=== PATIENT | male | born 1980 | race Caucasian/White ===

== ENCOUNTER → 2016-11-10 | Outpatient (CLI) | payer BC ==
--- NOTE | 2016-11-10 16:14 | XR ---
Cervical spine HISTORY: Neck pain, degenerative disc disease 5 views of the cervical spine correlated to prior exam 19 April 2015. C7-T1 is not visualized. No other interval change. IMPRESSION: Exam is somewhat limited. No significant abnormality is evident. Cervical MRI may be of b enefit.
--- NOTE | 2016-11-10 16:16 | XR ---
Thoracic spine HISTORY: Degenerative disc disease 3 views of the thoracic spine correlated to cervical spine same day Thoracic vertebral bodies show preserved height, alignment, and bone mineralization. Disc spaces are maintained. Minimal spinal curvature is noted. Mild spondylosis resonant the upper thoracic spine. C7 -T1 junction is noted to be normal and alignment and not seen on prior cervical spine. IMPRESSION: Mild degenerative disc changes. Mild spinal curvature.
== END | disposition home or self-care (01) ==
LOC: RADXRMAIN 10:50
PROVIDERS: ATTEND Physical Medicine & Rehabilitation
DX: M50.30 Other cervical disc degeneration, unspecified cervical region (principal); M47.814 Spondylosis without myelopathy or radiculopathy, thoracic region; M43.9 Deforming dorsopathy, unspecified
CPT/HCPCS: 72050; 72072

== ENCOUNTER 2016-12-10 14:45 | Inpatient (IN) | payer BC ==
[2016-12-10] MEDS ORDERED: PANTOPRAZOLE 40 MG/10 ML VIAL IVP STA (15:12)
[2016-12-10] MEDS ORDERED: METOCLOPRAMIDE 5 MG/ML 2 ML VIAL IVP STA (15:12)
[2016-12-10] MEDS ORDERED: HYDROmorphone 1 MG/ML 1 ML SYRINGE IVP STA (15:12)
[2016-12-10] MEDS ORDERED: SODIUM CHLORIDE 0.9% 1,000 ML IV STA ×2 (15:12)
[2016-12-10] MEDS ORDERED: KETOROLAC 30 MG/ML 1 ML VIAL IVP STA (15:12)
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
[2016-12-10 15:24] LABS: Basophils % (A) 0 %; CHCM 34.9; Eosinophils # (A) 0.2 k/uL (0-0.7); Eosinophils % (A) 1 %; HCT 50.7 % (39.0-53.0); HDW 2.59; HGB 17.2 gm/dL (13.0-17.5); Luc # (Auto) 0.06; Luc % (Auto) 1; Lymphocytes # (A) 0.4 k/uL (1.0-4.8); Lymphocytes % (A) 3 %; MCH 30.2 pg (25.0-35.0); MCHC 33.9 g/dL (31.0-37.0); Mean Platelet Volume 7.8; Monocytes # (A) 0.3 k/uL (0-1.0); Monocytes % (A) 3 %; Neutrophils # (A) 9.2 k/uL (1.3-7.7); Neutrophils % (A) 91 %; RBC 5.69 m/uL (4.30-5.90); RDW 13.1 % (11.5-15.5); WBC 10.1 k/uL (3.8-10.6)
[2016-12-10 15:28] LABS: Appearance,Urine Clear (Clear); Bilirubin,Urine Negative (Negative); Glucose,Urine (UA) Negative (Negative); Ketones,Urine Negative (Negative); Leukocyte Esterase,Urine Negative (Negative); Mucus,Urine Many /hpf; Nitrite,Urine Negative (Negative); PH, Urine 5.5 (5.0-8.0); Particle Count 9379; Protein,Urine 1+ (Negative); RBC,Urine <1 /hpf (0-5); Specific Gravity,Urine 1.028 (1.001-1.035); UA Billing (MACRO vs. MICRO) MICRO; Urobilinogen,Urine <2.0 mg/dL (<2.0); WBC,Urine <1 /hpf (0-5)
[2016-12-10 15:33] LABS: ALT 61 U/L (21-72); AST 31 U/L (17-59); Alkaline Phosphatase 60 U/L (38-126); Amylase <30 U/L (30-110); Anion Gap 17 mmol/L; Blood Urea Nitrogen 15 mg/dL (9-20); Calcium 9.9 mg/dL (8.4-10.2); Carbon Dioxide 21 mmol/L (22-30); Chloride 104 mmol/L (98-107); Glucose 131 mg/dL (74-99); Non-African American GFR(MDRD) >60 (>60 ml/min/1.73 sqM); Sodium 142 mmol/L (137-145); Total Bilirubin 0.7 mg/dL (0.2-1.3)
--- NOTE | 2016-12-10 16:02 | XR ---
EXAMINATION TYPE: XR abdomen 2V DATE OF EXAM: 12/10/2016 3:41 PM CLINICAL DATA: 36-year-old male with abdominal pain, [facility] COMPARISON: 12/19/2015 FINDINGS: Lung bases are clear. No evidence for free intraperitoneal air. There are small air-fluid levels throughout the colon without significant stool burden. Air extends d istally to the rectum. No dilated small bowel loops or small bowel air-fluid level seen. No definite suspicious calcifications. IMPRESSION: 1. Findings suggest generalized ileus or enteritis with liquid stool. 2.No evidence of bowel obstruction or free intraperitoneal air.
--- NOTE | 2016-12-10 17:04 | CT ---
EXAMINATION TYPE: CT abdomen pelvis wo con DATE OF EXAM: 12/10/2016 4:46 PM COMPARISON: 11/21/2015 HISTORY: 36-year-old male with left flank and left lower quadrant pain. History of kidney stones. CT DLP: 651.4 mGycm. Automated exposure control for dose reduction was used. TECHNIQUE: Contiguous axial scanning of the abdomen and pelvis without IV contrast. Coronal and sagit darrick reconstructions performed. FINDINGS: Heart is normal size without pericardial effusion. Prominent streaks of atelectasis at the lung bases without pleural effusion. Liver is enlarged measuring 20 cm craniocaudal with decreased attenuation compatible with fatty infil tration. Some focal fatty sparing along the gallbladder fossa. Noncontrast appearance of the gallbladder, adrenal glands, right kidney, left kidney, and pancreas gr ossly unremarkable. Spleen measures at the upper limits of normal in size at 13.9 cm. No dilated small bowel, free fluid, or free air. Some prominent fluid filled small bowel loops are no guillermo in the mid to lower abdomen. Numerous scattered nonenlarged mesenteric lymph nodes are present. T here is liquid stool throughout the right hemicolon and transverse colon. Bladder is nondistended. Rectum appears normal. No abnormal fluid collection in the pelvis or pelvic lymphadenopathy seen. Bones: There may be mild degenerative spurring at the hips. No osseous destructive process. IMPRESSION: 1. No nephrolithiasis, ureteral calculus, or hydronephrosis. 2. Some prominent fluid-filled small bowel loops in the mid and lower abdomen with liquid stool in t he right hemicolon. Correlate for enteritis. 3. Hepatomegaly and hepatic steatosis. Correlate with LFTs, lipid profile, and patient risk factors. 4. Spleen measures at the upper limits of normal in size.
[2016-12-10] MEDS ORDERED: ACETAMINOPHEN IV (For NPO) 1,000 MG in EMPTY BAG 1 BAG IVPB STA (18:15)
[2016-12-10] MEDS ORDERED: cefTRIAXone 2,000 MG in SODIUM CHLORIDE 0.9% 100 ML IVPB STA (18:35)
[2016-12-10] MEDS ORDERED: NALOXONE 0.4 MG/ML 1 ML VIAL IV PRN (18:38)
[2016-12-10] MEDS ORDERED: ACETAMINOPHEN TAB 325 MG TAB PO PRN (18:38)
[2016-12-10] MEDS ORDERED: ONDANSETRON 4 MG/2 ML VIAL IVP PRN (18:38)
[2016-12-10] MEDS: HYDROmorphone 1 MG/ML 1 ML SYRINGE IV PRN ×2 (18:55→21:50)
[2016-12-10] MEDS: SODIUM CHLORIDE 0.9% 1,000 ML IV SCH (20:55)
[2016-12-10 21:09] VITALS: BMI 34.8
[2016-12-11] MEDS: HYDROmorphone 1 MG/ML 1 ML SYRINGE IV PRN ×6 (01:12→20:50)
[2016-12-11] MEDS: SODIUM CHLORIDE 0.9% 1,000 ML IV SCH ×3 (04:41→20:43)
[2016-12-11] MEDS: PANTOPRAZOLE 40 MG/10 ML VIAL IV SCH (08:34)
[2016-12-11] MEDS ORDERED: cefTRIAXone 2,000 MG in SODIUM CHLORIDE 0.9% 100 ML IVPB SCH (18:00)
[2016-12-11 22:24] VITALS: RESP 20
[2016-12-12] MEDS: HYDROmorphone 1 MG/ML 1 ML SYRINGE IV PRN ×4 (00:16→10:45)
[2016-12-12] MEDS: SODIUM CHLORIDE 0.9% 1,000 ML IV SCH ×2 (04:55→11:25)
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
[2016-12-12 07:37] VITALS: BP 120/65; PULSE 66; TEMP 96.2
[2016-12-12] MEDS: PANTOPRAZOLE 40 MG/10 ML VIAL IV SCH (08:10)
[2016-12-12 10:36] LABS: Basophils % (A) 0 %; CH 30.7; CHCM 34.6; Eosinophils # (A) 0.3 k/uL (0-0.7); Eosinophils % (A) 7 %; HCT 38.8 % (39.0-53.0); HDW 2.63; Luc # (Auto) 0.14; Luc % (Auto) 4; Lymphocytes # (A) 1.1 k/uL (1.0-4.8); Lymphocytes % (A) 27 %; MCH 30.5 pg (25.0-35.0); MCHC 34.2 g/dL (31.0-37.0); MCV 89.2 fL (80.0-100.0); Monocytes # (A) 0.4 k/uL (0-1.0); Monocytes % (A) 9 %; Neutrophils # (A) 2.1 k/uL (1.3-7.7); Neutrophils % (A) 53 %; RBC 4.35 m/uL (4.30-5.90); RDW 12.7 % (11.5-15.5); WBC (Perox) 4.32
[2016-12-12 10:41] LABS: HGB 13.3 gm/dL (13.0-17.5)
[2016-12-12 11:23] LABS: Anion Gap 10 mmol/L; Blood Urea Nitrogen 7 mg/dL (9-20); Calcium 8.5 mg/dL (8.4-10.2); Carbon Dioxide 23 mmol/L (22-30); Chloride 111 mmol/L (98-107); Glucose 89 mg/dL (74-99); Non-African American GFR(MDRD) >60 (>60 ml/min/1.73 sqM); Potassium 4.3 mmol/L (3.5-5.1); Sodium 144 mmol/L (137-145)
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
== END 2016-12-12 12:40 | disposition home or self-care (01) | DRG 392 ==
LOC: EC 14:45 → 4MS4W 18:38
PROVIDERS: ADMIT Internal Medicine; ATTEND Internal Medicine
DX: A08.4 Viral intestinal infection, unspecified (principal); R65.10 Systemic inflammatory response syndrome (SIRS) of non-infectious origin without acute organ dysfunction; K76.0 Fatty (change of) liver, not elsewhere classified; M54.5 Low back pain; R50.9 Fever, unspecified; R00.0 Tachycardia, unspecified; F17.200 Nicotine dependence, unspecified, uncomplicated; R30.0 Dysuria; R16.0 Hepatomegaly, not elsewhere classified; Z86.718 Personal history of other venous thrombosis and embolism; Z87.442 Personal history of urinary calculi; Z90.01 Acquired absence of eye; Z82.49 Family history of ischemic heart disease and other diseases of the circulatory system; Z79.891 Long term (current) use of opiate analgesic; Z79.899 Other long term (current) drug therapy; Z76.5 Malingerer [conscious simulation]; Z90.49 Acquired absence of other specified parts of digestive tract; Z71.6 Tobacco abuse counseling; Z80.3 Family history of malignant neoplasm of breast; Z80.51 Family history of malignant neoplasm of kidney
CPT/HCPCS: 36415; 74020; 74176; 80048; 80053; 80299; 81001; 82150; 83690; 85025; 87086; 96361; 96365; 96375; 96376; 99285

== ENCOUNTER 2018-11-17 16:41 | Emergency (ER) | payer BC ==
[2018-11-17 16:48] VITALS: TEMP 98.4
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
[2018-11-17] MEDS ORDERED: cloNIDine HCL 0.1 MG TAB PO STA (17:36)
[2018-11-17] MEDS ORDERED: INDOMETHACIN 25 MG CAP PO STA (17:54)
[2018-11-17] MEDS ORDERED: PROPRANOLOL 10 MG TAB PO STA (18:21)
[2018-11-17 18:30] VITALS: BP 146/100; PULSE 89; RESP 18
== END 2018-11-17 18:37 | disposition home or self-care (01) ==
LOC: EC 16:41
DX: G44.82 Headache associated with sexual activity (principal); J02.9 Acute pharyngitis, unspecified; F17.200 Nicotine dependence, unspecified, uncomplicated; Z86.69 Personal history of other diseases of the nervous system and sense organs; Z53.8 Procedure and treatment not carried out for other reasons
CPT/HCPCS: 70450; 87081; 87430; 99284

== ENCOUNTER 2019-08-31 11:02 | Emergency (ER) | payer SELFPAY ==
[2019-08-31 11:14] VITALS: TEMP 98.8
[2019-08-31] MEDS ORDERED: methylPREDNISolone SOD SUCCI 125 MG/2 ML VIAL IV STA (11:35)
[2019-08-31] MEDS ORDERED: FAMOTIDINE 20 MG/2 ML VIAL IV STA (11:35)
[2019-08-31] MEDS ORDERED: MORPHINE SULFATE 4 MG/ML SYRINGE IVP STA (11:35)
[2019-08-31 12:36] LABS: Basophils # (A) 0.1 k/uL (0-0.2); Basophils % (A) 1 %; Eosinophils # (A) 0.4 k/uL (0-0.7); Eosinophils % (A) 4 %; HCT 45.2 % (39.0-53.0); HGB 15.7 gm/dL (13.0-17.5); Lymphocytes # (A) 1.7 k/uL (1.0-4.8); Lymphocytes % (A) 17 %; MCH 32.2 pg (25.0-35.0); MCHC 34.7 g/dL (31.0-37.0); MCV 92.8 fL (80.0-100.0); Mean Platelet Volume 8.3; Monocytes # (A) 0.6 k/uL (0-1.0); Monocytes % (A) 6 %; Neutrophils # (A) 7.1 k/uL (1.3-7.7); Neutrophils % (A) 71 %; Platelet Count 146 k/uL (150-450); RBC 4.87 m/uL (4.30-5.90); RDW 12.7 % (11.5-15.5)
[2019-08-31 12:41] LABS: ALT 132 U/L (21-72); AST 64 U/L (17-59); African American GFR (CKD) >90 (>60 ml/min/1.73 sqM); Albumin 4.2 g/dL (3.5-5.0); Alkaline Phosphatase 83 U/L (38-126); Anion Gap 9 mmol/L; Blood Urea Nitrogen 9 mg/dL (9-20); C Reactive Protein 9.2 mg/L (<10.0); Calcium 8.9 mg/dL (8.4-10.2); Carbon Dioxide 23 mmol/L (22-30); Chloride 108 mmol/L (98-107); Glucose 108 mg/dL (74-99); Potassium 3.7 mmol/L (3.5-5.1); Sodium 140 mmol/L (137-145); Total Bilirubin 0.3 mg/dL (0.2-1.3); Total Protein 7.1 g/dL (6.3-8.2)
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
[2019-08-31 13:51] VITALS: BP 136/88; PULSE 87; RESP 16
== END 2019-08-31 13:51 | disposition home or self-care (01) ==
LOC: EC 11:02
DX: L03.211 Cellulitis of face (principal); J32.4 Chronic pansinusitis; F17.200 Nicotine dependence, unspecified, uncomplicated; Z88.1 Allergy status to other antibiotic agents; Z97.0 Presence of artificial eye; Z87.828 Personal history of other (healed) physical injury and trauma; Z98.890 Other specified postprocedural states
CPT/HCPCS: 99284; 96374; 96375 ×2; 36415; 80053; 85025; 86140; 70487; J2270; J2930; Q9967

== ENCOUNTER 2020-01-20 10:51 | Emergency (ER) | payer OTHER ==
[2020-01-20 10:55] VITALS: RESP 18; TEMP 98.2
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
--- NOTE | 2020-01-20 11:18 | XR ---
EXAMINATION TYPE: XR chest 2V DATE OF EXAM: 01/20/2020 COMPARISON: NONE HISTORY: Flulike symptoms and cough. TECHNIQUE: Frontal and lateral views of the chest are obtained. FINDINGS: Low lung volumes with bilateral perihilar peribronchial cuffing. There is no suspicious pe ripheral focal air space opacity, pleural effusion, or pneumothorax seen. The cardiac silhouette siz e is upper limits of normal. The osseous structures are intact. IMPRESSION: Central perihilar peribronchial cuffing consistent with reactive airway disease possibly from a viral bronchiolitis.
[2020-01-20 11:53] VITALS: BP 153/93; PULSE 86
== END 2020-01-20 11:45 | disposition home or self-care (01) ==
LOC: EC 10:51
DX: J20.9 Acute bronchitis, unspecified (principal); T46.1X5A Adverse effect of calcium-channel blockers, initial encounter; M79.89 Other specified soft tissue disorders; F17.200 Nicotine dependence, unspecified, uncomplicated; Z90.01 Acquired absence of eye
CPT/HCPCS: 71046; 87502; 99283

== ENCOUNTER 2020-04-05 12:32 | Inpatient (IN) | payer OTHER ==
[2020-04-05] MEDS ORDERED: MORPHINE SULFATE 4 MG/ML SYRINGE IVP STA (13:42)
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
[2020-04-05 13:59] LABS: Basophils # (A) 0.1 k/uL (0-0.2); Basophils % (A) 1 %; Eosinophils # (A) 0.2 k/uL (0-0.7); Eosinophils % (A) 3 %; HCT 43.5 % (39.0-53.0); HGB 13.8 gm/dL (13.0-17.5); Lymphocytes # (A) 1.7 k/uL (1.0-4.8); Lymphocytes % (A) 24 %; MCHC 31.7 g/dL (31.0-37.0); MCV 100.9 fL (80.0-100.0); Macrocytosis Slight; Mean Platelet Volume 10.7; Monocytes # (A) 0.5 k/uL (0-1.0); Monocytes % (A) 7 %; Neutrophils # (A) 4.4 k/uL (1.3-7.7); Neutrophils % (A) 63 %; Platelet Count 100 k/uL (150-450); RBC 4.31 m/uL (4.30-5.90); RDW 14.3 % (11.5-15.5)
[2020-04-05 14:08] LABS: INR 1.3 (<1.2); Partial Thromboplastin Time 28.2 sec (22.0-30.0); Prothrombin Time 12.6 sec (9.0-12.0)
[2020-04-05 14:11] LABS: Albumin 4.3 g/dL (3.5-5.0); Calcium 7.9 mg/dL (8.4-10.2); Potassium 2.8 mmol/L (3.5-5.1); Total Bilirubin 3.1 mg/dL (0.2-1.3); Total Protein 8.2 g/dL (6.3-8.2)
[2020-04-05 14:13] LABS: Appearance,Urine Turbid (Clear); Bilirubin,Urine 1+ (Negative); Blood,Urine Small (Negative); Color,Urine Light Brown; Glucose,Urine (UA) Negative (Negative); Ketones,Urine Negative (Negative); Leukocyte Esterase,Urine Negative (Negative); Nitrite,Urine Negative (Negative); Protein,Urine 1+ (Negative); RBC,Urine 3 /hpf (0-5); Specific Gravity,Urine 1.019 (1.001-1.035); WBC,Urine 3 /hpf (0-5)
--- NOTE | 2020-04-05 14:23 | XR ---
EXAMINATION TYPE: XR shoulder complete RT DATE OF EXAM: 04/05/2020 COMPARISON: NONE HISTORY: Pain TECHNIQUE: Three views are submitted. FINDINGS: The osseous structures are intact. There is no acute fracture or dislocation. The AC joint is maint ained. IMPRESSION: 1. No acute process. If symptoms persist consider MRI.
--- NOTE | 2020-04-05 14:24 | XR ---
EXAMINATION TYPE: XR Hip Complete RT DATE OF EXAM: 04/05/2020 COMPARISON: NONE HISTORY: Pain TECHNIQUE: 2 views submitted FINDINGS: There is no evidence of erosive change or acute fracture. Very mild hypertrophic change along the lateral margin the acetabulum which can sometimes be associat ed with femoral acetabular impingement. IMPRESSION: 1. No evidence of acute fracture or dislocation. 2. Correlate for femoral acetabular impingement.
--- NOTE | 2020-04-05 14:24 | XR ---
EXAMINATION TYPE: XR chest 2V DATE OF EXAM: 04/05/2020 COMPARISON: 01/20/2020 TECHNIQUE: PA and lateral views submitted. HISTORY: Shortness of breath FINDINGS: The lungs are clear and there is no pneumothorax, pleural effusion, or focal pneumonia. Biapical pl eural thickening. No overt failure. Subsegmental changes at the lung bases most typical of atelectasi s or scar. IMPRESSION: 1. Limited inspiration. Subsegmental changes the lung bases for which atelectasis favored over pneumo karen. Correlate clinically.
[2020-04-05] MEDS ORDERED: POTASSIUM CHLORIDE ER 20 MEQ TAB.ER PO STA (16:01)
[2020-04-05] MEDS ORDERED: KETOROLAC 30 MG/ML 1 ML VIAL IVP STA (16:17)
[2020-04-05] MEDS ORDERED: SODIUM CHLORIDE 0.9% 1,000 ML IV STA (16:17)
[2020-04-05] MEDS ORDERED: ONDANSETRON 4 MG/2 ML VIAL IVP STA (16:17)
[2020-04-05] MEDS ORDERED: METOCLOPRAMIDE 5 MG/ML 2 ML VIAL IVP STA (16:46)
[2020-04-05] MEDS ORDERED: diphenhydrAMINE 50 MG/ML 1 ML VIAL IVP STA (16:46)
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
[2020-04-05] MEDS ORDERED: NALOXONE 0.4 MG/ML 1 ML VIAL IV PRN (18:09)
[2020-04-05] MEDS ORDERED: ALPRAZolam 0.25 MG TAB PO PRN (18:09)
[2020-04-05] MEDS ORDERED: SODIUM CHLORIDE 0.9% 1,000 ML IV SCH (18:15)
[2020-04-05] MEDS ORDERED: THIAMINE 100 MG/ML 2 ML VIAL IM STA (19:22)
[2020-04-05] MEDS ORDERED: LORazepam 2 MG/ML INJ IV PRN (19:22)
[2020-04-05 19:29] LABS: Amylase 48 U/L (30-110)
[2020-04-05] MEDS: MAGNESIUM SULFATE-D5W PMX 1 GM in DEXTROSE/WATER 1 100ML.BAG IVPB SCH ×2 (19:37→21:29)
[2020-04-05] MEDS: HYDROmorphone 0.5 MG/0.5 ML SYRINGE IVP PRN (21:30)
[2020-04-05] MEDS ORDERED: IOPAMIDOL CONTRAST (ORAL USE) VIAL PO PRN (22:57)
[2020-04-05] MEDS ORDERED: Magnesium Replacement Protocol 1 EACH MISC MISCELLANE PRN (22:59)
[2020-04-05] MEDS ORDERED: Potassium Replacement Protocol 1 EACH MISC MISCELLANE PRN (22:59)
[2020-04-05] MEDS: SODIUM CHLORIDE 0.9% 1,000 ML with POTASSIUM CHLORIDE 40 MEQ IV SCH ×2 (23:56)
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
[2020-04-06] MEDS: HYDROmorphone 0.5 MG/0.5 ML SYRINGE IVP PRN (02:52)
[2020-04-06] MEDS: PANTOPRAZOLE 40 MG/10 ML VIAL IVP SCH ×2 (07:57→20:20)
[2020-04-06] MEDS: HEPARIN SODIUM,PORCINE 5,000 UNIT/ML 1 ML VIAL SQ SCH ×2 (07:57→20:20)
[2020-04-06] MEDS: SODIUM CHLORIDE 0.9% 1,000 ML with POTASSIUM CHLORIDE 40 MEQ IV SCH ×2 (07:57)
[2020-04-06 08:01] LABS: Basophils % (A) 1 %; Eosinophils # (A) 0.1 k/uL (0-0.7); Eosinophils % (A) 1 %; HCT 38.7 % (39.0-53.0); HGB 12.8 gm/dL (13.0-17.5); Lymphocytes # (A) 0.8 k/uL (1.0-4.8); Lymphocytes % (A) 13 %; MCH 33.7 pg (25.0-35.0); MCV 102.2 fL (80.0-100.0); Macrocytosis Slight; Mean Platelet Volume 10.9; Monocytes # (A) 0.4 k/uL (0-1.0); Monocytes % (A) 6 %; Neutrophils # (A) 4.7 k/uL (1.3-7.7); Neutrophils % (A) 78 %; RBC 3.79 m/uL (4.30-5.90); RDW 14.4 % (11.5-15.5)
[2020-04-06 08:03] LABS: Albumin 3.6 g/dL (3.5-5.0); Calcium 7.2 mg/dL (8.4-10.2); Magnesium 1.1 mg/dL (1.6-2.3); Total Bilirubin 4.6 mg/dL (0.2-1.3); Total Protein 7.2 g/dL (6.3-8.2)
[2020-04-06 08:07] LABS: Potassium 2.7 mmol/L (3.5-5.1)
[2020-04-06] MEDS: LORazepam 2 MG/ML INJ IV PRN ×2 (08:14→13:50)
[2020-04-06] MEDS ORDERED: Potassium Replacement Protocol 1 EACH MISC MISCELLANE PRN ×2 (08:15→11:52)
[2020-04-06] MEDS: POTASSIUM CHLORIDE ER 20 MEQ TAB.ER PO SCH ×6 (08:19→15:12)
[2020-04-06 08:49] LABS: Platelet Count 66 k/uL (150-450)
[2020-04-06] MEDS ORDERED: PANTOPRAZOLE 40 MG/10 ML VIAL IV SCH (09:00)
[2020-04-06] MEDS ORDERED: LOSARTAN 50 MG TAB PO SCH (09:00)
[2020-04-06] MEDS ORDERED: Magnesium Replacement Protocol 1 EACH MISC MISCELLANE PRN (09:00)
[2020-04-06] MEDS: MAGNESIUM SULFATE-D5W PMX 1 GM in DEXTROSE/WATER 1 100ML.BAG IVPB SCH ×3 (09:12→11:32)
--- NOTE | 2020-04-06 11:04 | CT ---
EXAMINATION TYPE: CT abdomen pelvis wo con DATE OF EXAM: 04/06/2020 COMPARISON: 12/10/2016 INDICATION: Abd pain DLP: 1363.4 mGycm, Automated exposure control for dose reduction was used. CONTRAST: 0 mL of Isovue 300. Study performed without Oral Contrast TECHNIQUE: Axial images were obtained from above the diaphragm to the pubic rami in the axial plane a t 5 mm thick sections. Reconstructed images are reviewed on the computer in the coronal plane. FINDINGS: Limited CT sections are obtained the lung bases. There is some thickening along the major fissure on the right which may be some underlying atelectasis. Minimal fluid could be considered. No pleural ef fusion is identified however. Remainder the lung bases visualized are unremarkable. CT ABDOMEN: Liver: There is moderate to severe fatty infiltration to the liver. Adjacent to the gallbladder bed f daniel is a lobular hypodense area of uncertain etiology. Underlying mass is considered. This measures 4.2 x 3.1 cm. Spleen: Enlarged. This is larger than the comparison 2016. This measures 17.5 cm AP by 16.2 cm cranio caudal dimension Pancreas: Normal Adrenal glands: The adrenal glands are normal. Gallbladder: Normal Kidneys: No masses are evident. No hydronephrosis is present. No cysts are present. No renal stone s are identified. Aorta: Vascular calcification is within the aorta. Inferior vena cava: Normal. CT PELVIS: The ascending colon has thickened wall which extends into the proximal transverse colon. Correlate fo r colitis. Milder wall thickening is within the descending colon. There is thickened wall to the sigm oid colon. Correlate for colitis. Appendix: Not identified. Patient has a history of prior appendectomy. Urinary bladder: Decompressed with limited evaluation. Genitourinary structures: Prostate is unremarkable. Osseous structures: No suspicious lytic or sclerotic lesions. IMPRESSIONS: 1. Colitis involving both ascending and descending colon as well as sigmoid colon. 2. Minimal free fluid within the pelvis. 3. Significant fatty infiltration to the enlarged liver. Hypodense lobular mass near the gallbladder bed fossa cannot be excluded. 4. Organomegaly prior exam
--- NOTE | 2020-04-06 13:18 | XR ---
EXAMINATION TYPE: XR chest 1V portable DATE OF EXAM: 04/06/2020 COMPARISON: 04/05/2020 HISTORY: Shortness of breath TECHNIQUE: Single frontal view of the chest is obtained. FINDINGS: There is no focal air space opacity, pleural effusion, or pneumothorax seen. The cardiac silhouette size is within normal limits. The osseous structures are intact. Subsegmental changes at the lung bases. IMPRESSION: Basilar atelectasis favored over pneumonia correlate clinically for confirmation.
[2020-04-06] MEDS: amLODIPine 5 MG TAB PO SCH (13:50)
[2020-04-06] MEDS: AMPICILLIN-SULBACTAM 3 GM in SODIUM CHLORIDE 0.9% 100 ML IVPB SCH ×2 (13:51→20:23)
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
[2020-04-06] MEDS: HYDROcodone/APAP 5-325MG 1 EACH TAB PO PRN (20:22)
[2020-04-07] MEDS: LORazepam 2 MG/ML INJ IV PRN ×3 (00:16→21:04)
[2020-04-07] MEDS: HYDROcodone/APAP 5-325MG 1 EACH TAB PO PRN (05:48)
[2020-04-07] MEDS: AMPICILLIN-SULBACTAM 3 GM in SODIUM CHLORIDE 0.9% 100 ML IVPB SCH ×3 (05:50→21:46)
[2020-04-07] MEDS: SODIUM CHLORIDE 0.9% 1,000 ML with POTASSIUM CHLORIDE 40 MEQ IV SCH ×2 (05:54)
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
[2020-04-07] MEDS: HEPARIN SODIUM,PORCINE 5,000 UNIT/ML 1 ML VIAL SQ SCH ×2 (07:45→21:03)
[2020-04-07] MEDS: amLODIPine 5 MG TAB PO SCH (07:45)
[2020-04-07] MEDS: PANTOPRAZOLE 40 MG/10 ML VIAL IVP SCH ×2 (07:45→21:03)
[2020-04-07 08:47] LABS: Basophils % (A) 1 %; Eosinophils # (A) 0.2 k/uL (0-0.7); Eosinophils % (A) 4 %; HCT 39.1 % (39.0-53.0); HGB 12.6 gm/dL (13.0-17.5); Lymphocytes # (A) 1.1 k/uL (1.0-4.8); Lymphocytes % (A) 19 %; MCH 33.8 pg (25.0-35.0); MCHC 32.3 g/dL (31.0-37.0); MCV 104.6 fL (80.0-100.0); Macrocytosis Moderate; Mean Platelet Volume 11.8; Monocytes # (A) 0.4 k/uL (0-1.0); Monocytes % (A) 6 %; Neutrophils # (A) 3.8 k/uL (1.3-7.7); Neutrophils % (A) 68 %; RBC 3.73 m/uL (4.30-5.90); RDW 14.4 % (11.5-15.5); WBC 5.6 k/uL (3.8-10.6)
[2020-04-07 08:49] LABS: Platelet Count 66 k/uL (150-450)
[2020-04-07 09:11] LABS: ALT 25 U/L (4-49); AST 172 U/L (17-59); African American GFR (CKD) >90 (>60 ml/min/1.73 sqM); Albumin 3.7 g/dL (3.5-5.0); Alkaline Phosphatase 206 U/L (38-126); Anion Gap 13 mmol/L; Blood Urea Nitrogen 9 mg/dL (9-20); Calcium 7.5 mg/dL (8.4-10.2); Carbon Dioxide 26 mmol/L (22-30); Chloride 103 mmol/L (98-107); Glucose 94 mg/dL (74-99); Non-African American GFR(CKD) 86 (>60 ml/min/1.73 sqM); Potassium 2.9 mmol/L (3.5-5.1); Sodium 142 mmol/L (137-145); Total Protein 7.4 g/dL (6.3-8.2)
[2020-04-07] MEDS: POTASSIUM CHLORIDE ER 20 MEQ TAB.ER PO SCH ×6 (10:04→18:07)
[2020-04-07] MEDS ORDERED: Magnesium Replacement Protocol 1 EACH MISC MISCELLANE PRN (10:31)
[2020-04-07] MEDS: MAGNESIUM SULFATE-D5W PMX 1 GM in DEXTROSE/WATER 1 100ML.BAG IVPB SCH ×4 (11:29→16:46)
[2020-04-07] MEDS ORDERED: PEG 3350-NA SULF,BICARB,CL/KCL 4,000 ML BOTTLE PO ONE (12:00)
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
[2020-04-07] MEDS ORDERED: Potassium Replacement Protocol 1 EACH MISC MISCELLANE PRN (14:31)
--- NOTE | 2020-04-07 15:03 | P.PN ---
Subjective Progress Note Date: 04/07/20 CHIEF COMPLAINT: Cholecystitis HISTORY OF PRESENT ILLNESS: Patient examined at the bedside with Dr. Quan. He denies abdominal pain. Tolerating clear liquid diet. Denies nausea or vomiting. Vital signs are stable. He is afebrile. W BC 5.6. Hemoglobin 12.6. Potassium 2.9. Bilirubin increased from 4.6-8.0. AST 172. ALT 25. PHYSICAL EXAM: VITAL SIGNS: Reviewed. GENERAL: Well-developed in no acute distress. HEENT: No sclera icterus. Extraocular movements grossly intact. Moist buccal mucosa. Head is atraumatic, normocephalic. ABDOMEN: Soft. Nondistended. Nontender. NEUROLOGIC: Alert and oriented. Cranial nerves II through XII grossly intact. ASSESSMENT: 1. Abdominal pain 2. Colitis 3. History of alcohol abuse 4. Biliary sludge 5. Hyperbilirubinemia PLAN: -Continue clear liquid diet. Nothing by mouth at midnight -Patient to complete GoLYTELY bowel prep today -Patient to undergo colonoscopy tomorrow with Dr. Quan Nurse practitioner note has been reviewed by physician. Signing provider agrees with the documented findings, assessment, and plan of care. Objective - Vital Signs Vital signs: Vital Signs Temp 98.3 F 04/07/20 07:00 Pulse 89 04/07/20 07:00 Resp 18 04/07/20 07:00 BP 142/87 04/07/20 07:00 Pulse Ox 91 L 04/07/20 07:00 Intake & Output 04/06/20 04/07/20 04/07/20 18:59 06:59 18:59 Intake Total 1100 Balance 1100 Intake: Intake, IV Titration 1000 Amount Ampicillin-Sulbactam 3 gm 100 In Sodium Chloride 0.9% 100 ml @ 200 mls/hr IVPB Q8H [facility] Rx#:[id number] Sodium Chloride 0.9% 1, 900 000 ml @ 75 mls/hr IV . [id number] [facility] with Potassium Chloride 40 meq Rx#:[id number] Oral 100 Other: Voiding Method Toilet Toilet Urinal Urinal # Voids 1 2 # Bowel Movements 2 - Labs CBC & Chem 7: 04/07/20 07:53 04/07/20 14:01 Labs: Abnormal Lab Results - Last 24 Hours (Table) 0604/07/20 04/07/20 Range/Units 16:55 07:53 07:53 RBC 3.73 L (4.30-5.90) m/uL Hgb 12.6 L (13.0-17.5) gm/dL MCV 104.6 H (80.0-100.0) fL Plt Count 66 L (150-450) k/uL Potassium 3.0 L 2.9 L (3.5-5.1) mmol/L Calcium 7.5 L (8.4-10.2) mg/dL Magnesium (1.6-2.3) mg/dL Total Bilirubin 8.0 H (0.2-1.3) mg/dL AST 172 H (17-59) U/L Alkaline Phosphatase 206 H (38-126) U/L 04/07/20 Range/Units 07:53 RBC (4.30-5.90) m/uL Hgb (13.0-17.5) gm/dL MCV (80.0-100.0) fL Plt Count (150-450) k/uL Potassium (3.5-5.1) mmol/L Calcium (8.4-10.2) mg/dL Magnesium 1.2 L (1.6-2.3) mg/dL Total Bilirubin (0.2-1.3) mg/dL AST (17-59) U/L Alkaline Phosphatase (38-126) U/L Microbiology - Last 24 Hours (Table) 04/05/20 13:58 Group A Strep Throat Culture - Final Throat
[2020-04-07 20:42] LABS: Magnesium 1.6 mg/dL (1.6-2.3)
[2020-04-07 22:13] LABS: Potassium 2.7 mmol/L (3.5-5.1)
[2020-04-08] MEDS: 0.9% NACL WITH KCL 40 MEQ/L 1,000 ML IV SCH ×2 (00:11→12:16)
[2020-04-08] MEDS: LORazepam 2 MG/ML INJ IV PRN ×7 (00:23→23:08)
[2020-04-08] MEDS: AMPICILLIN-SULBACTAM 3 GM in SODIUM CHLORIDE 0.9% 100 ML IVPB SCH ×3 (05:38→23:07)
[2020-04-08] MEDS ORDERED: LORazepam 2 MG/ML INJ IV STA (06:34)
[2020-04-08] MEDS: HEPARIN SODIUM,PORCINE 5,000 UNIT/ML 1 ML VIAL SQ SCH ×2 (08:18→23:08)
[2020-04-08] MEDS: amLODIPine 5 MG TAB PO SCH (08:23)
[2020-04-08] MEDS: PANTOPRAZOLE 40 MG/10 ML VIAL IVP SCH ×2 (08:23→23:08)
[2020-04-08 08:53] LABS: Basophils % (A) 0 %; Eosinophils # (A) 0.2 k/uL (0-0.7); Eosinophils % (A) 4 %; HCT 35.2 % (39.0-53.0); HGB 12.1 gm/dL (13.0-17.5); Lymphocytes % (A) 20 %; MCHC 34.5 g/dL (31.0-37.0); MCV 101.4 fL (80.0-100.0); Macrocytosis Slight; Mean Platelet Volume 10.7; Monocytes # (A) 0.4 k/uL (0-1.0); Monocytes % (A) 7 %; Neutrophils # (A) 3.5 k/uL (1.3-7.7); Neutrophils % (A) 67 %; RBC 3.47 m/uL (4.30-5.90); RDW 14.3 % (11.5-15.5); WBC 5.3 k/uL (3.8-10.6)
[2020-04-08 08:54] LABS: Platelet Count 64 k/uL (150-450)
[2020-04-08 09:00] LABS: ALT 26 U/L (4-49); AST 155 U/L (17-59); African American GFR (CKD) >90 (>60 ml/min/1.73 sqM); Albumin 3.4 g/dL (3.5-5.0); Alkaline Phosphatase 178 U/L (38-126); Anion Gap 9 mmol/L; Blood Urea Nitrogen 8 mg/dL (9-20); Carbon Dioxide 28 mmol/L (22-30); Chloride 104 mmol/L (98-107); Glucose 82 mg/dL (74-99); Magnesium 1.1 mg/dL (1.6-2.3); Non-African American GFR(CKD) >90 (>60 ml/min/1.73 sqM); Sodium 141 mmol/L (137-145); Total Bilirubin 8.7 mg/dL (0.2-1.3); Total Protein 6.9 g/dL (6.3-8.2)
[2020-04-08 09:20] LABS: Potassium 2.5 mmol/L (3.5-5.1)
[2020-04-08] MEDS ORDERED: POTASSIUM CHLORIDE ER 20 MEQ TAB.ER PO STA (09:57)
[2020-04-08] MEDS ORDERED: Magnesium Replacement Protocol 1 EACH MISC MISCELLANE PRN (10:10)
[2020-04-08] MEDS: MAGNESIUM SULFATE-D5W PMX 1 GM in DEXTROSE/WATER 1 100ML.BAG IVPB SCH ×3 (10:25→14:23)
--- NOTE | 2020-04-08 13:37 | P.PN ---
Subjective Progress Note Date: 04/08/20 Principal diagnosis: Is a 39-year-old male recently admitted with upper abdominal pain, vomiting, diarrhea is being closely monitored. Patient's LFTs were elevated and patient was also found to have hypomagnesemia along with hypokalemia. Patient underwent an abdominal ultrasound which showed some biliary sludge suggested of cholecystitis and being evaluated by surgery. During examination patient does admit to drinking large amounts of whiskey daily and was placed on CIWA p rotocol. Patient continues to have some shaking with intermittent nausea and diarrhea noted. Patient underwent a CT of the abdomen showing moderate to severe fatty infiltration of the liver, a lobular hypodense area of uncertain etiology with the possibility of an underlying mass measuring approximately 4.2 cm x 3.1 cm, spleen is enlarged, colitis involving both ascending and descending colon as well as sigmoid colon along with minimal free fluid within the pelvis. Patient having intermittent episodes of shortness of breath and a chest x-ray was done showing basilar atelectasis. Patient will be initiated on Unasyn. Patient is to continue with a clear liquid diet and await surgical evaluation. 04/07/2020 Patient is seen and evaluated and follow-up and is currently starting a prep for a colonoscopy in the morning with Dr. Quan. Patient is maintained on CIWA protocol and states he is feeling better than yesterday. Patient continues to have abdominal tenderness along with some nausea and diarrhea. Potassium this morning continues to be low at 2.9 and will be replaced. Magnesium is also 1.2 and being replaced. Current creatinine is 1.09 with slight improvement today. Patient denies any acute overnight issues. No reports of chest pain or palpitations. Patient denies shortness of breath. Patient is afebrile. 04/08/2020 Patient is seen and evaluated and follow-up and is having withdrawals with intermittent episodes of hallucinating requiring Ativan. Patient was scheduled to undergo colonoscopy although was canceled by anesthesia as potassium is currently 2.5 and magnesium is 1.1. Patient has completed a bowel prep and continues to have liquid stools. Patient is maintained on CIWA protocol and will continue. Spoke to the family members and they wish to proceed with the colonoscopy and his treatment plan and patient was made aware. Throughout the night, per nursing staff patient removed multiple IVs with attempts at leaving AGAINST MEDICAL ADVICE. Currently patient is resting and in no acute distress at this time. Replacing magnesium and potassium per protocol and will repeat labs with the colonoscopy being rescheduled for tomorrow morning. Surgery is following. Objective - Vital Signs Vital signs: Vital Signs Temp 98.5 F 04/08/20 00:49 Pulse 115 H 04/08/20 03:08 Resp 20 04/08/20 03:54 BP 131/82 04/08/20 00:49 Pulse Ox 95 04/08/20 00:49 Intake & Output 04/07/20 04/08/20 04/08/20 18:59 06:59 18:59 Intake Total 1140 Balance 1140 Intake: Intake, IV Titration 900 Amount 0.9% NaCl with KCl 40 Meq 900 /l 1,000 ml @ 75 mls/hr IV .[id number] ILSA Rx#: [id number] Oral 240 Other: Voiding Method Toilet Urinal # Voids 2 1 # Bowel Movements 1 1 - Exam Gen: This is a 39-year-old male sitting up in the chair asleep but arousable, a lert and oriented 1-2, well-developed, well-nourished, obese HEENT: Head is atraumatic, normocephalic. Pupils equal, round. Sclerae is anicteric. NECK: Supple. No JVD. No lymphadenopathy. No thyromegaly. LUNGS: Diminished breath sounds with no wheezing or rhonchi noted. No intercostal retractions. HEART: Regular rate and rhythm. No murmur. ABDOMEN: Soft. Obese. Bowel sounds are present. No masses. Mild tenderness of the upper right and left quadrants with palpation. Slightly improved from yesterday EXTREMITIES: No pedal edema. No calf tenderness. NEUROLOGICAL: Patient is awake, alert and oriented x1-2. Cranial nerves 2 through 12 are grossly intact. - Labs CBC & Chem 7: 04/08/20 07:55 04/08/20 07:55 Labs: Abnormal Lab Results - Last 24 Hours (Table) 04/07/20 04/07/20 04/08/20 Range/Units 14:01 20:03 07:55 RBC 3.47 L (4.30-5.90) m/uL Hgb 12.1 L (13.0-17.5) gm/dL Hct 35.2 L (39.0-53.0) % MCV 101.4 H (80.0-100.0) fL Plt Count 64 L (150-450) k/uL Potassium 2.7 L* 2.7 L* (3.5-5.1) mmol/L BUN (9-20) mg/dL Calcium (8.4-10.2) mg/dL Magnesium (1.6-2.3) mg/dL Total Bilirubin (0.2-1.3) mg/dL AST (17-59) U/L Alkaline Phosphatase (38-126) U/L Albumin (3.5-5.0) g/dL 04/08/20 Range/Units 07:55 RBC (4.30-5.90) m/uL Hgb (13.0-17.5) gm/dL Hct (39.0-53.0) % MCV (80.0-100.0) fL Plt Count (150-450) k/uL Potassium 2.5 L* (3.5-5.1) mmol/L BUN 8 L (9-20) mg/dL Calcium 7.0 L (8.4-10.2) mg/dL Magnesium 1.1 L (1.6-2.3) mg/dL Total Bilirubin 8.7 H (0.2-1.3) mg/dL AST 155 H (17-59) U/L Alkaline Phosphatase 178 H (38-126) U/L Albumin 3.4 L (3.5-5.0) g/dL Microbiology - Last 24 Hours (Table) 04/05/20 13:58 Group A Strep Throat Culture - Final Throat
[2020-04-08] MEDS: HYDROcodone/APAP 5-325MG 1 EACH TAB PO PRN (23:08)
[2020-04-08] MEDS: POTASSIUM CHLORIDE ER 20 MEQ TAB.ER PO SCH (23:40)
[2020-04-09] MEDS: POTASSIUM CHLORIDE ER 20 MEQ TAB.ER PO SCH ×8 (01:02→10:07)
[2020-04-09] MEDS: 0.9% NACL WITH KCL 40 MEQ/L 1,000 ML IV SCH ×2 (02:14→09:00)
[2020-04-09 03:41] LABS: Basophils % (A) 1 %; Eosinophils # (A) 0.2 k/uL (0-0.7); Eosinophils % (A) 4 %; HCT 36.3 % (39.0-53.0); HGB 11.8 gm/dL (13.0-17.5); Lymphocytes # (A) 1.1 k/uL (1.0-4.8); Lymphocytes % (A) 20 %; MCH 33.3 pg (25.0-35.0); MCHC 32.5 g/dL (31.0-37.0); MCV 102.5 fL (80.0-100.0); Macrocytosis Slight; Mean Platelet Volume 11.1; Monocytes # (A) 0.5 k/uL (0-1.0); Monocytes % (A) 9 %; Neutrophils # (A) 3.5 k/uL (1.3-7.7); Neutrophils % (A) 65 %; RBC 3.55 m/uL (4.30-5.90); RDW 14.3 % (11.5-15.5); WBC 5.4 k/uL (3.8-10.6)
[2020-04-09 03:52] LABS: ALT 25 U/L (4-49); AST 143 U/L (17-59); African American GFR (CKD) >90 (>60 ml/min/1.73 sqM); Albumin 3.5 g/dL (3.5-5.0); Alkaline Phosphatase 171 U/L (38-126); Anion Gap 9 mmol/L; Blood Urea Nitrogen 8 mg/dL (9-20); Calcium 6.9 mg/dL (8.4-10.2); Carbon Dioxide 26 mmol/L (22-30); Chloride 106 mmol/L (98-107); Glucose 81 mg/dL (74-99); Magnesium 1.4 mg/dL (1.6-2.3); Non-African American GFR(CKD) >90 (>60 ml/min/1.73 sqM); Potassium 2.8 mmol/L (3.5-5.1); Sodium 141 mmol/L (137-145); Total Bilirubin 9.1 mg/dL (0.2-1.3)
[2020-04-09 04:12] LABS: Platelet Count 64 k/uL (150-450)
[2020-04-09] MEDS: AMPICILLIN-SULBACTAM 3 GM in SODIUM CHLORIDE 0.9% 100 ML IVPB SCH ×2 (06:16→14:22)
[2020-04-09] MEDS: HEPARIN SODIUM,PORCINE 5,000 UNIT/ML 1 ML VIAL SQ SCH (07:15)
[2020-04-09] MEDS: PANTOPRAZOLE 40 MG/10 ML VIAL IVP SCH (07:18)
[2020-04-09] MEDS: amLODIPine 5 MG TAB PO SCH (07:18)
[2020-04-09 08:11] VITALS: BP 157/85; PULSE 108; RESP 18; TEMP 99.9
[2020-04-09] MEDS: LORazepam 2 MG/ML INJ IV PRN (10:10)
[2020-04-09] MEDS: MAGNESIUM SULFATE-D5W PMX 1 GM in DEXTROSE/WATER 1 100ML.BAG IVPB SCH ×2 (10:37→12:10)
[2020-04-09] MEDS ORDERED: IV FLUID CONTINUATION 1,000 ML IV ONE (12:42)
[2020-04-09] MEDS ORDERED: PROPOFOL 10 MG/ML 20 ML VIAL IV ONE (12:44)
--- NOTE | 2020-04-09 12:55 | P.OP ---
Date of Procedure: 04/09/20 Preoperative Diagnosis: Colitis Postoperative Diagnosis: Mild inflammation of ascending and descending colon Procedure(s) Performed: Colonoscopy Anesthesia: MAC Surgeon: Lowell Quan Pathology: other (Right colon biopsy, sigmoid colon biopsy) Condition: stable Disposition: floor Description of Procedure: The patient's placed on the endoscopy table lateral position. He received IV sedation. Digital rectal exam was performed which revealed no abnormalities. Flexible colonoscope was then placed patient anus and passed throughout the entire colon. The ileocecal valve visualized. In the cecum there is some minimal inflammation. This was biopsied. The biopsy performed with a cold forcep. Scope was withdrawn remainder of the ascending colon appeared minimally inflamed. The transverse colon appeared normal. In the descending and; there is minimal inflammation of the mucosa the sigmoid colon was biopsied with cold forcep. The scope was then brought back the rectum and this appeared normal. Scope withdrawn for patient.
[2020-04-09] MEDS ORDERED: POTASSIUM CHLORIDE ER 20 MEQ TAB.ER PO STA (14:52)
[2020-04-09] MEDS ORDERED: MAGNESIUM OXIDE 400 MG TAB PO STA (14:52)
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
== END 2020-04-09 15:45 | disposition home or self-care (01) | DRG 391 ==
LOC: EC 12:32 → 4SSUR 18:54
PROVIDERS: ADMIT Hospitalist; ATTEND Hospitalist
PROC: 0DBN8ZX Excision of Sigmoid Colon, Via Natural or Artificial Opening Endoscopic, Diagnostic (ICD-10-PCS; principal; 2020-04-09 12:10)
PROC: 0DBH8ZX Excision of Cecum, Via Natural or Artificial Opening Endoscopic, Diagnostic (ICD-10-PCS; principal; 2020-04-09 12:10)
DX: K29.00 Acute gastritis without bleeding (principal); N17.0 Acute kidney failure with tubular necrosis; J98.11 Atelectasis; F10.239 Alcohol dependence with withdrawal, unspecified; F10.251 Alcohol dependence with alcohol-induced psychotic disorder with hallucinations; K76.0 Fatty (change of) liver, not elsewhere classified; Z20.828 Contact with and (suspected) exposure to other viral communicable diseases; E83.42 Hypomagnesemia; E87.6 Hypokalemia; K52.9 Noninfective gastroenteritis and colitis, unspecified; Y90.6 Blood alcohol level of 120-199 mg/100 ml; R94.31 Abnormal electrocardiogram [ECG] [EKG]; E66.9 Obesity, unspecified; Z68.38 Body mass index [BMI] 38.0-38.9, adult; F17.210 Nicotine dependence, cigarettes, uncomplicated; Z71.6 Tobacco abuse counseling; Z79.899 Other long term (current) drug therapy; Z86.718 Personal history of other venous thrombosis and embolism; Z87.442 Personal history of urinary calculi; Z90.01 Acquired absence of eye; Z97.0 Presence of artificial eye; Z90.49 Acquired absence of other specified parts of digestive tract; Z98.890 Other specified postprocedural states; Z87.828 Personal history of other (healed) physical injury and trauma
CPT/HCPCS: 36415; 45380; 71045; 71046; 73502; 74176; 76705; 80053; 80320; 81001; 82150; 82272; 83690; 83735; 84132; 85025; 85610; 85730; 87081; 87430; 88305; 93005; 96361; 96365; 96374; 96375; 99285

== ENCOUNTER 2020-09-24 09:07 | Inpatient (IN) | payer OTHER ==
[2020-09-24] MEDS ORDERED: SODIUM CHLORIDE 0.9% 2,000 ML IV STA (09:22)
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
[2020-09-24 10:06] LABS: Appearance,Urine Clear (Clear); Bilirubin,Urine 2+ (Negative); Blood,Urine Negative (Negative); Color,Urine Brown; Glucose,Urine (UA) Negative (Negative); Ketones,Urine Negative (Negative); Leukocyte Esterase,Urine Negative (Negative); Mucus,Urine Rare /hpf; Nitrite,Urine Negative (Negative); Protein,Urine 1+ (Negative); RBC,Urine <1 /hpf (0-5); Specific Gravity,Urine 1.021 (1.001-1.035); Squamous Epithelial Cell,Urine <1 /hpf (0-4); WBC,Urine 1 /hpf (0-5)
[2020-09-24 10:11] LABS: Basophils % (A) 1 %; Eosinophils # (A) 0.1 k/uL (0-0.7); Eosinophils % (A) 2 %; HCT 39.6 % (39.0-53.0); HGB 13.1 gm/dL (13.0-17.5); Lymphocytes # (A) 1.1 k/uL (1.0-4.8); Lymphocytes % (A) 18 %; MCV 94.1 fL (80.0-100.0); Mean Platelet Volume 9.8; Monocytes # (A) 0.4 k/uL (0-1.0); Monocytes % (A) 6 %; Neutrophils # (A) 4.7 k/uL (1.3-7.7); Neutrophils % (A) 73 %; RBC 4.21 m/uL (4.30-5.90); RDW 15.9 % (11.5-15.5); WBC 6.5 k/uL (3.8-10.6)
--- NOTE | 2020-09-24 10:14 | XR ---
EXAMINATION TYPE: XR chest 2V DATE OF EXAM: 09/24/2020 COMPARISON: Prior chest x-ray 04/06/2020 HISTORY: Fever, chest pain TECHNIQUE: Frontal and lateral views of the chest are obtained. FINDINGS: There is no focal air space opacity, pleural effusion, or pneumothorax seen. The cardiac silhouette size is within normal limits. The osseous structures are intact. IMPRESSION: No acute cardiopulmonary process.
[2020-09-24 10:20] LABS: ALT 66 U/L (4-49); AST 246 U/L (17-59); African American GFR (CKD) >90 (>60 ml/min/1.73 sqM); Albumin 3.6 g/dL (3.5-5.0); Alkaline Phosphatase 290 U/L (38-126); Amylase <30 U/L (30-110); Anion Gap 11 mmol/L; Blood Urea Nitrogen 5 mg/dL (9-20); Calcium 8.9 mg/dL (8.4-10.2); Carbon Dioxide 25 mmol/L (22-30); Chloride 99 mmol/L (98-107); Glucose 128 mg/dL (74-99); Lipase 61 U/L (23-300); Non-African American GFR(CKD) >90 (>60 ml/min/1.73 sqM); Platelet Count 71 k/uL (150-450); Potassium 2.9 mmol/L (3.5-5.1); Sodium 135 mmol/L (137-145); Total Bilirubin 7.3 mg/dL (0.2-1.3); Total Protein 7.3 g/dL (6.3-8.2)
--- NOTE | 2020-09-24 10:45 | CT ---
EXAMINATION TYPE: CT abdomen pelvis w con DATE OF EXAM: 09/24/2020 COMPARISON: April 06, 2020 HISTORY: Abd pain, Fever, Cough CT DLP: 1386.1 mGycm CONTRAST: CT scan of the abdomen and pelvis is performed without Oral Contrast and with IV Contrast, patient in jected with 100 mL of Isovue 300. FINDINGS: LUNG BASES-: No visible nodule. No infiltrate. LIVER/GB: There is gallbladder hydrops measuring 10.4 cm in length. There is evidence of a diffuse he terogenous enhancement throughout the liver with hepatomegaly. There is masslike enlargement involvin g the caudate lobe of the liver. Mass effect is noted upon the intrahepatic portion of the IVC. No de finite thrombus noted at this point in time. Correlate for possible Budd-Chiari syndrome. Ill-defined hypoattenuating lesion adjacent to the gallbladder within the left hepatic lobe medial segment measu res 3 cm. PANCREAS: No inflammation. No distinct mass. SPLEEN: There is evidence of splenomegaly with craniocaudal measurement of 16.6 cm. No lesion seen. ADRENALS: No nodule. No thickening. KIDNEYS/BLADDER: No hydronephrosis. No nephrolithiasis. No distinct renal mass. Urinary bladder g rossly unremarkable. BOWEL: There is evidence of ascites about the liver. Ascites is also seen within the pelvis. There is wall thickening involving the small bowel which may reflect hypoalbuminemia versus enteritis. GENITAL ORGANS: No gross abnormality. LYMPH NODES: No greater than 1cm abdominal or pelvic lymph nodes are appreciated. AORTA: No significant abnormality. OSSEOUS STRUCTURES: No significant abnormality is seen. OTHER: No significant additional abnormality is seen. IMPRESSION: 1. Hepatomegaly with diffuse abnormal attenuation throughout the liver. Severe enlargement of the cau date lobe resulting in mass effect upon the inferior vena cava without complete obstruction or thromb us. Correlate for resultant Budd-Chiari syndrome. 2. Hypoattenuating lesion adjacent to the liver is nonspecific. 3. Splenomegaly. 4. Ascites. 5. Bowel wall thickening is nonspecific.
[2020-09-24] MEDS ORDERED: ONDANSETRON 4 MG/2 ML VIAL IVP PRN (10:58)
[2020-09-24] MEDS ORDERED: HYDROmorphone 0.5 MG/0.5 ML SYRINGE IVP STA (10:58)
[2020-09-24] MEDS ORDERED: NALOXONE 0.4 MG/ML 1 ML VIAL IV PRN (10:58)
[2020-09-24] MEDS ORDERED: ONDANSETRON 4 MG/2 ML VIAL IVP STA (10:58)
[2020-09-24] MEDS ORDERED: POTASSIUM CHLORIDE ER 20 MEQ TAB.ER PO STA (11:03)
[2020-09-24] MEDS: SODIUM CHLORIDE 0.9% 1,000 ML IV SCH ×2 (11:35→22:01)
--- NOTE | 2020-09-24 15:01 | CONS ---
CONSULTATION DATE OF SERVICE: 09/24/2020 REASON FOR CONSULTATION: Elevated LFTs and COVID-19 positive. HISTORY OF PRESENT ILLNESS: The patient is a 40-year-old white male, came to the emergency room complaining of abdominal pain associated with nausea, vomiting, diarrhea for the last 2 weeks' duration, has been having about 2-3 loose bowel movements daily, intermittent episodes of nausea and vomiting once or twice a day. Abdominal pain is mostly diffuse. He came into the emergency room and villarreal virus PCR was reported as positive. The patient; however, denies any coughing, shortness of breath or chest pain. He thinks he was exposed to COVID at work. In the ER, he was noted to have elevated LFTs with bilirubin of 7.3. AST 246, ALT 66, alkaline phosphatase 290. On review of his medical records, patient was admitted to the hospital in April of 2020 for the same reason and was diagnosed with alcohol-related liver disease. He has history of heavy alcohol abuse, but patient states that he quit drinking in April of this year and since then has been doing intermittently. Last alcohol drink was about 2 weeks ago. PAST MEDICAL HISTORY: Heavy alcohol abuse. MEDICATIONS: At home, none. No known drug allergies. SOCIAL HISTORY: Chronic smoker. Alcohol use as mentioned above. PAST SURGICAL HISTORY: Appendectomy, facial reconstruction and lithotripsy. FAMILY HISTORY: Unremarkable. REVIEW OF SYSTEMS: CARDIOPULMONARY: He denies any chest pain or shortness of breath. : No dysuria or hematuria. MUSCULOSKELETAL: Unremarkable. SKIN: Unremarkable. ENDOCRINE: Unremarkable. PSYCHIATRIC: Unremarkable. NEUROLOGY: Unremarkable. ENT/VISION: Unremarkable. CONSTITUTIONAL: No recent weight loss. No fever, chills, night sweats. GI: As mentioned above. HEMATOLOGY: Unremarkable. PSYCHIATRIC: Unremarkable. PHYSICAL EXAMINATION: He appears comfortable. No apparent distress. Vital signs are stable. Blood pressure is 133/86, pulse rate 80, temperature 98. Physical examination as per the ER physician. Labs done this morning WBC 6.5, hemoglobin 13.1, MCV 94, platelets 71,000. T-bilirubin 7.3, AST 246, ALT 66, alkaline phosphatase 290. Amylase and lipase are normal. Villarreal virus PCR is positive. CT of the abdomen and pelvis done in the emergency room, did show evidence of hepatomegaly. There was diffuse heterogeneous enhancement throughout the liver with hepatomegaly. There was masslike enhancement enlargement involving the caudate lobe of the liver. Mass effect is noted upon the intrahepatic portion of the inferior vena cava. No definite thrombus noted at this time. Possibility of Budd- Chiari syndrome was suggested by the radiologist. Also there was a small hypoattenuating lesion just into the liver noted. Splenomegaly and small amount of ascites. IMPRESSION: 1. Elevated LFTs and jaundice in this patient with history of alcohol abuse of several years' duration. Had a similar hospitalization in April of this year. His biochemical parameatal is more consistent with acute alcoholic hepatitis. CT of the abdomen did show hepatomegaly and some enlargement of the caudate lobe of the liver with possible masslike effect on the inferior vena cava. This can be evaluated with an MRI of the liver to rule out liver pathology. 2. COVID-19 positive with no respiratory symptoms. 3. Mild diffuse abdominal pain secondary to alcoholic hepatitis. 4. Nausea, vomiting, diarrhea, possibly related to COVID infection, but other etiologies cannot be excluded. RECOMMENDATIONS: 1. Obtain hepatitis serologies for A, B and C. 2. Obtain C difficile toxin. 3. Repeat labs in the morning. 4. Will consider an MRI of the liver during this hospitalization to define the liver further. 5. Abstinence from alcohol. 6. Start him on a clear liquid diet and advance as tolerated. Will follow with you closely. Thank you for this consultation. MMODL / IJN: [id number] /
[2020-09-24] MEDS: PANTOPRAZOLE 40 MG/10 ML VIAL IVP SCH (16:31)
[2020-09-24] MEDS: amLODIPine 5 MG TAB PO SCH (16:32)
[2020-09-24] MEDS: HYDROmorphone 0.5 MG/0.5 ML SYRINGE IVP PRN ×2 (17:34→21:54)
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
[2020-09-24 21:15] LABS: Hepatitis A Antibody IgM Non-Reactive (Non-Reactive); Hepatitis B Core IgM Non-Reactive (Non-Reactive); Hepatitis B Surface Antigen Non-Reactive (Non-Reactive); Hepatitis C IgG Antibody Non-Reactive (Non-Reactive)
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
[2020-09-25 06:42] LABS: Basophils % (A) 1 %; Eosinophils # (A) 0.2 k/uL (0-0.7); Eosinophils % (A) 4 %; HCT 34.5 % (39.0-53.0); HGB 11.5 gm/dL (13.0-17.5); Lymphocytes % (A) 23 %; MCH 32.2 pg (25.0-35.0); MCHC 33.3 g/dL (31.0-37.0); MCV 96.7 fL (80.0-100.0); Mean Platelet Volume 9.9; Monocytes # (A) 0.2 k/uL (0-1.0); Monocytes % (A) 6 %; Neutrophils # (A) 2.7 k/uL (1.3-7.7); Neutrophils % (A) 64 %; Platelet Count 54 k/uL (150-450); RBC 3.57 m/uL (4.30-5.90); RDW 15.9 % (11.5-15.5); WBC 4.2 k/uL (3.8-10.6)
[2020-09-25] MEDS: SODIUM CHLORIDE 0.9% 1,000 ML IV SCH ×2 (07:36→18:53)
[2020-09-25] MEDS: HYDROmorphone 0.5 MG/0.5 ML SYRINGE IVP PRN ×3 (07:38→19:49)
[2020-09-25] MEDS: amLODIPine 5 MG TAB PO SCH (07:39)
[2020-09-25] MEDS: ENOXAPARIN 40 MG/0.4 ML SYRINGE SQ SCH (07:40)
[2020-09-25] MEDS: PANTOPRAZOLE 40 MG/10 ML VIAL IVP SCH (07:41)
[2020-09-25 09:31] LABS: African American GFR (CKD) 138.7 (60.0-200.0); Albumin 2.8 g/dL (3.80-4.90); Albumin/Globulin Ratio 1.12 (1.60-3.17); Anion Gap 7.4 mmol/L (4.00-12.00); BUN/Creat Ratio 8.57 Ratio (12.00-20.00); Calcium 7.8 mg/dL (8.7-10.3); Carbon Dioxide 24.6 mmol/L (21.6-31.8); Globulin 2.5 g/dL (1.6-3.3); Non-African American GFR(CKD) 119.7 (60.0-200.0); Potassium 3.2 mmol/L (3.5-5.5); Total Bilirubin 5.8 mg/dL (0.2-1.2); Total Protein 5.3 g/dL (6.2-8.2)
[2020-09-25 09:39] LABS: INR 1.4 (0.90-1.11); Prothrombin Time 14.7 sec (9.9-11.9)
[2020-09-25] MEDS ORDERED: Potassium Replacement Protocol 1 EACH MISC MISCELLANE PRN (11:18)
[2020-09-25] MEDS ORDERED: POTASSIUM CHLORIDE ER 20 MEQ TAB.ER PO STA (11:19)
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
[2020-09-25] MEDS ORDERED: ONDANSETRON 4 MG/2 ML VIAL IVP PRN (12:27)
[2020-09-25 13:41] VITALS: BMI 31.5
[2020-09-25] MEDS ORDERED: LORazepam 2 MG/ML INJ IV PRN ×3 (18:37)
[2020-09-26] MEDS: HYDROmorphone 0.5 MG/0.5 ML SYRINGE IVP PRN ×3 (00:27→12:45)
[2020-09-26] MEDS: SODIUM CHLORIDE 0.9% 1,000 ML IV SCH (00:42)
[2020-09-26] MEDS: PANTOPRAZOLE 40 MG/10 ML VIAL IVP SCH (07:09)
[2020-09-26] MEDS: ENOXAPARIN 40 MG/0.4 ML SYRINGE SQ SCH (07:10)
[2020-09-26] MEDS: amLODIPine 5 MG TAB PO SCH (07:10)
[2020-09-26 09:53] LABS: Basophils % (A) 0 %; Eosinophils # (A) 0.2 k/uL (0-0.7); Eosinophils % (A) 4 %; HCT 35.6 % (39.0-53.0); HGB 11.9 gm/dL (13.0-17.5); Lymphocytes # (A) 0.9 k/uL (1.0-4.8); Lymphocytes % (A) 21 %; MCH 32.6 pg (25.0-35.0); MCHC 33.4 g/dL (31.0-37.0); MCV 97.5 fL (80.0-100.0); Mean Platelet Volume 10.9; Monocytes # (A) 0.3 k/uL (0-1.0); Monocytes % (A) 7 %; Neutrophils % (A) 67 %; RBC 3.65 m/uL (4.30-5.90); RDW 15.5 % (11.5-15.5); WBC 4.4 k/uL (3.8-10.6)
[2020-09-26 09:56] LABS: Platelet Count 56 k/uL (150-450)
[2020-09-26 10:06] LABS: African American GFR (CKD) 138.7 (60.0-200.0); Albumin 2.9 g/dL (3.80-4.90); Albumin/Globulin Ratio 1.12 (1.60-3.17); Anion Gap 7.2 mmol/L (4.00-12.00); BUN/Creat Ratio 8.57 Ratio (12.00-20.00); Calcium 8.2 mg/dL (8.7-10.3); Carbon Dioxide 24.8 mmol/L (21.6-31.8); Globulin 2.6 g/dL (1.6-3.3); Non-African American GFR(CKD) 119.7 (60.0-200.0); Potassium 3.2 mmol/L (3.5-5.5); Total Bilirubin 6.5 mg/dL (0.2-1.2); Total Protein 5.5 g/dL (6.2-8.2)
--- NOTE | 2020-09-26 10:46 | PN ---
PROGRESS NOTE DATE OF SERVICE: September 26, 2020 Patient is a 40-year-old white male admitted to the hospital with nausea, vomiting, diarrhea, and was noted to have Covid 19 positive. He is doing much better. The nausea vomiting and diarrhea resolved on a regular diet, tolerating well. He was also noted to have elevated LFTs probably related to chronic alcoholic liver disease. Labs from this morning are still pending. He denies any new symptoms. Overall he is feeling much better. Abdominal pain has resolved. Nausea, vomiting has resolved, on a regular diet, tolerating well. PHYSICAL EXAMINATION: Vital signs are stable. Blood pressure 123/76, pulse rate 79, temperature 98.4. HEENT examination unremarkable. Conjunctivae pink. Sclerae anicteric. Oral cavity no lesions. Neck no JVD. CHEST: Clear to auscultation. HEART: Regular rate and rhythm. ABDOMEN: Soft, it was slightly tender in the epigastric area. Rest of the abdomen was benign. Extremities: No pedal edema. Neuro: He is alert and oriented x3. No focal deficits. LABS: From today are still not available. IMPRESSION: 1. Nausea, vomiting, diarrhea for the last 3 days duration, resolved. 2. Covid-19 positive but he denies any upper gastrointestinal/respiratory symptoms. 3. Elevated LFTs and jaundice all consistent with acute alcoholic hepatitis. The patient clinically doing better. 4. Abnormal CAT scan showing enlarged cardiac lobe of the liver, probably as a result of underlying cirrhosis of the liver, but no obvious mass lesions identified. RECOMMENDATIONS: 1. Continue symptomatic and supportive care. 2. Advance diet as tolerated. 3. Monitor LFTs closely. 4. The patient can be discharged home today with outpatient followup in 2 weeks. Thank you for this consultation. MMODL / IJN: [id number] /
[2020-09-26 11:05] VITALS: BP 147/82; PULSE 111; RESP 17; TEMP 98.1
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
== END 2020-09-26 13:52 | disposition home or self-care (01) | DRG 178 ==
LOC: EC 09:07 → 6NMEDSUR 11:03 → 4SSUR 14:32
PROVIDERS: ADMIT Internal Medicine; ATTEND Internal Medicine
DX: U07.1 COVID-19 (principal); E87.2 Acidosis; K70.11 Alcoholic hepatitis with ascites; I10 Essential (primary) hypertension; K74.60 Unspecified cirrhosis of liver; F10.10 Alcohol abuse, uncomplicated; F17.200 Nicotine dependence, unspecified, uncomplicated; E86.9 Volume depletion, unspecified; E87.6 Hypokalemia; D69.6 Thrombocytopenia, unspecified; Z97.0 Presence of artificial eye; Z90.01 Acquired absence of eye; Z87.442 Personal history of urinary calculi; Z86.718 Personal history of other venous thrombosis and embolism; Z83.3 Family history of diabetes mellitus; Z79.899 Other long term (current) drug therapy; Z90.49 Acquired absence of other specified parts of digestive tract; Z98.890 Other specified postprocedural states
CPT/HCPCS: 36415; 70200; 71046; 74177; 80053; 80074; 81001; 82150; 83605; 83690; 85025; 85610; 86140; 87045; 87046; 87324; 87635; 96361; 96374; 96375; 99285

== ENCOUNTER 2020-09-30 07:50 | Inpatient (IN) | payer OTHER ==
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
[2020-09-30] MEDS ORDERED: ONDANSETRON 4 MG/2 ML VIAL IVP STA (08:14)
[2020-09-30] MEDS ORDERED: MORPHINE SULFATE 4 MG/ML SYRINGE IV STA (08:14)
[2020-09-30 09:04] LABS: ALT 54 U/L (4-49); African American GFR (CKD) >90 (>60 ml/min/1.73 sqM); Albumin 3.6 g/dL (3.5-5.0); Anion Gap 12 mmol/L; Blood Urea Nitrogen 8 mg/dL (9-20); Calcium 8.7 mg/dL (8.4-10.2); Carbon Dioxide 22 mmol/L (22-30); Chloride 102 mmol/L (98-107); Glucose 136 mg/dL (74-99); Lipase 116 U/L (23-300); Non-African American GFR(CKD) >90 (>60 ml/min/1.73 sqM); Sodium 136 mmol/L (137-145); Total Bilirubin 10.9 mg/dL (0.2-1.3); Total Protein 7.3 g/dL (6.3-8.2)
[2020-09-30 09:09] LABS: Anisocytosis Slight; Basophils # (A) 0.1 k/uL (0-0.2); Basophils % (A) 1 %; Eosinophils # (A) 0.2 k/uL (0-0.7); Eosinophils % (A) 3 %; HCT 39.9 % (39.0-53.0); Lymphocytes # (A) 1.2 k/uL (1.0-4.8); Lymphocytes % (A) 13 %; MCH 31.4 pg (25.0-35.0); MCHC 32.5 g/dL (31.0-37.0); MCV 96.7 fL (80.0-100.0); Mean Platelet Volume 10.4; Monocytes # (A) 0.6 k/uL (0-1.0); Monocytes % (A) 6 %; Neutrophils # (A) 7.6 k/uL (1.3-7.7); Neutrophils % (A) 77 %; RBC 4.13 m/uL (4.30-5.90); RDW 16.5 % (11.5-15.5); WBC 9.9 k/uL (3.8-10.6)
[2020-09-30 09:22] LABS: Platelet Count 108 k/uL (150-450)
--- NOTE | 2020-09-30 09:22 | CT ---
EXAMINATION TYPE: CT abdomen pelvis w con DATE OF EXAM: 09/30/2020 COMPARISON: 08/24/2020 HISTORY: Abd pain CT DLP: 1573.4 mGycm CONTRAST: CT scan of the abdomen and pelvis is performed without Oral Contrast and with IV Contrast, patient in jected with 100 mL of Isovue 300. FINDINGS: LUNG BASES-: No visible nodule. No infiltrate. Small bilateral pleural effusions are now visible. LIVER/GB: Within gallbladder hydrops which has not changed significantly since the prior study. Dif fuse hepatic heterogeneity persists. Persistent masslike enlargement of the caudate lobe imparting ma ss effect on the intrahepatic portion of the IVC. Correlate for Budd-Chiari syndrome. There may be ti ny filling defects within right and left hepatic portal venous branches seen on axial image 26 marked with an arrow as well as image 25 also marked with an arrow. Hypoattenuating lesion adjacent to the gallbladder fossa persists and measures approximately 3.7 cm and is nonspecific. Biliary tree is of normal caliber. PANCREAS: No inflammation. No distinct mass. SPLEEN: There is persistent splenomegaly. No lesion seen. ADRENALS: No nodule. No thickening. KIDNEYS/BLADDER: No hydronephrosis. No nephrolithiasis. No distinct renal mass. Urinary bladder g rossly unremarkable. BOWEL: There is wall thickening of the small and large bowel. Progressive since prior study which may be related to hypoalbuminemia. Underlying enterocolitis is difficult to exclude. GENITAL ORGANS: No gross abnormality. LYMPH NODES: No greater than 1cm abdominal or pelvic lymph nodes are appreciated. AORTA: No significant abnormality. OSSEOUS STRUCTURES: No significant abnormality is seen. OTHER: There is increasing ascites about the liver, perisplenic regions as well as a interloop fluid and fluid extending into the pelvis. Perihepatic varices noted with extension into the left anterior abdominal wall. IMPRESSION: 1. Persistent hepatosplenomegaly with diffuse heterogeneity noted of the liver. Masslike enlargement of the caudate lobe with mass effect upon the hepatic inferior vena cava. Correlate for Budd-Chiari s yndrome. As noted there may be tiny filling defects within portal vein branches as outlined above. 2. Increasing ascites. Small bilateral pleural effusions. 3. Persistent gallbladder hydrops. Correlate for acalculus cholecystitis. 4. Correlate for enterocolitis. 5. Stable hepatic lesion adjacent to the gallbladder fossa is nonspecific.
[2020-09-30 09:35] LABS: AST 171 U/L (17-59); Alkaline Phosphatase 227 U/L (38-126); Potassium 3.3 mmol/L (3.5-5.1)
--- NOTE | 2020-09-30 10:20 | XR ---
EXAMINATION TYPE: XR chest 1V portable DATE OF EXAM: 09/30/2020 COMPARISON: 09/24/2020 HISTORY: cough, hypoxia, shortness of breath TECHNIQUE: Single frontal view of the chest is obtained. FINDINGS: Mild patchy density right medial lung base may reflect developing pneumonia. The cardiac silhouette size is within normal limits. The osseous structures are intact. IMPRESSION: 1. Mild patchy density right medial lung base may reflect developing pneumonia.
[2020-09-30] MEDS ORDERED: NALOXONE 0.4 MG/ML 1 ML VIAL IV PRN (12:35)
[2020-09-30] MEDS: MORPHINE SULFATE 4 MG/ML SYRINGE IV PRN ×3 (12:45→21:24)
[2020-09-30] MEDS ORDERED: HEPARIN SOD,PORK IN 0.45% NACL 25,000 UNIT in 0.45% NACL 1 250ML.BAG IV SCH (13:15)
[2020-09-30] MEDS ORDERED: HEPARIN SODIUM,PORCINE 5,000 UNIT/ML 1 ML VIAL IV PRN (13:15)
--- NOTE | 2020-09-30 14:26 | US ---
EXAMINATION TYPE: US portal vein DATE OF EXAM: 09/30/2020 COMPARISON: CT earlier today and older CTs CLINICAL HISTORY: portal vein evaluation. Portal vein evaluation for clotting/flow. Hx appendectomy. EXAM MEASUREMENTS: -Limited due to patient body habitus, gas, and movement. Liver Length: 20.01 cm. Gallbladder Wall: 0.41 cm. CBD: 0.52 cm. Right Kidney: 12.9 x 5.9 x 6.0 cm. ANATOMY: Pancreas: Limited visibility. Liver: Appears enlarged and heterogeneous. Appears to have a coarse echotexture. Fluid seen adjacent to the liver. Color flow patency within the portal vein: Possible color defect is seen in segment of main dick l vein. Exam is limited, but difficulty showing wall to wall color flow in segment of MPV. MPV measur es 12.7 mm (upper limits of normal). Left portal vein seen. Right portal vein not seen. Portal Vein Flow: Hepatopetal. Flow appears to be toward the liver. Gallbladder: Wall appears thickened. Hypoechoic material seen measurin.3 x 3.3 x 1.4 cm. Fold se en. measures 9.71 cm in length. Evidence for sonographic Pereira's sign: Patient felt pain while scanning RUQ. CBD: Appears wnl Right Kidney: Appears slightly enlarged versus upper limits of normal. No hydronephrosis or masses s een. Ascites noted? Fluid seen in RUQ, LUQ, and LLQ. Pancreas suboptimally seen due to body habitus. Visualized liver is markedly heterogeneously hyperech oic limiting evaluation for focal masses. Small amount of ascites seen along the inferior right hepat ic lobe. Lobulated contour. Right kidney shows no hydronephrosis. Gallbladder has distended margins a nd is dilated and is not completely anechoic, suspect small stones and/or sludge. Gallbladder wall is mildly thickened at 4 mm with surrounding ascites. Positive sonographic Pereira's sign. No intrahepat ic or extrahepatic biliary dilatation. Satisfactory blood flow in main portal vein correlates with CT earlier today. IMPRESSION: No main portal vein thrombus. Persistent marked heterogeneity of the liver. Marked caudat e lobe hypertrophy on CT. Patent draining hepatic veins noted on recent CT. Finding suspicious for he patocellular disease/hepatitis on background cirrhosis/fatty infiltration. Nonspecific gallbladder fi ndings. Patent nondilated main portal vein seen better on recent CT. Patent draining hepatic veins on recent CT.
[2020-09-30 16:16] LABS: INR 1.8 (<1.2); Partial Thromboplastin Time 23.3 sec (22.0-30.0); Prothrombin Time 17.3 sec (9.0-12.0)
[2020-09-30] MEDS ORDERED: Potassium Replacement Protocol 1 EACH MISC MISCELLANE PRN (16:54)
[2020-09-30] MEDS ORDERED: Magnesium Replacement Protocol 1 EACH MISC MISCELLANE PRN (16:54)
[2020-09-30] MEDS: NICOTINE 14MG/24HR PATCH TRANSDERM SCH (17:22)
[2020-09-30] MEDS: ONDANSETRON 4 MG/2 ML VIAL IVP PRN (17:22)
[2020-09-30 17:38] LABS: C Reactive Protein 31.2 mg/L (<10.0)
[2020-09-30 21:12] LABS: Appearance,Urine Clear (Clear); Bilirubin,Urine 2+ (Negative); Blood,Urine Trace (Negative); Color,Urine Dark Yellow; Glucose,Urine (UA) Negative (Negative); Ketones,Urine Negative (Negative); Leukocyte Esterase,Urine Negative (Negative); Mucus,Urine Rare /hpf; Nitrite,Urine Negative (Negative); Protein,Urine Trace (Negative); RBC,Urine 11 /hpf (0-5); Specific Gravity,Urine >1.050 (1.001-1.035); Squamous Epithelial Cell,Urine <1 /hpf (0-4); WBC,Urine 1 /hpf (0-5)
[2020-09-30] MEDS: PANTOPRAZOLE 40 MG/10 ML VIAL IVP SCH (21:26)
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
[2020-09-30 23:41] LABS: Hepatitis A Antibody IgM Non-Reactive (Non-Reactive); Hepatitis B Core IgM Non-Reactive (Non-Reactive); Hepatitis B Surface Antigen Non-Reactive (Non-Reactive); Hepatitis C IgG Antibody Non-Reactive (Non-Reactive); Procalcitonin 0.23 ng/mL (0.02-0.09)
[2020-10-01] MEDS: methylPREDNISolone SOD SUCCI 125 MG/2 ML VIAL IV SCH ×5 (00:23→23:45)
[2020-10-01] MEDS: MORPHINE SULFATE 4 MG/ML SYRINGE IV PRN ×6 (01:07→22:38)
[2020-10-01] MEDS: ENOXAPARIN 40 MG/0.4 ML SYRINGE SQ SCH (08:31)
[2020-10-01] MEDS: PANTOPRAZOLE 40 MG/10 ML VIAL IVP SCH ×2 (08:31→20:18)
[2020-10-01] MEDS: NICOTINE 14MG/24HR PATCH TRANSDERM SCH (08:31)
[2020-10-01] MEDS: ZINC SULFATE 220 MG CAP PO SCH (08:31)
[2020-10-01 12:12] LABS: Anisocytosis Slight; Basophils % (A) 0 %; Eosinophils % (A) 0 %; HCT 41.4 % (39.0-53.0); HGB 14.1 gm/dL (13.0-17.5); Lymphocytes # (A) 0.9 k/uL (1.0-4.8); Lymphocytes % (A) 8 %; MCH 33.4 pg (25.0-35.0); MCHC 34.1 g/dL (31.0-37.0); MCV 97.8 fL (80.0-100.0); Macrocytosis Slight; Mean Platelet Volume 9.6; Monocytes # (A) 0.4 k/uL (0-1.0); Monocytes % (A) 3 %; Neutrophils # (A) 10.5 k/uL (1.3-7.7); Neutrophils % (A) 88 %; Platelet Count 114 k/uL (150-450); RBC 4.24 m/uL (4.30-5.90); RDW 16.1 % (11.5-15.5); WBC 11.9 k/uL (3.8-10.6)
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
[2020-10-01] MEDS: MULTIVITAMINS, THERA 1 EACH TAB PO SCH (12:53)
[2020-10-01 13:20] LABS: D-Dimer 9.44 mg/L FEU (<0.60)
[2020-10-01 19:14] LABS: African American GFR (CKD) 125.1 (60.0-200.0); Albumin 3.7 g/dL (3.80-4.90); Albumin/Globulin Ratio 1.09 (1.60-3.17); Anion Gap 12.4 mmol/L (4.00-12.00); BUN/Creat Ratio 13.33 Ratio (12.00-20.00); C Reactive Protein 4.3 mg/dL (0.0-0.8); Carbon Dioxide 23.6 mmol/L (21.6-31.8); Globulin 3.4 g/dL (1.6-3.3); Total Bilirubin 12.6 mg/dL (0.3-1.2); Total Protein 7.1 g/dL (6.2-8.2)
[2020-10-01] MEDS ORDERED: POTASSIUM CHLORIDE ER 20 MEQ TAB.ER PO STA (19:30)
--- NOTE | 2020-10-01 19:59 | P.PN ---
Subjective Progress Note Date: 10/01/20 This is a 40-year-old male who was recently admitted with severe abdominal discomfort with nausea and vomiting and the inability to keep anything down. Patient was also found to have Covid 19. Multiple medical consultations following including hematology and infectious disease. Patient is maintained on IV steroids alonge with IV antibiotics in the form of Ceftriaxone at this time. D dimer continues to be elevated and patient is maintained on Lovenox. Potassium found to be 3.0 and being replaced. Will repeat labs. Patient continues to have shortness of breath and abdominal discomfort but states he is able to tolerate diet. Discussed with patient about increasing activity as tolerated. Patient has been lying in the bed for most of the day. Review of systems: Constitutional: Reports fatigue and weakness Cardiovascular: No reports of chest pain or palpitations Respiratory: Reports of shortness of breath and cough GI: Reports occasional nausea, no reports of vomiting, or diarrhea : No reports of dysuria or retention Neurovascular: Reports weakness but no reports of numbness All medications have been reviewed Active Medications Enoxaparin Sodium (Enoxaparin 40 Mg/0.4 Ml Syringe) 40 mg SQ DAILY [facility] Last Admin: 10/01/20 08:31 Dose: 40 mg Documented by: Ceftriaxone Sodium 1 gm/ (Sodium Chloride) 50 mls @ 100 mls/hr IVPB Q24H [facility] Last Admin: 10/01/20 00:22 Dose: 100 mls/hr Documented by: Methylprednisolone Sodium Succinate (Methylprednisolone Sod Succi 125 Mg/2 Ml Vial) 60 mg IV Q6HR [facility] Last Admin: 10/01/20 12:53 Dose: 60 mg Documented by: Miscellaneous Information (Magnesium Replacement Protocol 1 Each Misc) 1 each MISCELLANE DAILY PRN; Protocol PRN Reason: Per Protocol Miscellaneous Information (Potassium Replacement Protocol 1 Each Misc) 1 each MISCELLANE DAILY PRN; Protocol PRN Reason: Per Protocol Morphine Sulfate (Morphine Sulfate 4 Mg/Ml Syringe) 4 mg IV Q4HR PRN PRN Reason: Severe Pain Last Admin: 10/01/20 14:28 Dose: 4 mg Documented by: Multivitamins (Multivitamins, Thera 1 Each Tab) 1 each PO DAILY@1200 [facility] Last Admin: 10/01/20 12:53 Dose: 1 each Documented by: Naloxone HCl (Naloxone 0.4 Mg/Ml 1 Ml Vial) 0.2 mg IV Q2M PRN PRN Reason: Opioid Reversal Nicotine (Nicotine 14mg/24hr Patch) 1 patch TRANSDERM DAILY [facility] Last Admin: 10/01/20 08:31 Dose: 1 patch Documented by: Ondansetron HCl (Ondansetron 4 Mg/2 Ml Vial) 4 mg IVP Q6HR PRN PRN Reason: Nausea And Vomiting Last Admin: 09/30/20 17:22 Dose: 4 mg Documented by: Pantoprazole Sodium (Pantoprazole 40 Mg/10 Ml Vial) 40 mg IVP BID [facility] Last Admin: 10/01/20 08:31 Dose: 40 mg Documented by: Zinc Sulfate (Zinc Sulfate 220 Mg Cap) 220 mg PO DAILY [facility] Last Admin: 10/01/20 08:31 Dose: 220 mg Documented by: Objective - Vital Signs Vital signs: Vital Signs Temp 98.2 F 10/01/20 13:15 Pulse 101 H 10/01/20 14:32 Resp 18 10/01/20 13:15 BP 153/85 10/01/20 13:15 Pulse Ox 95 10/01/20 14:32 Intake & Output 09/30/20 10/01/20 10/01/20 18:59 06:59 18:59 Weight 99.79 kg Other: Voiding Method Toilet Toilet # Voids 1 - Exam Gen: This is a 40-year-old male lying in bed, lethargic although arousable, well-developed, well-nourished. Temp is 98.2F, pulse is 101, respirations are 18, blood pressure is 153/85, oxygen saturation is 95% on room air. HEENT: Head is atraumatic, normocephalic. Pupils equal, round. Sclerae is anicteric. NECK: Supple. No JVD. No lymphadenopathy. No thyromegaly. LUNGS: Diminished breath sounds bilaterally with some scattered rhonchi and crackles noted. X-ray wheezing noted on exam. No intercostal retractions. HEART: S1, S2 are muffled. ABDOMEN: Soft. Bowel sounds are present. No masses. No tenderness. EXTREMITIES: No pedal edema. No calf tenderness. NEUROLOGICAL: Patient is lethargic although arousable, alert and oriented x3. Cranial nerves 2 through 12 are grossly intact. - Labs CBC & Chem 7: 10/01/20 11:55 10/01/20 11:55 Labs: Abnormal Lab Results - Last 24 Hours (Table) 09/30/20 09/30/20 09/30/20 Range/Units 08:19 08:19 08:19 WBC (3.8-10.6) k/uL RBC (4.30-5.90) m/uL RDW (11.5-15.5) % Plt Count (150-450) k/uL Neutrophils # (1.3-7.7) k/uL Lymphocytes # (1.0-4.8) k/uL ESR 18 H (0-15) mm/hr PT (9.0-12.0) sec INR (<1.2) D-Dimer (<0.60) mg/L FEU Lactate Dehydrogenase 917 H (313-618) U/L C-Reactive Protein 31.2 H (<10.0) mg/L Procalcitonin 0.23 H (0.02-0.09) ng/mL Ur Specific [place] (1.001-1.035) Urine Protein (Negative) Urine Blood (Negative) Urine Bilirubin (Negative) Urine RBC (0-5) /hpf Urine Mucus (None) /hpf 09/30/20 09/30/20 09/30/20 Range/Units 15:48 15:48 17:21 WBC (3.8-10.6) k/uL RBC (4.30-5.90) m/uL RDW (11.5-15.5) % Plt Count (150-450) k/uL Neutrophils # (1.3-7.7) k/uL Lymphocytes # (1.0-4.8) k/uL ESR (0-15) mm/hr PT 17.3 H (9.0-12.0) sec INR 1.8 H (<1.2) D-Dimer 7.86 H (<0.60) mg/L FEU Lactate Dehydrogenase (313-618) U/L C-Reactive Protein (<10.0) mg/L Procalcitonin (0.02-0.09) ng/mL Ur Specific [place] >1.050 H (1.001-1.035) Urine Protein Trace H (Negative) Urine Blood Trace H (Negative) Urine Bilirubin 2+ H (Negative) Urine RBC 11 H (0-5) /hpf Urine Mucus Rare H (None) /hpf 10/01/20 10/01/20 Range/Units 11:55 11:55 WBC 11.9 H (3.8-10.6) k/uL RBC 4.24 L (4.30-5.90) m/uL RDW 16.1 H (11.5-15.5) % Plt Count 114 L (150-450) k/uL Neutrophils # 10.5 H (1.3-7.7) k/uL Lymphocytes # 0.9 L (1.0-4.8) k/uL ESR (0-15) mm/hr PT (9.0-12.0) sec INR (<1.2) D-Dimer 9.44 H (<0.60) mg/L FEU Lactate Dehydrogenase (313-618) U/L C-Reactive Protein (<10.0) mg/L Procalcitonin (0.02-0.09) ng/mL Ur Specific [place] (1.001-1.035) Urine Protein (Negative) Urine Blood (Negative) Urine Bilirubin (Negative) Urine RBC (0-5) /hpf Urine Mucus (None) /hpf Assessment and Plan Assessment: Abdominal pain with hepatosplenomegaly for evaluation Acute Covid 19 infection with possible pneumonia with possible hypoxic respiratory failure with possible sepsis secondary to Covid 19 Hyponatremia Hypokalemia Enlarged caudate lobe Possible portal vein thrombosis, ruled out Elevated AST, ALT Elevated bilirubin Mild coagulopathy secondary to liver disease Thrombocytopenia history of EtOH History of nicotine dependence Obesity with a BMI of 31.6 history of DVT Hypertension History of facial reconstruction Full code Recommendations and discussion: Recommend to continue current medications, management, and symptomatic treatment. Awaiting GI consult. Continue with isolation precautions for Covid 19 infection. Multiple medical consultations following. Due to multiple complex medical issues, prognosis is guarded. Will continue to monitor vital signs and labs closely and repeat labs. Further recommendations to follow.
[2020-10-01 23:03] LABS: INR 1.54 (0.90-1.11); Prothrombin Time 16.1 sec (9.9-11.9)
--- NOTE | 2020-10-01 23:19 | PN ---
PROGRESS NOTE DATE OF SERVICE: 10/01/2020 REASON FOR FOLLOWUP: 1. Covid -19. 2. Question of cholecystitis. INTERVAL HISTORY: The patient is currently afebrile. The patient is feeling better. Breathing comfortably on room air. Denies having chest pain. Abdominal pain in the right upper quadrant pain. No worsening nausea but no vomiting and no diarrhea. PHYSICAL EXAMINATION: Blood pressure 151/87, pulse of 110. Temperature 98.2. He is 95% on room air. General description: The patient is a middle-aged male lying in bed in no distress. Respiratory system: Unlabored breathing, decreased breath sounds in the bases. No wheeze. HEART: S1, S2. Regular rate and rhythm. ABDOMEN: Soft, no tenderness. LABS: Hepatitis panel is 92. White count 11.9. Liver enzymes still elevated. DIAGNOSTIC IMPRESSION AND PLAN: 1. The patient admitted to the hospital with abdominal pain in this patient who did have hepatomegaly admission and there was question of cholecystitis. Patient covered with Rocephin. Waiting for the GI and oncology recommendation. 2. Patient with recent positive Covid testing. X-ray showed no significant pneumonia. Patient is currently on Lovenox, dexamethasone and zinc that will continue and seems to have shown overall improvement. Not requiring any supplemental oxygen. Continue supportive care. MMODL / IJN: [id number] /
[2020-10-02] MEDS ORDERED: RX INFO: IV CONTRAST WAS GIVEN 1 EACH MISC MISCELLANE PRN (01:03)
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
[2020-10-02] MEDS: MORPHINE SULFATE 4 MG/ML SYRINGE IV PRN ×5 (02:43→20:57)
[2020-10-02] MEDS: methylPREDNISolone SOD SUCCI 125 MG/2 ML VIAL IV SCH ×4 (05:25→23:22)
[2020-10-02 07:46] LABS: INR 1.6 (<1.2); Partial Thromboplastin Time 26.5 sec (22.0-30.0)
[2020-10-02 08:01] LABS: Anisocytosis Slight; Basophils % (A) 0 %; Eosinophils % (A) 0 %; HCT 36.7 % (39.0-53.0); HGB 11.9 gm/dL (13.0-17.5); Lymphocytes # (A) 0.8 k/uL (1.0-4.8); Lymphocytes % (A) 8 %; MCH 31.8 pg (25.0-35.0); MCHC 32.5 g/dL (31.0-37.0); MCV 97.9 fL (80.0-100.0); Macrocytosis Slight; Mean Platelet Volume 9.7; Monocytes # (A) 0.4 k/uL (0-1.0); Monocytes % (A) 3 %; Neutrophils # (A) 9.2 k/uL (1.3-7.7); Neutrophils % (A) 88 %; Platelet Count 107 k/uL (150-450); RBC 3.75 m/uL (4.30-5.90); RDW 16.8 % (11.5-15.5); WBC 10.5 k/uL (3.8-10.6)
[2020-10-02] MEDS: PANTOPRAZOLE 40 MG/10 ML VIAL IVP SCH ×2 (08:59→20:58)
[2020-10-02] MEDS: NICOTINE 14MG/24HR PATCH TRANSDERM SCH (08:59)
[2020-10-02] MEDS: ZINC SULFATE 220 MG CAP PO SCH (08:59)
[2020-10-02] MEDS: ENOXAPARIN 40 MG/0.4 ML SYRINGE SQ SCH (08:59)
--- NOTE | 2020-10-02 09:28 | CT ---
EXAMINATION TYPE: CT chest w con DATE OF EXAM: 10/02/2020 COMPARISON: Chest x-ray 2 days ago and older x-rays. HISTORY: Shortness of breath and pain with inspiration. CT DLP: 471.6 mGycm. Automated Exposure Control for Dose Reduction was Utilized. TECHNIQUE: CT scan of the thorax is performed following with IV Contrast, patient injected with 100 mL of Isovue 300. FINDINGS: LUNGS: Multifocal areas of groundglass opacity in the upper lungs greatest in the periphery left slig htly more prominent than right. There is small to tiny left pleural effusion. There is associated lef t basilar compressive atelectasis. There is left mid lung linear atelectasis. There is mild to modera te right basilar linear atelectasis and/or Limited consolidation with slightly more thickened rectang ular opacity noted. No pneumothorax seen bilaterally. Slightly more prominent elevated right hemidiap hragm due to superior periHepatic ascites MEDIASTINUM: There are no greater than 1 cm hilar or mediastinal lymph nodes. No cardiomegaly or pe ricardial effusion is seen. OTHER: Small degree of bilateral subareolar gynecomastia. Heterogeneous hypodense appearance to liver with caudate lobe hypertrophy along with splenomegaly and upper abdominal ascites all redemonstrated . Recanalized umbilical vein partially seen on current study. IMPRESSION: Persistent cirrhosis with underlying portal venous hypertension. New small to tiny left p leural effusion. Slightly more prominent right basilar atelectasis and/or infiltrate. Developing bila teral left greater than right upper lung multifocal edema and/or infiltrates. Correlate clinically.
[2020-10-02] MEDS: MULTIVITAMINS, THERA 1 EACH TAB PO SCH (12:58)
[2020-10-02 13:58] LABS: African American GFR (CKD) 138.7 (60.0-200.0); Albumin 3.1 g/dL (3.80-4.90); Albumin/Globulin Ratio 1.07 (1.60-3.17); Anion Gap 9.4 mmol/L (4.00-12.00); BUN/Creat Ratio 21.43 Ratio (12.00-20.00); Calcium 8.6 mg/dL (8.7-10.3); Carbon Dioxide 24.6 mmol/L (21.6-31.8); Globulin 2.9 g/dL (1.6-3.3); Non-African American GFR(CKD) 119.7 (60.0-200.0); Potassium 3.4 mmol/L (3.5-5.5); Total Bilirubin 9.1 mg/dL (0.2-1.2)
[2020-10-02] MEDS: ONDANSETRON 4 MG/2 ML VIAL IVP PRN (16:57)
[2020-10-02] MEDS ORDERED: Potassium Replacement Protocol 1 EACH MISC MISCELLANE PRN (17:18)
[2020-10-02] MEDS: POTASSIUM CHLORIDE ER 20 MEQ TAB.ER PO SCH ×4 (17:40→23:22)
--- NOTE | 2020-10-02 22:37 | PN ---
PROGRESS NOTE DATE OF SERVICE: 10/02/2020 This 40-year-old woman was admitted with severe abdominal discomfort also has some nausea. The patient had hepatosplenomegaly. Patient also had features of cirrhosis of the liver apparently even though the patient not reporting alcohol intake for the past few months. Acute Covid 19 infection with with possible pneumonia is also suspected with acute hypoxic respiratory failure. CT scan of the chest done today, which I reviewed personally, which showed significant bilateral patchy infiltrates, suggestive of Covid-19 pneumonia. The patient also seen by Dr. Marin at this time. The patient being closely monitored. PAST MEDICAL HISTORY: Past medical history reviewed. REVIEW OF SYSTEM: Cardiovascular: No angina or palpitations. Respiratory: As mentioned earlier. GI: As mentioned earlier. NERVOUS SYSTEM: No numbness or weakness. CURRENT MEDICATIONS: Reviewed and include: Rocephin, Lovenox. Solu-Medrol, magnesium. Doses reviewed. PHYSICAL EXAMINATION: The patient is alert and oriented times three. Pulse is 106. Blood pressure 150/78. Respirations 16. Temperature 97.8, pulse ox 93% on room air. HEENT: Conjunctivae normal. NECK: No JVD. CARDIOVASCULAR: S1, S2 muffled. RESPIRATIONS: Breath sounds diminished in the bases. Bilateral scattered rhonchi and crackles. ABDOMEN: Soft, nontender. LEGS are no edema, no swelling. NERVOUS SYSTEM: No focal deficits. LABS: WBC 10.2, hemoglobin 11.9. The platelets are 107. Otherwise, total bilirubin is 9.1, AST is 154, ALT 61, and C-reactive protein was 4.3 and LDH was 476 and D-dimer was 1.86 and 9.44. INR is 1.6. ASSESSMENT: 1. Abdominal pain, hepatosplenomegaly for evaluation possible chronic liver disease. 2. Acute Covid-19 infection with bilateral pneumonia. 3. Elevated D-dimer. 4. Possible sepsis secondary to Covid-19. 5. Hyponatremia. 6. Hypokalemia. 7. Enlarged caudate lobe. 8. Possible portal vein thrombosis ruled out. 9. Elevated AST/ALT. 10.Elevated bilirubin. 11.Mild coagulopathy secondary to liver disease. 12.Thrombocytopenia. 13.History of EtOH. 14.History of nicotine dependence. 15.Obesity with body mass index 31.6. 16.History of deep vein thrombosis. 17.Hypertension. 18.History of facial reconstruction. 19.FULL CODE. RECOMMENDATIONS AND DISCUSSION: Recommend to continue current medications, management and symptomatic treatment. We will follow the patient closely with Dr. Marin for possible Remdesivir. Otherwise, prognosis guarded because of multiple complex medical issues. Further recommendations to follow. D-dimer is elevated to 9.44, which is significantly high. Continue current medications. Further recommendations to follow. MMODL / IJN: [id number] /
--- NOTE | 2020-10-03 01:04 | PN ---
PROGRESS NOTE DATE OF SERVICE: 10/02/2020 REASON FOR FOLLOWUP: COVID-19 infection and possible cholecystitis. INTERVAL HISTORY: The patient at time of evaluation this evening was afebrile. The patient is feeling much better. He is breathing comfortably currently on room air and saturating 97%. Denies having any chest pain. No nausea, vomiting. Abdominal pain has improved. No diarrhea. PHYSICAL EXAMINATION: Blood pressure 125/70 with pulse 100. Temperature 98.1. He is 97% on room air. General description: The patient is a middle-aged male lying in bed in no distress. Respiratory system: Unlabored breathing, decreased intensity of breath sounds. Heart S1, S2. Regular rate and rhythm. ABDOMEN: Soft, no tenderness. LABS: Hemoglobin 11.9, white count 10.5, BUN of 15, creatinine 0.7. Liver enzymes mildly improved. DIAGNOSTIC IMPRESSION AND PLAN: 1. Patient with acute COVID-19 infection in this patient currently with no fever and is sating 97% on room air. The patient did have a CT of the chest which did show small to tiny left pleural effusion and bibasilar atelectasis and developed bilateral right lung multifocal edema or infiltrate. However in view of no hypoxemia and the patient overall feeling better, care was discussed with the pharmacist. He does not qualify for Remdesivir at this point. We will continue with support remain of the Solu-Medrol, Lovenox and zinc sulfate. 2. Patient with possible concern for cholecystitis or cholangitis, covered with Rocephin 1 g daily to continue and monitor clinical course closely. MMODL / IJN: [id number] /
[2020-10-03] MEDS: MORPHINE SULFATE 4 MG/ML SYRINGE IV PRN ×6 (01:10→22:01)
[2020-10-03] MEDS: methylPREDNISolone SOD SUCCI 125 MG/2 ML VIAL IV SCH ×4 (05:05→23:44)
[2020-10-03 05:42] LABS: Anisocytosis Slight; Basophils % (A) 0 %; Eosinophils % (A) 0 %; HCT 34.4 % (39.0-53.0); HGB 11.2 gm/dL (13.0-17.5); Lymphocytes # (A) 0.7 k/uL (1.0-4.8); Lymphocytes % (A) 8 %; MCH 31.7 pg (25.0-35.0); MCHC 32.4 g/dL (31.0-37.0); MCV 97.9 fL (80.0-100.0); Macrocytosis Slight; Mean Platelet Volume 9.3; Monocytes # (A) 0.3 k/uL (0-1.0); Monocytes % (A) 3 %; Neutrophils # (A) 7.5 k/uL (1.3-7.7); RBC 3.52 m/uL (4.30-5.90); RDW 16.9 % (11.5-15.5); WBC 8.6 k/uL (3.8-10.6)
[2020-10-03] MEDS: PANTOPRAZOLE 40 MG/10 ML VIAL IVP SCH (08:04)
[2020-10-03] MEDS: ENOXAPARIN 40 MG/0.4 ML SYRINGE SQ SCH (08:05)
[2020-10-03] MEDS: NICOTINE 14MG/24HR PATCH TRANSDERM SCH (08:05)
[2020-10-03] MEDS: ZINC SULFATE 220 MG CAP PO SCH (08:05)
[2020-10-03 08:50] LABS: Platelet Count 99 k/uL (150-450)
[2020-10-03 10:04] LABS: INR 1.52 (0.90-1.11); Prothrombin Time 15.9 sec (9.9-11.9)
[2020-10-03 10:14] LABS: African American GFR (CKD) 125.1 (60.0-200.0); Albumin 3.1 g/dL (3.80-4.90); Albumin/Globulin Ratio 1.19 (1.60-3.17); Anion Gap 6.7 mmol/L (4.00-12.00); BUN/Creat Ratio 24.44 Ratio (12.00-20.00); C Reactive Protein 1.9 mg/dL (0.0-0.8); Calcium 8.3 mg/dL (8.7-10.3); Carbon Dioxide 24.3 mmol/L (21.6-31.8); Globulin 2.6 g/dL (1.6-3.3); Potassium 3.7 mmol/L (3.5-5.5); Total Bilirubin 8.6 mg/dL (0.3-1.2); Total Protein 5.7 g/dL (6.2-8.2)
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
[2020-10-03] MEDS: MULTIVITAMINS, THERA 1 EACH TAB PO SCH (12:22)
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
[2020-10-03] MEDS: SPIRONOLACTONE 25 MG TAB PO SCH (15:06)
--- NOTE | 2020-10-03 16:12 | US ---
EXAMINATION TYPE: US venous doppler duplex LE DATE OF EXAM: 10/03/2020 4:06 PM COMPARISON: NONE CLINICAL HISTORY: dvt. No leg symptoms per patient. Covid positive patient. SIDE PERFORMED: Bilateral TECHNIQUE: The lower extremity deep venous system is examined utilizing real time linear array sonog barbra with graded compression, doppler sonography and color-flow sonography. VESSELS IMAGED: Common Femoral Vein Deep Femoral Vein Greater Saphenous Vein * Femoral Vein Popliteal Vein Small Saphenous Vein * Proximal Calf Veins (* superficial vessels) Right Leg: Negative for DVT Left Leg: Negative for DVT IMPRESSION: No evidence of deep vein thrombosis in both legs.
[2020-10-03] MEDS: PANTOPRAZOLE 40 MG TABLET PO SCH (17:44)
[2020-10-03] MEDS: ONDANSETRON 4 MG/2 ML VIAL IVP PRN (17:45)
[2020-10-03 18:02] LABS: Reticulocyte % 3.2 % (0.5-2.0)
[2020-10-03 22:42] LABS: % Iron Saturation 26.98 (15.00-50.00)
[2020-10-03 23:10] LABS: Ferritin 318.3 ng/mL (22.0-322.0)
[2020-10-03 23:21] LABS: Folate, Serum 5.3 ng/mL
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
[2020-10-04] MEDS: MORPHINE SULFATE 4 MG/ML SYRINGE IV PRN ×2 (02:06→06:01)
[2020-10-04] MEDS: methylPREDNISolone SOD SUCCI 125 MG/2 ML VIAL IV SCH ×2 (05:57→12:35)
--- NOTE | 2020-10-04 05:59 | PN ---
PROGRESS NOTE DATE OF SERVICE: 10/03/2020 REASON FOR FOLLOWUP: 1. COVID-19 infection. 2. Question of cholecystitis. INTERIM HISTORY: The patient is currently afebrile, has been breathing comfortably, currently saturating between 97-95 percent on room air. Denies any chest pain. No shortness of breath or cough. Abdominal pain has improved. Some nausea but no vomiting and no diarrhea. PHYSICAL EXAMINATION: Blood pressure 144/80 with a pulse of 96, temperature 98, he is 95% on room air. General description is a middle-aged male lying in bed in no distress. Respiratory system: Unlabored breathing, decreased breath sounds in the base, with no wheeze. Heart S1, S2. Regular rate and rhythm. Abdomen is soft, no tenderness. LAB: Hemoglobin 9.1, white count 8.6, BUN of 22, creatinine 0.9. DIAGNOSTIC IMPRESSION AND PLAN: 1. Patient with a positive COVID testing on recent admission that was treated symptomatically. Repeat COVID this admission not reported. Patient is clinically responding to Solu-Medrol, Lovenox, zinc sulfate and is currently saturating 95% on room air. 2. Patient with elevated liver enzymes and possible concern for cholecystitis. He is on Rocephin 1 g daily. GI is following the patient. Continue supportive care. MMODL / IJN: [id number] /
[2020-10-04 06:26] LABS: Anisocytosis Slight; Basophils % (A) 0 %; Eosinophils % (A) 0 %; HCT 35.5 % (39.0-53.0); HGB 11.9 gm/dL (13.0-17.5); Lymphocytes # (A) 0.5 k/uL (1.0-4.8); Lymphocytes % (A) 6 %; MCH 32.5 pg (25.0-35.0); MCHC 33.6 g/dL (31.0-37.0); MCV 96.8 fL (80.0-100.0); Monocytes # (A) 0.3 k/uL (0-1.0); Monocytes % (A) 3 %; Neutrophils # (A) 7.2 k/uL (1.3-7.7); Neutrophils % (A) 90 %; RBC 3.66 m/uL (4.30-5.90)
[2020-10-04 06:31] LABS: Platelet Count 90 k/uL (150-450)
[2020-10-04 08:16] VITALS: BP 152/88; PULSE 99; RESP 19; TEMP 98
[2020-10-04] MEDS: PANTOPRAZOLE 40 MG TABLET PO SCH (08:53)
[2020-10-04] MEDS: NICOTINE 14MG/24HR PATCH TRANSDERM SCH (08:53)
[2020-10-04] MEDS: ENOXAPARIN 40 MG/0.4 ML SYRINGE SQ SCH (08:53)
[2020-10-04] MEDS: SPIRONOLACTONE 25 MG TAB PO SCH (08:53)
[2020-10-04] MEDS: MULTIVITAMINS, THERA 1 EACH TAB PO SCH (08:53)
[2020-10-04] MEDS: ZINC SULFATE 220 MG CAP PO SCH (08:53)
[2020-10-04 09:50] LABS: African American GFR (CKD) 131.3 (60.0-200.0); Albumin 3.3 g/dL (3.80-4.90); Albumin/Globulin Ratio 1.22 (1.60-3.17); Anion Gap 6.1 mmol/L (4.00-12.00); BUN/Creat Ratio 21.25 Ratio (12.00-20.00); Calcium 8.3 mg/dL (8.7-10.3); Carbon Dioxide 24.9 mmol/L (21.6-31.8); Globulin 2.7 g/dL (1.6-3.3); Non-African American GFR(CKD) 113.3 (60.0-200.0); Potassium 3.7 mmol/L (3.5-5.5); Total Bilirubin 8.6 mg/dL (0.3-1.2)
[2020-10-04] MEDS ORDERED: HYDROcodone/APAP 5-325MG 1 EACH TAB PO PRN (09:58)
[2020-10-04 10:21] LABS: ALT 105 U/L (4-49); AST 252 U/L (17-59); African American GFR (CKD) >90 (>60 ml/min/1.73 sqM); Albumin 3.4 g/dL (3.5-5.0); Albumin/Globulin Ratio 0.9; Alkaline Phosphatase 203 U/L (38-126); Anion Gap 7 mmol/L; Blood Urea Nitrogen 16 mg/dL (9-20); Calcium 8.5 mg/dL (8.4-10.2); Carbon Dioxide 24 mmol/L (22-30); Chloride 103 mmol/L (98-107); Globulin 3.6 g/dL; Glucose 197 mg/dL (74-99); Non-African American GFR(CKD) >90 (>60 ml/min/1.73 sqM); Potassium 3.6 mmol/L (3.5-5.1); Sodium 134 mmol/L (137-145)
--- NOTE | 2020-10-04 15:20 | P.PN ---
Subjective Progress Note Date: 10/04/20 Principal diagnosis: Elevated LFTs, Alcoholic liver disease The follow up HPI was taken over the phone with the patient because of active Covid 19 infection. The patient was agreeable and consented to telephone follow-up. The amount of time on the phone spent with patient was from [phone]. Patient states he has been afebrile through the night. He states his abdominal pain has improved significantly. He denies any nausea or vomiting. He is tolerating a regular diet. He states his respiratory status has improved and there is plan for discharge later today. Objective - Vital Signs Vital signs: Vital Signs Temp 98 F 10/04/20 08:00 Pulse 99 10/04/20 08:00 Resp 19 10/04/20 08:00 BP 152/88 10/04/20 08:00 Pulse Ox 95 10/04/20 08:00 Intake & Output 10/03/20 10/04/20 10/04/20 18:59 06:59 18:59 Intake Total 1000 Balance 1000 Intake: Intake, IV Titration 50 Amount cefTRIAXone 1 gm In 50 Sodium Chloride 0.9% 50 ml @ 100 mls/hr IVPB Q24H [facility] Rx#:[id number] Oral 950 Other: Voiding Method Toilet Toilet # Voids 2 3 - Exam Exam deferred to primary care team - Labs CBC & Chem 7: 10/04/20 05:58 10/04/20 09:35 Labs: Abnormal Lab Results - Last 24 Hours (Table) 10/02/20 10/03/20 10/03/20 Range/Units 06:45 04:38 04:38 RBC (4.30-5.90) m/uL Hgb (13.0-17.5) gm/dL Hct (39.0-53.0) % RDW (11.5-15.5) % Plt Count (150-450) k/uL Lymphocytes # (1.0-4.8) k/uL Retic Count (0.5-2.0) % PT 15.9 H (9.9-11.9) sec INR 1.52 H (0.90-1.11) BUN/Creatinine Ratio 24.44 H (12.00-20.00) Ratio Glucose 128 H (70-110) mg/dL Calcium 8.3 L (8.7-10.3) mg/dL Iron (65-175) ug/dL TIBC (228-460) ug/dL Total Bilirubin 8.6 H (0.3-1.2) mg/dL AST 189 H (14-35) U/L ALT 75 H (10-49) U/L Alkaline Phosphatase 189 H (41-126) U/L Lactate Dehydrogenase 259 H (120-246) U/L C-Reactive Protein 1.9 H (0.0-0.8) mg/dL Total Protein 5.7 L (6.2-8.2) g/dL Albumin 3.10 L (3.80-4.90) g/dL Albumin/Globulin Ratio 1.19 L (1.60-3.17) g/dL Mqsdt-6-Ypngoyaoxfm 273.0 H (99.0-242.0) mg/dL Vitamin B12 (200.0-944.0) pg/mL 10/03/20 10/03/20 10/04/20 Range/Units 17:47 17:47 05:58 RBC 3.66 L (4.30-5.90) m/uL Hgb 11.9 L (13.0-17.5) gm/dL Hct 35.5 L (39.0-53.0) % RDW 16.0 H (11.5-15.5) % Plt Count 90 L (150-450) k/uL Lymphocytes # 0.5 L (1.0-4.8) k/uL Retic Count 3.2 H (0.5-2.0) % PT (9.9-11.9) sec INR (0.90-1.11) BUN/Creatinine Ratio (12.00-20.00) Ratio Glucose (70-110) mg/dL Calcium (8.7-10.3) mg/dL Iron 58 L (65-175) ug/dL TIBC 215 L (228-460) ug/dL Total Bilirubin (0.3-1.2) mg/dL AST (14-35) U/L ALT (10-49) U/L Alkaline Phosphatase (41-126) U/L Lactate Dehydrogenase (120-246) U/L C-Reactive Protein (0.0-0.8) mg/dL Total Protein (6.2-8.2) g/dL Albumin (3.80-4.90) g/dL Albumin/Globulin Ratio (1.60-3.17) g/dL Znffp-5-Rsewblqjvrp (99.0-242.0) mg/dL Vitamin B12 1334.0 H (200.0-944.0) pg/mL Assessment and Plan (1) Alcoholic hepatitis Narrative/Plan: 40-year-old male presenting for weakness and nausea and vomiting. Patient diagnosed with colon 19 infection on recent admission and is currently receiving treatment for such. The patient also has a history of heavy alcohol abuse in the past and was recently drinking prior to his recent admission. At that time he was found to have marked elevation in his liver enzymes which were felt to be secondary to alcoholic hepatitis. Liver enzymes remain persistently elevated and consistent with alcoholic hepatitis. Patient likely has a degree of underlying liver disease secondary to his history of heavy alcohol use. Liver enzymes have increased slightly today. Status: Acute Code(s): K70.10 - ALCOHOLIC HEPATITIS WITHOUT ASCITES SNOMED Code(s): 149913781 (2) COVID-19 Status: Acute Code(s): U07.1 - COVID-19 SNOMED Code(s): 135417971 (3) Hyperbilirubinemia Status: Acute Code(s): E80.6 - OTHER DISORDERS OF BILIRUBIN METABOLISM SNOMED Code(s): 17506322 (4) Transaminitis Status: Acute Code(s): R74.01 - ELEVATION OF LEVELS OF LIVER TRANSAMINASE LEVELS SNOMED Code(s): 090023902 Plan: Supportive care Okay for diet as tolerated, we'll start sodium restricted due to fluid overload and initiate Aldactone 25 mg daily Continue to monitor CBC, BMP, LFTs Appreciate recommendations from hematology and infectious disease No evidence of thrombus on ultrasound performed after computed tomography scan, with no plan for anticoagulation at this time Alcohol abstinence Avoid hepatotoxic medications Continue other medical management per primary team Scans with patient importance of follow-up with gastroenterology services to monitor LFTs, patient verbalized understanding and will set up follow-up appointment after discharge Thank you for allowing us to participate in the care of the patient Dr. Karen Nguyen I agree with the dictator's note, documented as a scribe by Tyrell Cooley.
--- NOTE | 2020-10-04 18:45 | PN ---
PROGRESS NOTE DATE OF SERVICE: 10/04/2020. REASON FOR FOLLOWUP: 1. Covid. 2. Question cholecystitis. INTERVAL HISTORY: The patient was seen on rounds early this afternoon. The patient has been afebrile. Has been breathing comfortably on room air. The patient denies having any chest pain. No shortness of breath or cough. No abdominal pain. No nausea, vomiting or diarrhea. PHYSICAL EXAMINATION: Blood pressure 102/88 with a pulse of 99, temperature 98. He is 95% on room air. General description: The patient is a middle-aged male up in the room in no distress. Respiratory system: Unlabored breathing, clear to auscultation. No wheeze or crackles. HEART: S1, S2. Regular rate and rhythm. ABDOMEN: Soft. No tenderness. LABS: Liver enzymes still elevated. DIAGNOSTIC IMPRESSION AND PLAN: 1. Patient with positive COVID testing in this patient clinically responding to the steroids, and Lovenox and zinc to finish therapy with a short course of oral Ceftin on discharge. 2. Patient with abnormal liver enzymes and question of possible cholangitis, did well on Rocephin. Plan to finish a short course of oral Ceftin. MMODL / IJN: [id number] /
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
== END 2020-10-04 14:40 | disposition home or self-care (01) | DRG 871 ==
LOC: EC 07:50 → 6NMEDSUR 12:36
PROVIDERS: ADMIT Hospitalist; ATTEND Hospitalist
DX: A41.89 Other specified sepsis (principal); J12.89 Other viral pneumonia; U07.1 COVID-19; D68.4 Acquired coagulation factor deficiency; E87.1 Hypo-osmolality and hyponatremia; K82.1 Hydrops of gallbladder; F17.200 Nicotine dependence, unspecified, uncomplicated; E87.6 Hypokalemia; E66.9 Obesity, unspecified; F32.9 Major depressive disorder, single episode, unspecified; F41.9 Anxiety disorder, unspecified; I10 Essential (primary) hypertension; F10.10 Alcohol abuse, uncomplicated; K70.11 Alcoholic hepatitis with ascites; K70.31 Alcoholic cirrhosis of liver with ascites; D69.6 Thrombocytopenia, unspecified; Z68.31 Body mass index [BMI] 31.0-31.9, adult; Z79.52 Long term (current) use of systemic steroids; Z79.899 Other long term (current) drug therapy; Z83.3 Family history of diabetes mellitus; Z86.19 Personal history of other infectious and parasitic diseases; Z86.718 Personal history of other venous thrombosis and embolism; Z87.442 Personal history of urinary calculi; Z90.01 Acquired absence of eye; Z97.0 Presence of artificial eye; Z90.49 Acquired absence of other specified parts of digestive tract; Z98.890 Other specified postprocedural states
CPT/HCPCS: 36415; 71045; 71260; 74177; 80053; 80074; 81001; 82103; 82105; 82607; 82728; 82746; 83540; 83550; 83605; 83615; 83690; 83735; 83921; 84132; 84145; 85025; 85045; 85379; 85610; 85652; 85730; 86140; 86308; 93005; 93970; 93976; 96365; 96366; 96375; 99285

== ENCOUNTER 2020-11-03 04:49 | Inpatient (IN) | payer OTHER ==
[2020-11-03] MEDS ORDERED: MORPHINE SULFATE 4 MG/ML SYRINGE IV STA (05:09)
[2020-11-03] MEDS ORDERED: PANTOPRAZOLE 40 MG/10 ML VIAL IVP STA (05:09)
[2020-11-03] MEDS ORDERED: SODIUM CHLORIDE 0.9% 500 ML 500 ML IV STA (05:09)
[2020-11-03] MEDS ORDERED: SODIUM CHLORIDE 0.9% 1,000 ML IV STA ×2 (05:09)
[2020-11-03] MEDS ORDERED: ONDANSETRON 4 MG/2 ML VIAL IVP STA (05:09)
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
[2020-11-03 05:30] LABS: Basophils # (A) 0.1 k/uL (0-0.2); Basophils % (A) 0 %; Eosinophils # (A) 0.4 k/uL (0-0.7); Eosinophils % (A) 3 %; HCT 38.8 % (39.0-53.0); HGB 12.7 gm/dL (13.0-17.5); Lymphocytes # (A) 1.9 k/uL (1.0-4.8); Lymphocytes % (A) 16 %; MCHC 32.6 g/dL (31.0-37.0); MCV 101.1 fL (80.0-100.0); Macrocytosis Slight; Mean Platelet Volume 9.3; Monocytes # (A) 0.7 k/uL (0-1.0); Monocytes % (A) 5 %; Neutrophils # (A) 9.2 k/uL (1.3-7.7); Neutrophils % (A) 74 %; Platelet Count 103 k/uL (150-450); RBC 3.83 m/uL (4.30-5.90); RDW 14.7 % (11.5-15.5); WBC 12.4 k/uL (3.8-10.6)
[2020-11-03 05:54] LABS: ALT 29 U/L (4-49); AST 63 U/L (17-59); African American GFR (CKD) 82 (>60 ml/min/1.73 sqM); Albumin 3.3 g/dL (3.5-5.0); Alcohol <10 mg/dL; Alkaline Phosphatase 211 U/L (38-126); Amylase 67 U/L (30-110); Anion Gap 10 mmol/L; Blood Urea Nitrogen 13 mg/dL (9-20); Calcium 8.8 mg/dL (8.4-10.2); Carbon Dioxide 22 mmol/L (22-30); Chloride 104 mmol/L (98-107); Creatine Kinase 26 U/L (55-170); Glucose 123 mg/dL (74-99); Lipase 198 U/L (23-300); Non-African American GFR(CKD) 71 (>60 ml/min/1.73 sqM); Sodium 136 mmol/L (137-145); Total Bilirubin 6.5 mg/dL (0.2-1.3); Total Protein 6.7 g/dL (6.3-8.2)
--- NOTE | 2020-11-03 06:07 | XR ---
EXAM: XR Chest, 2 Views CLINICAL HISTORY: ITS.REASON XR Reason: sob TECHNIQUE: Frontal and lateral views of the chest. COMPARISON: 09/30/2020, CT dated 10/02/2020 FINDINGS: Lungs: Low lung volumes. No consolidation. Pleural space: Unremarkable. No pneumothorax. Heart: Unremarkable. No cardiomegaly. Mediastinum: Unremarkable. Bones/joints: Unremarkable. IMPRESSION: No acute intrathoracic process.
[2020-11-03] MEDS ORDERED: THIAMINE 100 MG/ML 2 ML VIAL IM STA (06:18)
[2020-11-03] MEDS ORDERED: LORazepam 2 MG/ML INJ IV PRN ×3 (06:18)
[2020-11-03] MEDS ORDERED: NALOXONE 0.4 MG/ML 1 ML VIAL IV PRN (06:18)
[2020-11-03] MEDS ORDERED: ONDANSETRON 4 MG/2 ML VIAL IVP PRN (06:18)
[2020-11-03] MEDS ORDERED: POTASSIUM BICARBONATE/CIT AC 20 MEQ TABLET.EFF PO ONE (06:20)
[2020-11-03] MEDS: DEXTROSE 5%-0.45% NACL 1,000 ML IV SCH ×2 (06:48→22:51)
[2020-11-03 08:43] LABS: INR 1.4 (<1.2); Prothrombin Time 13.8 sec (9.0-12.0)
[2020-11-03] MEDS ORDERED: PANTOPRAZOLE 40 MG/10 ML VIAL IV SCH (09:00)
[2020-11-03] MEDS ORDERED: Potassium Replacement Protocol 1 EACH MISC MISCELLANE PRN (09:19)
[2020-11-03] MEDS ORDERED: HYDROcodone/APAP 10-325MG 1 EACH TAB PO PRN (09:20)
[2020-11-03] MEDS: MULTIVITAMINS, THERA 1 EACH TAB PO SCH (09:20)
[2020-11-03] MEDS ORDERED: ALBUTEROL NEBULIZED 2.5 MG/3 ML INHALATION PRN (09:20)
[2020-11-03] MEDS ORDERED: PANTOPRAZOLE 40 MG/10 ML VIAL IVP SCH (09:30)
[2020-11-03] MEDS ORDERED: POTASSIUM CHLORIDE 10 MEQ in WATER FOR INJECTION 1 100ML.BAG IVPB SCH (10:00)
[2020-11-03] MEDS ORDERED: MULTIVITAMINS, THERA 1 EACH TAB PO SCH (12:00)
[2020-11-03 12:44] LABS: C Reactive Protein 22.1 mg/L (<10.0); Potassium 3.2 mmol/L (3.5-5.1)
[2020-11-03] MEDS: amLODIPine 5 MG TAB PO SCH (13:07)
[2020-11-03] MEDS: SPIRONOLACTONE 25 MG TAB PO SCH (13:07)
[2020-11-03] MEDS: MORPHINE SULFATE 4 MG/ML SYRINGE IV PRN ×2 (13:09→20:18)
--- NOTE | 2020-11-03 15:00 | US ---
EXAMINATION TYPE: US paracentesis abd w/image DATE OF EXAM: 11/03/2020 COMPARISON: NONE HISTORY: Ascites. PROCEDURE: Maximal barrier technique was utilized. The skin overlying a suitable pocket of fluid was localized with ultrasound and the overlying skin was prepped and draped. Ultrasound was utilized with sterile technique. Lidocaine was used for local anesthesia and a skin zulay made with a scalpel. Catheter was advanced under direct ultrasound guidance into a suitable pocket of fluid and approximately 6.4 liter s of serous fluid were removed. Catheter was withdrawn and hemostasis achieved. There is no immedia te complication; the patient is discharged in stable condition. IMPRESSION: STATUS POST ULTRASOUND GUIDED PARACENTESIS FOR PALLIATION OF ASCITES. THIS PROCEDURE WA S PERFORMED BY THE UNDERSIGNED.
[2020-11-03] MEDS: POTASSIUM CHLORIDE ER 20 MEQ TAB.ER PO SCH ×2 (15:08→17:37)
[2020-11-03 15:27] LABS: Appearance,BF Clear; Color,BF Yellow; Nucleated Cells, Body Fluid 28 /uL
[2020-11-03 15:28] LABS: RBC, Body Fluid 91 /uL
[2020-11-03 16:17] LABS: Mononuclear WBC,Body Fluid 70 %; Polynuclear WBC,Body Fluid 30 %
[2020-11-03] MEDS: THIAMINE 100 MG TAB PO SCH (17:37)
[2020-11-03] MEDS ORDERED: ALPRAZolam 0.25 MG TAB PO PRN (20:26)
--- NOTE | 2020-11-03 21:36 | CT ---
EXAMINATION TYPE: CT ChestAbdPelvis wo con DATE OF EXAM: 11/03/2020 COMPARISON: 09/30/2020 HISTORY: Ascites, Covid + CT DLP: 944.8 mGycm Automated exposure control for dose reduction was used. Images were obtained from the thoracic inlet to the floor the pelvis with no contrast. There is small linear density in the posterior lung borjas consistent with subsegmental atelectasis. Heart size is normal. There is no mediastinal adenopathy. There is no evidence of a pulmonary mass. T here are no hilar masses. Thoracic aorta shows no sign of aneurysm. Spleen is enlarged and measures 18 cm. There is moderate abdominal ascites fluid. Stomach is intact. There is no evidence of pancreatic mass. Gallbladder is intact. Liver shows no focal defect. There is no adrenal mass. Kidneys have normal size. There is no hydronephrosis. Bladder distends smoothly. There is no inguinal hernia. There is no free fluid in the pelvis. There a re a few sigmoid diverticula. There is no evidence of diverticulitis. There is no sign of free air. There is no evidence of a bowel obstruction. Thoracic and lumbar vertebra have normal spacing and alignment. Sternum is intact. The bony pelvis is intact. Hip joints appear intact. There is no evidence of retroperitoneal adenopathy. I see no pelvic mass. IMPRESSION: There is patchy atelectasis in the lungs that appears improved compared to 10/02/2020 CT scan. Moderate abdominal ascites fluid unchanged compared to 09/30/2020. Splenomegaly unchanged.
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
[2020-11-03] MEDS: NICOTINE 21MG/24HR PATCH TRANSDERM SCH (22:53)
[2020-11-03] MEDS: HEPARIN SODIUM,PORCINE 5,000 UNIT/ML 1 ML VIAL SQ SCH (22:53)
[2020-11-04] MEDS: MORPHINE SULFATE 4 MG/ML SYRINGE IV PRN ×5 (00:36→23:27)
[2020-11-04 03:11] LABS: Appearance,Urine Clear (Clear); Bilirubin,Urine 1+ (Negative); Blood,Urine Negative (Negative); Color,Urine Dark Yellow; Glucose,Urine (UA) Negative (Negative); Ketones,Urine Negative (Negative); Leukocyte Esterase,Urine Negative (Negative); Nitrite,Urine Negative (Negative); PH, Urine 5.5 (5.0-8.0); Protein,Urine Trace (Negative); Specific Gravity,Urine 1.016 (1.001-1.035)
[2020-11-04 07:30] LABS: Basophils % (A) 1 %; Eosinophils # (A) 0.3 k/uL (0-0.7); Eosinophils % (A) 4 %; HCT 34.3 % (39.0-53.0); HGB 11.4 gm/dL (13.0-17.5); Lymphocytes # (A) 1.6 k/uL (1.0-4.8); Lymphocytes % (A) 19 %; MCH 33.5 pg (25.0-35.0); MCHC 33.2 g/dL (31.0-37.0); MCV 100.9 fL (80.0-100.0); Macrocytosis Slight; Mean Platelet Volume 9.5; Monocytes # (A) 0.5 k/uL (0-1.0); Monocytes % (A) 6 %; Neutrophils # (A) 5.7 k/uL (1.3-7.7); Neutrophils % (A) 70 %; RDW 14.4 % (11.5-15.5); WBC 8.1 k/uL (3.8-10.6)
--- NOTE | 2020-11-04 08:25 | NM ---
EXAMINATION TYPE: NM pul perfusion DATE OF EXAM: 11/04/2020 COMPARISON: Chest x-ray 11/03/2020 HISTORY: Shortness of breath, positive Covid test Following administration of 5.39 mCi Tc 99m MAA. Images obtained post injection. FINDINGS: Homogenous radiopharmaceutical uptake noted on perfusion images. IMPRESSION: Low probability for pulmonary embolus
[2020-11-04 08:46] LABS: Platelet Count 73 k/uL (150-450); Poikilocytosis (M) Present
[2020-11-04] MEDS ORDERED: PANTOPRAZOLE 40 MG TABLET PO SCH (09:00)
[2020-11-04] MEDS: HEPARIN SODIUM,PORCINE 5,000 UNIT/ML 1 ML VIAL SQ SCH ×2 (09:47→21:02)
[2020-11-04] MEDS: NICOTINE 21MG/24HR PATCH TRANSDERM SCH (09:47)
[2020-11-04] MEDS: THIAMINE 100 MG TAB PO SCH ×2 (09:47→17:07)
[2020-11-04] MEDS: MULTIVITAMINS, THERA 1 EACH TAB PO SCH (09:48)
[2020-11-04] MEDS: SPIRONOLACTONE 25 MG TAB PO SCH (12:19)
[2020-11-04] MEDS: POTASSIUM CHLORIDE ER 20 MEQ TAB.ER PO SCH ×2 (12:19→13:45)
[2020-11-04] MEDS: amLODIPine 5 MG TAB PO SCH (12:19)
[2020-11-04] MEDS: PANTOPRAZOLE 40 MG/10 ML VIAL IVP SCH ×2 (12:19→21:02)
[2020-11-04 13:10] VITALS: BMI 31.5
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
[2020-11-04 17:33] LABS: African American GFR (CKD) 131.3 (60.0-200.0); Albumin 2.9 g/dL (3.80-4.90); Albumin/Globulin Ratio 1.38 (1.60-3.17); Anion Gap 6.6 mmol/L (4.00-12.00); BUN/Creat Ratio 11.25 Ratio (12.00-20.00); Bilirubin, Conjugated 5.1 mg/dL (0.20-0.40); Bilirubin,Unconjugated 2.2 mg/dL; C Reactive Protein 1.8 mg/dL (0.0-0.8); Carbon Dioxide 25.4 mmol/L (21.6-31.8); Globulin 2.1 g/dL (1.6-3.3); Non-African American GFR(CKD) 113.3 (60.0-200.0); Potassium 3.2 mmol/L (3.5-5.5); Total Bilirubin 7.3 mg/dL (0.2-1.2)
[2020-11-04 17:40] LABS: ALT 33 U/L (4-49); AST 110 U/L (17-59); African American GFR (CKD) >90 (>60 ml/min/1.73 sqM); Albumin 3.7 g/dL (3.5-5.0); Albumin/Globulin Ratio 1.1; Alkaline Phosphatase 174 U/L (38-126); Anion Gap 7 mmol/L; Blood Urea Nitrogen 9 mg/dL (9-20); Calcium 8.9 mg/dL (8.4-10.2); Carbon Dioxide 25 mmol/L (22-30); Chloride 103 mmol/L (98-107); Globulin 3.4 g/dL; Glucose 92 mg/dL (74-99); Non-African American GFR(CKD) >90 (>60 ml/min/1.73 sqM); Sodium 135 mmol/L (137-145); Total Bilirubin 7.5 mg/dL (0.2-1.3); Total Protein 7.1 g/dL (6.3-8.2)
[2020-11-04] MEDS: FUROSEMIDE 20 MG TAB PO SCH (17:45)
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
--- NOTE | 2020-11-04 22:53 | P.PN ---
Subjective Progress Note Date: 11/04/20 Objective - Vital Signs Vital signs: Vital Signs Temp 97.7 F 11/04/20 11:57 Pulse 98 11/04/20 11:57 Resp 20 11/04/20 11:57 BP 120/72 11/04/20 11:57 Pulse Ox 98 11/04/20 11:57 Intake & Output 11/03/20 11/04/20 11/04/20 18:59 06:59 18:59 Intake Total 900 1000 Balance 900 1000 Weight 99.79 kg 99.79 kg Intake: Intake, IV Titration 900 Amount Dextrose 5%-0.45% NaCl 1, 900 000 ml @ 75 mls/hr IV . [id number] Rx#:[id number] Oral 1000 Other: # Voids 2 # Bowel Movements 0 - Labs CBC & Chem 7: 11/04/20 07:01 11/04/20 17:09 Labs: Abnormal Lab Results - Last 24 Hours (Table) 11/03/20 11/03/20 11/04/20 Range/Units 12:10 12:10 00:25 RBC (4.30-5.90) m/uL Hgb (13.0-17.5) gm/dL Hct (39.0-53.0) % MCV (80.0-100.0) fL Plt Count (150-450) k/uL D-Dimer (<0.60) mg/L FEU Potassium (3.5-5.1) mmol/L Ferritin 322.5 H (22.0-322.0) ng/mL Ammonia (<30) umol/L Procalcitonin 0.18 H (0.02-0.09) ng/mL Urine Protein Trace H (Negative) Urine Bilirubin 1+ H (Negative) 11/04/20 11/04/20 11/04/20 Range/Units 07:01 07:01 07:01 RBC 3.40 L (4.30-5.90) m/uL Hgb 11.4 L (13.0-17.5) gm/dL Hct 34.3 L (39.0-53.0) % MCV 100.9 H (80.0-100.0) fL Plt Count 73 L (150-450) k/uL D-Dimer 7.28 H (<0.60) mg/L FEU Potassium (3.5-5.1) mmol/L Ferritin (22.0-322.0) ng/mL Ammonia 38 H (<30) umol/L Procalcitonin (0.02-0.09) ng/mL Urine Protein (Negative) Urine Bilirubin (Negative) 11/04/20 Range/Units 10:07 RBC (4.30-5.90) m/uL Hgb (13.0-17.5) gm/dL Hct (39.0-53.0) % MCV (80.0-100.0) fL Plt Count (150-450) k/uL D-Dimer (<0.60) mg/L FEU Potassium 3.3 L (3.5-5.1) mmol/L Ferritin (22.0-322.0) ng/mL Ammonia (<30) umol/L Procalcitonin (0.02-0.09) ng/mL Urine Protein (Negative) Urine Bilirubin (Negative) Microbiology - Last 24 Hours (Table) 11/03/20 10:42 Gram Stain - Preliminary Paracentesis Fluid Body Fluid Culture - Preliminary 11/03/20 10:42 Anaerobic Culture - Preliminary Paracentesis Fluid Assessment and Plan (1) Alcoholic liver disease Narrative/Plan: 32-year-old male with multiple medical comorbidities including decompensated alcoholic liver disease previously hospitalized for acute alcoholic hepatitis. He presented back to the hospital with reports of increasing abdominal distention with associated nausea and vomiting. The patient has been taking Aldactone 50 mg daily and Lasix 40 mg daily since discharge and trying to adhere to a sodium restricted diet. He feels that the abdominal distention has become worse. He was found to be hypokalemic on presentation with some elevation in creatinine. Patient likely has chronic underlying liver disease and likely cirrhosis with superimposed alcoholic hepatitis. He is remaining abstinent from alcohol at this time since his last hospitalization in August. Current Visit: Yes Status: Acute Code(s): K70.9 - ALCOHOLIC LIVER DISEASE, UNSPECIFIED SNOMED Code(s): 51330463 (2) Ascites Current Visit: Yes Status: Acute Code(s): R18.8 - OTHER ASCITES SNOMED Code(s): 980706388 (3) Transaminitis Current Visit: Yes Status: Acute Code(s): R74.01 - ELEVATION OF LEVELS OF LIVER TRANSAMINASE LEVELS SNOMED Code(s): 296844408 (4) Alcoholic hepatitis Current Visit: No Status: Acute Code(s): K70.10 - ALCOHOLIC HEPATITIS WITHOUT ASCITES SNOMED Code(s): 085139901 (5) Hyperbilirubinemia Current Visit: No Status: Acute Code(s): E80.6 - OTHER DISORDERS OF BILIRUBIN METABOLISM SNOMED Code(s): 74919326 Plan: Supportive care Okay for sodium restricted diet Continue Aldactone therapy Lasix 20 mg daily added by primary team today Continue alcohol abstinence Continue to monitor CBC, BMP and LFTs Patient will need continued follow-up at the gastroenterology service and currently has an appointment for follow-up next week in the clinic Thank you for allowing us to be in the care of the patient
[2020-11-05] MEDS: MORPHINE SULFATE 4 MG/ML SYRINGE IV PRN ×2 (03:45→08:41)
[2020-11-05 06:19] LABS: Basophils # (A) 0.1 k/uL (0-0.2); Basophils % (A) 1 %; Eosinophils # (A) 0.2 k/uL (0-0.7); Eosinophils % (A) 3 %; HCT 33.8 % (39.0-53.0); HGB 11.7 gm/dL (13.0-17.5); Lymphocytes # (A) 1.9 k/uL (1.0-4.8); Lymphocytes % (A) 24 %; MCH 35.1 pg (25.0-35.0); MCHC 34.6 g/dL (31.0-37.0); MCV 101.5 fL (80.0-100.0); Macrocytosis Slight; Mean Platelet Volume 9.5; Monocytes # (A) 0.5 k/uL (0-1.0); Monocytes % (A) 6 %; Neutrophils % (A) 65 %; RBC 3.34 m/uL (4.30-5.90); RDW 13.7 % (11.5-15.5); WBC 7.7 k/uL (3.8-10.6)
[2020-11-05 06:21] LABS: Platelet Count 77 k/uL (150-450)
[2020-11-05] MEDS: FUROSEMIDE 20 MG TAB PO SCH (08:38)
[2020-11-05] MEDS: MULTIVITAMINS, THERA 1 EACH TAB PO SCH (08:39)
[2020-11-05] MEDS: HEPARIN SODIUM,PORCINE 5,000 UNIT/ML 1 ML VIAL SQ SCH (08:39)
[2020-11-05] MEDS: THIAMINE 100 MG TAB PO SCH (08:39)
[2020-11-05] MEDS: NICOTINE 21MG/24HR PATCH TRANSDERM SCH (08:39)
[2020-11-05] MEDS: PANTOPRAZOLE 40 MG/10 ML VIAL IVP SCH (08:39)
[2020-11-05 09:42] LABS: African American GFR (CKD) 131.3 (60.0-200.0); Albumin 3.2 g/dL (3.80-4.90); Albumin/Globulin Ratio 1.45 (1.60-3.17); Anion Gap 6.9 mmol/L (4.00-12.00); BUN/Creat Ratio 11.25 Ratio (12.00-20.00); Calcium 8.2 mg/dL (8.7-10.3); Carbon Dioxide 26.1 mmol/L (21.6-31.8); Globulin 2.2 g/dL (1.6-3.3); Non-African American GFR(CKD) 113.3 (60.0-200.0); Potassium 3.6 mmol/L (3.5-5.5); Total Bilirubin 7.2 mg/dL (0.3-1.2); Total Protein 5.4 g/dL (6.2-8.2)
[2020-11-05 10:36] VITALS: BP 104/70; TEMP 98.2
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
[2020-11-05 11:57] VITALS: PULSE 98; RESP 18
[2020-11-05] MEDS: amLODIPine 5 MG TAB PO SCH (12:54)
[2020-11-05] MEDS: SPIRONOLACTONE 25 MG TAB PO SCH (12:54)
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
--- NOTE | 2020-11-05 17:36 | PN ---
PROGRESS NOTE DATE OF SERVICE: 11/05/2020 REASON FOR FOLLOWUP: Leukocytosis and Covid. INTERVAL COURSE: The patient is currently afebrile. Patient is breathing comfortably on room air. Denies having any chest pain or shortness of breath or cough. He is complaining of abdominal pain though. No improvement and has more abdominal distention, no diarrhea. PHYSICAL EXAMINATION: Blood pressure 104/70 with a pulse of 90, temperature 98.2. He is 98% on room air. General description is a middle-aged male lying in bed in no distress. Respiratory system: Unlabored breathing, clear to auscultation anteriorly. Heart S1, S2. Regular rate and rhythm. Abdomen soft, no tenderness. LABS: Hemoglobin is 11.4, white count 7.7, BUN of 9, creatinine 0.8. Ascitic fluid culture currently pending. DIAGNOSTIC IMPRESSION AND PLAN: 1. Patient with elevated white count in this patient who was admitted to the hospital with ascites status post paracentesis which did not look infected. White count normalized. Cultures negative. Antibiotic can be discontinued. 2. The patient with history of Covid but no new pulmonary symptoms. No need for any further workup for the same. MMODL / IJN: [id number] /
== END 2020-11-05 15:43 | disposition home or self-care (01) | DRG 433 ==
LOC: EC 04:49 → UNDOADMOB 06:19 → 6NMEDSUR 06:19
PROVIDERS: ADMIT Hospitalist; ATTEND Hospitalist
PROC: 0W9G3ZZ Drainage of Peritoneal Cavity, Percutaneous Approach (ICD-10-PCS; principal; 2020-11-03)
DX: K70.31 Alcoholic cirrhosis of liver with ascites (principal); D68.4 Acquired coagulation factor deficiency; I10 Essential (primary) hypertension; F17.200 Nicotine dependence, unspecified, uncomplicated; E87.6 Hypokalemia; E66.9 Obesity, unspecified; K70.11 Alcoholic hepatitis with ascites; K21.9 Gastro-esophageal reflux disease without esophagitis; D69.6 Thrombocytopenia, unspecified; D53.9 Nutritional anemia, unspecified; Z68.31 Body mass index [BMI] 31.0-31.9, adult; Z79.899 Other long term (current) drug therapy; Z86.718 Personal history of other venous thrombosis and embolism; Z83.3 Family history of diabetes mellitus; Z82.49 Family history of ischemic heart disease and other diseases of the circulatory system; Z90.49 Acquired absence of other specified parts of digestive tract; Z82.3 Family history of stroke; Z98.890 Other specified postprocedural states; Z86.19 Personal history of other infectious and parasitic diseases
CPT/HCPCS: 36415; 49083; 71046; 71250; 74176; 78580; 80053; 80320; 81003; 82140; 82150; 82248; 82390; 82550; 82728; 83605; 83690; 83735; 84132; 84145; 85025; 85379; 85610; 86140; 87070; 87075; 87077; 87186; 87205; 89050; 96361; 96372; 96374; 96375; 99285

== ENCOUNTER 2020-12-02 05:14 | Observation (INO) | payer OTHER ==
[2020-12-02] MEDS ORDERED: MORPHINE SULFATE 4 MG/ML SYRINGE IV STA (05:31)
[2020-12-02] MEDS ORDERED: PANTOPRAZOLE 40 MG/10 ML VIAL IVP STA (05:31)
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
[2020-12-02 06:03] LABS: Basophils # (A) 0.1 k/uL (0-0.2); Basophils % (A) 1 %; Eosinophils # (A) 0.3 k/uL (0-0.7); Eosinophils % (A) 4 %; HGB 12.1 gm/dL (13.0-17.5); Lymphocytes # (A) 1.2 k/uL (1.0-4.8); Lymphocytes % (A) 16 %; MCH 33.7 pg (25.0-35.0); MCHC 34.6 g/dL (31.0-37.0); MCV 97.3 fL (80.0-100.0); Mean Platelet Volume 8.2; Monocytes # (A) 0.4 k/uL (0-1.0); Monocytes % (A) 5 %; Neutrophils # (A) 5.5 k/uL (1.3-7.7); Neutrophils % (A) 72 %; RBC 3.59 m/uL (4.30-5.90); RDW 13.5 % (11.5-15.5); WBC 7.6 k/uL (3.8-10.6)
[2020-12-02 06:13] LABS: ALT 22 U/L (4-49); AST 63 U/L (17-59); African American GFR (CKD) >90 (>60 ml/min/1.73 sqM); Albumin 3.3 g/dL (3.5-5.0); Alcohol <10 mg/dL; Alkaline Phosphatase 193 U/L (38-126); Amylase 40 U/L (30-110); Anion Gap 12 mmol/L; Blood Urea Nitrogen 7 mg/dL (9-20); Calcium 8.9 mg/dL (8.4-10.2); Carbon Dioxide 23 mmol/L (22-30); Chloride 106 mmol/L (98-107); Creatine Kinase 27 U/L (55-170); Glucose 105 mg/dL (74-99); INR 1.5 (<1.2); Lipase 75 U/L (23-300); Non-African American GFR(CKD) >90 (>60 ml/min/1.73 sqM); Partial Thromboplastin Time 27.6 sec (22.0-30.0); Potassium 3.4 mmol/L (3.5-5.1); Prothrombin Time 14.7 sec (9.0-12.0); Sodium 141 mmol/L (137-145); Total Bilirubin 4.7 mg/dL (0.2-1.3); Total Protein 6.8 g/dL (6.3-8.2)
[2020-12-02 06:17] LABS: Lactic Acid, Venous 2.7 mmol/L (0.7-2.0)
[2020-12-02] MEDS ORDERED: THIAMINE 100 MG/ML 2 ML VIAL IM STA (06:29)
[2020-12-02] MEDS ORDERED: LORazepam 2 MG/ML INJ IV PRN ×3 (06:29)
[2020-12-02] MEDS ORDERED: NALOXONE 0.4 MG/ML 1 ML VIAL IV PRN (06:29)
[2020-12-02] MEDS ORDERED: LACTULOSE 20 GM/30 ML CUP PO ONE (06:30)
[2020-12-02 06:47] LABS: Platelet Count 97 k/uL (150-450)
[2020-12-02] MEDS: SODIUM CHLORIDE 0.9% 1,000 ML IV SCH ×2 (07:14→12:01)
[2020-12-02] MEDS: MORPHINE SULFATE 4 MG/ML SYRINGE IV PRN ×4 (10:31→23:20)
[2020-12-02] MEDS: LACTULOSE 20 GM/30 ML CUP PO SCH ×2 (10:32→21:04)
[2020-12-02] MEDS ORDERED: ZOLPIDEM 10 MG TAB PO PRN (10:53)
[2020-12-02] MEDS ORDERED: ALBUTEROL HFA INHALER INHALATION PRN (10:53)
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
[2020-12-02] MEDS: IOPAMIDOL CONTRAST (ORAL USE) VIAL PO PRN ×2 (13:01→14:02)
[2020-12-02] MEDS: ONDANSETRON 4 MG/2 ML VIAL IVP PRN ×2 (14:03→21:35)
[2020-12-02 14:44] LABS: Appearance,Urine Clear (Clear); Bilirubin,Urine 1+ (Negative); Blood,Urine Negative (Negative); Color,Urine Orange; Glucose,Urine (UA) Negative (Negative); Ketones,Urine Negative (Negative); Leukocyte Esterase,Urine Negative (Negative); Mucus,Urine Many /hpf; Nitrite,Urine Negative (Negative); PH, Urine 6.5 (5.0-8.0); Protein,Urine 1+ (Negative); RBC,Urine 2 /hpf (0-5); Specific Gravity,Urine 1.032 (1.001-1.035); Squamous Epithelial Cell,Urine 1 /hpf (0-4); WBC,Urine 3 /hpf (0-5)
[2020-12-02 15:05] VITALS: BMI 28.7
--- NOTE | 2020-12-02 15:09 | CT ---
EXAMINATION TYPE: CT abdomen pelvis w con DATE OF EXAM: 12/02/2020 COMPARISON: 11/03/2020 INDICATION: Left sided abdominal pain. DLP: 1281.6 mGycm, Automated exposure control for dose reduction was used. CONTRAST: 100 mL of Isovue 300. Study performed with Oral Contrast TECHNIQUE: Axial images were obtained from above the diaphragm to the pubic rami in the axial plane a t 5 mm thick sections. Reconstructed images are reviewed on the computer in the coronal plane. FINDINGS: Limited CT sections are obtained the lung bases. There is a small left pleural effusion. This is an interval change.. CT ABDOMEN: Ascites is evident. Large venous structures are within the anterior abdominal wall. Liver: Normal Spleen: Enlarged measuring 17.3 cm in craniocaudal dimension Pancreas: Normal Adrenal glands: The adrenal glands are normal. Gallbladder: There may be some asymmetric wall thickening of the gallbladder. Additional workup is re commended. Debris and wall thickening should be considered. This appears to been present previously. Kidneys: No masses are evident. No hydronephrosis is present. Couple small cortical renal cysts are on the postcontrast delayed images. Aorta: Vascular calcification is within the aorta. Inferior vena cava: Normal. CT PELVIS: Small periumbilical hernia containing fluid is present Loops of bowel within the abdomen and pelvis are normal. There are loops of bowel which are incom pletely distended or lack oral contrast limiting their evaluation. Appendix: Not visualized. No dilated tubular structure inflammatory changes are evident. Urinary bladder: Normal. Genitourinary structures: Prostate is normal Osseous structures: No suspicious lytic or sclerotic lesions. IMPRESSIONS: 1. Small left pleural effusion. 2. Large amount of abdominal ascites, present previously. 3. Splenomegaly. 4. Debris or irregular thickening of the gallbladder wall. Consider follow-up ultrasound.
[2020-12-02] MEDS: THIAMINE 100 MG TAB PO SCH (17:26)
[2020-12-02] MEDS ORDERED: NICOTINE 21MG/24HR PATCH TRANSDERM STA (21:26)
[2020-12-02] MEDS: PANTOPRAZOLE 40 MG/10 ML VIAL IV SCH (21:31)
[2020-12-02] MEDS ORDERED: Potassium Replacement Protocol 1 EACH MISC MISCELLANE PRN (23:13)
[2020-12-02] MEDS ORDERED: SODIUM CHLORIDE 0.9% 1,000 ML IV SCH (23:15)
[2020-12-02] MEDS: POTASSIUM CHLORIDE ER 20 MEQ TAB.ER PO SCH (23:20)
[2020-12-03] MEDS: POTASSIUM CHLORIDE ER 20 MEQ TAB.ER PO SCH (02:00)
[2020-12-03] MEDS: MORPHINE SULFATE 4 MG/ML SYRINGE IV PRN ×2 (03:33→08:39)
[2020-12-03] MEDS: ONDANSETRON 4 MG/2 ML VIAL IVP PRN (03:33)
[2020-12-03] MEDS: THIAMINE 100 MG TAB PO SCH (08:36)
[2020-12-03] MEDS: LACTULOSE 20 GM/30 ML CUP PO SCH (08:37)
[2020-12-03] MEDS: PANTOPRAZOLE 40 MG/10 ML VIAL IV SCH (08:38)
[2020-12-03] MEDS ORDERED: NICOTINE 21MG/24HR PATCH TRANSDERM SCH (09:00)
[2020-12-03] MEDS ORDERED: PANTOPRAZOLE 40 MG/10 ML VIAL IV SCH (09:00)
--- NOTE | 2020-12-03 10:22 | P.DS ---
Providers Date of admission: 12/02/20 06:29 Attending physician: Sherri Rosa Consults: 12/02/20 06:29 Consult Physician Routine Consulting Provider: Fuentes Burt Consult Reason/Comments: known Do you want consulting provider notified?: Yes Primary care physician: Mila Billings [facility] Course: Patient is a 35-year-old male with known history of alcoholic cirrhosis although denies drinking alcohol in the past came in with comments of pain in the left flank area about 6-7/10 in severity patient says his pain pain has been going on since last January. Patient doesn't have any significant ascites because of which are his a scheduled up paracentesis was canceled. He usually gets Paracentesis once in 3 weeks. Patient will also company of nausea vomiting and increasing pain from his baseline because of which he came to the hospital although patient keeps changing his history. His pain is sharp in nature. Patient had a history of nephrolithiasis. Lipase is negative. I do not see any imaging a lot of the computed tomography scan of the abdomen and pelvis with contrast because of the patient's vague history of abdominal pain. Patient doesn't have any significant tenderness my suspicion is low for spontaneous bacterial peritonitis. Patient is getting IV fluids which included this can urine patient had lactic acidosis on admission was on Lasix and Aldactone for cirrhosis related ascites. has elevated ammonia of 72 and patient was started on lactulose. 12/03/2020 Patient had a computed tomography scan of the abdomen which did not show any significant abnormality this. We'll order auto sounded the paracentesis and patient will be discharged after that. I do not have any repeat ammonia levels but clinically patient doesn't have any symptoms of hepatic encephalopathy. PHYSICAL EXAMINATION: GENERAL: The patient is alert and oriented x3, not in any acute distress. Well developed, well nourished. HEENT: Pupils are round and equally reacting to light. EOMI. No scleral icterus. No conjunctival pallor. Normocephalic, atraumatic. No pharyngeal erythema. No thyromegaly. CARDIOVASCULAR: S1 and S2 present. No murmurs, rubs, or gallops. PULMONARY: Chest is clear to auscultation, no wheezing or crackles. ABDOMEN: Distended with shifting dullness no significant tenderness in the anterior abdomen may be mild tenderness in the left CVA area normoactive bowel sounds. No palpable organomegaly. MUSCULOSKELETAL: No joint swelling or deformity. EXTREMITIES: No cyanosis, clubbing, or pedal edema. NEUROLOGICAL: Gross neurological examination did not reveal any focal deficits. SKIN: No rashes. Assessment and Plan Plan: -abdominal pain: CT of the abdomen is negative no evidence of significant intra- abdominal pathology except for ascites and cirrhosis paracentesis will be ordered and the patient will be discharged after that patient doesn't have any clinical evidence of spontaneous bacterial peritonitis -Ascites secondary to alcoholic cirrhosis -Lactic acidosis secondary to liver failure no evidence of sepsis at this time -Hyperammonemia secondary to cirrhosis patient will be continued on lactulose titrated for 2 bowel movements a day, typically patient doesn't have any symptoms of hepatic encephalopathy. Patient will be discharged on lactulose -Nausea vomiting probably secondary to gastritis will change the Protonix to twice a day -Hypokalemia potassium was be replaced -Coagulopathy secondary to cirrhosis -Thrombocytopenia secondary to cirrhosis and splenic sequestration of platelet s-history of DVT in the past, presently not on any anticoagulation. Patient present INR is 1.5 Patient Condition at Discharge: Fair Plan - Discharge Summary Discharge Rx Participant: No New Discharge Prescriptions: New Lactulose [Cephulac] 20 gm PO TID #300 ml Discontinued HYDROcodone/APAP 10-325MG [[place] 10-325] 1 tab PO DAILY PRN PRN Reason: Pain No Action Spironolactone [Aldactone] 50 mg PO BID Albuterol Inhaler [Ventolin Hfa Inhaler] 2 puff INHALATION RT-Q6H PRN PRN Reason: Shortness Of Breath Furosemide [Lasix] 20 mg PO DAILY 30 Days #30 tab Pantoprazole [Protonix] 40 mg PO DAILY 30 Days #30 tablet. Zolpidem Tartrate [Ambien] 10 mg PO HS PRN PRN Reason: Insomnia Nicotine 21Mg/24Hr Patch [Habitrol] 1 patch TRANSDERM DAILY Discharge Medication List Albuterol Inhaler [Ventolin Hfa Inhaler] 2 puff INHALATION RT-Q6H PRN 11/03/20 [History] Spironolactone [Aldactone] 50 mg PO BID 11/03/20 [History] Furosemide [Lasix] 20 mg PO DAILY 30 Days #30 tab 11/05/20 [Rx] Pantoprazole [Protonix] 40 mg PO DAILY 30 Days #30 tablet. 11/05/20 [Rx] Nicotine 21Mg/24Hr Patch [Habitrol] 1 patch TRANSDERM DAILY 12/02/20 [History] Zolpidem Tartrate [Ambien] 10 mg PO HS PRN 12/02/20 [History] Lactulose [Cephulac] 20 gm PO TID #300 ml 12/03/20 [Rx] Follow up Appointment(s)/Referral(s): Manuelito Zaragoza MD [Primary Care Provider] - 3 Days Bibiana Nguyen MD [STAFF PHYSICIAN] - 1 Week
[2020-12-03 10:55] VITALS: RESP 16
[2020-12-03 11:23] LABS: ALT 18 U/L (4-49); AST 49 U/L (17-59); African American GFR (CKD) >90 (>60 ml/min/1.73 sqM); Albumin 3.2 g/dL (3.5-5.0); Alkaline Phosphatase 152 U/L (38-126); Anion Gap 8 mmol/L; Blood Urea Nitrogen 5 mg/dL (9-20); Calcium 8.9 mg/dL (8.4-10.2); Carbon Dioxide 23 mmol/L (22-30); Chloride 107 mmol/L (98-107); Globulin 3.2 g/dL; Glucose 107 mg/dL (74-99); Non-African American GFR(CKD) >90 (>60 ml/min/1.73 sqM); Potassium 3.9 mmol/L (3.5-5.1); Sodium 138 mmol/L (137-145); Total Protein 6.4 g/dL (6.3-8.2)
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
--- NOTE | 2020-12-03 14:12 | P.PN ---
Subjective Progress Note Date: 12/03/20 Principal diagnosis: Alcoholic cirrhosis of the liver, ascites The patient was seen and examined lying in bed. He states he overall is feeling better. He has some nausea but no vomiting. He denies any abdominal pain. He is scheduled for a paracentesis status post CT of the abdomen which showed large amount of ascites. Objective - Vital Signs Vital signs: Vital Signs Temp 97.9 F 12/03/20 12:00 Pulse 90 12/03/20 12:05 Resp 16 12/03/20 12:05 BP 132/68 12/03/20 12:05 Pulse Ox 98 12/03/20 12:05 Intake & Output 12/02/20 12/03/20 12/03/20 18:59 06:59 18:59 Intake Total 200 Balance 200 Weight 90.718 kg Intake: Oral 200 Other: Voiding Method Toilet Toilet Toilet # Voids 3 1 - Exam General appearance: The patient is alert, oriented, in no acute distress. HET: Head is normocephalic and atraumatic. Conjunctiva pink. Sclera anicteric. Neck: Supple without lymphadenopathy. Abdomen: Soft, nontender, distended with bowel sounds. No guarding or rigidity. Extremities: Normal skin color and turgor. No pedal edema Neurological: No focal deficits. Alert and oriented 3. - Labs CBC & Chem 7: 12/02/20 05:42 12/03/20 10:29 Labs: Abnormal Lab Results - Last 24 Hours (Table) 12/02/20 12/03/20 12/03/20 Range/Units 14:12 10:29 10:29 BUN 5 L (9-20) mg/dL Glucose 107 H (74-99) mg/dL Total Bilirubin 5.0 H (0.2-1.3) mg/dL Alkaline Phosphatase 152 H (38-126) U/L Ammonia 33 H (<30) umol/L Albumin 3.2 L (3.5-5.0) g/dL Urine Protein 1+ H (Negative) Urine Bilirubin 1+ H (Negative) Urine Mucus Many H (None) /hpf Assessment and Plan (1) Alcoholic liver disease Narrative/Plan: The 32-year-old male with a known history of alcoholic cirrhosis of the liver with ascites who has been sober since January 2020. He presented with nausea and vomiting and abdominal pain to the emergency room. There were no acute findings on the computed tomography scan however patient did have ascites, small left pleural effusion, splenomegaly and gallbladder wall thickening with debris. He reports intermittent episodes of nausea and vomiting occurring for months with intermittent abdominal pain. Currently reporting the symptoms have improved. Has a known history of decompensated cirrhosis currently on diuretic therapy with Aldactone and Lasix at home. He also gets paracentesis every 2-3 weeks. Current Visit: Yes Status: Acute Code(s): K70.9 - ALCOHOLIC LIVER DISEASE, UNSPECIFIED SNOMED Code(s): 72807426 (2) Ascites Current Visit: Yes Status: Acute Code(s): R18.8 - OTHER ASCITES SNOMED Code(s): 937951512 (3) Transaminitis Current Visit: Yes Status: Acute Code(s): R74.01 - ELEVATION OF LEVELS OF LIVER TRANSAMINASE LEVELS SNOMED Code(s): 937422716 Plan: Supportive care Low-sodium diet Patient is scheduled for paracentesis today Protonix daily Antiemetics as needed Continue Aldactone and Lasix Continue follow-up with gastroenterology after discharge Continue alcohol abstinence If symptoms persist can consider EGD in the outpatient setting Thank you for this consultation Dr. Burt I agree with the dictator's note, documented as a scribe by Janis Coolye.
--- NOTE | 2020-12-03 14:58 | US ---
EXAMINATION TYPE: US paracentesis abd w/image DATE OF EXAM: 12/03/2020 COMPARISON: NONE HISTORY: Ascites. PROCEDURE: Maximal barrier technique was utilized. The skin overlying a suitable pocket of fluid was localized with ultrasound and the overlying skin was prepped and draped. Ultrasound was utilized with sterile technique. Lidocaine was used for local anesthesia and a skin zulay made with a scalpel. Catheter was advanced under direct ultrasound guidance into a suitable pocket of fluid and approximately 3.2 liter s of serous fluid were removed. Catheter was withdrawn and hemostasis achieved. There is no immedia te complication; the patient is discharged in stable condition. IMPRESSION: STATUS POST ULTRASOUND GUIDED PARACENTESIS FOR PALLIATION OF ASCITES. THIS PROCEDURE WA S PERFORMED BY THE UNDERSIGNED.
[2020-12-03 15:12] VITALS: TEMP 97.6
[2020-12-03 15:19] VITALS: BP 107/67; PULSE 87
[2020-12-03] MEDS ORDERED: PANTOPRAZOLE 40 MG TABLET PO SCH (21:00)
== END 2020-12-03 16:22 | disposition home or self-care (01) ==
LOC: EC 05:14 → 4SSUR 06:29 → INTOOBSV 06:29 → 4SSUR 07:27 → UNDODISIN 12-03 16:22
PROVIDERS: ADMIT Hospitalist; ATTEND Hospitalist
DX: K70.31 Alcoholic cirrhosis of liver with ascites (principal); E87.2 Acidosis; D68.4 Acquired coagulation factor deficiency; Y90.0 Blood alcohol level of less than 20 mg/100 ml; K70.11 Alcoholic hepatitis with ascites; D69.59 Other secondary thrombocytopenia; E87.6 Hypokalemia; K21.9 Gastro-esophageal reflux disease without esophagitis; I10 Essential (primary) hypertension; Z86.718 Personal history of other venous thrombosis and embolism; Z86.16 Personal history of COVID-19; Z90.89 Acquired absence of other organs; R11.2 Nausea with vomiting, unspecified; Z87.01 Personal history of pneumonia (recurrent); Z97.0 Presence of artificial eye; Z98.890 Other specified postprocedural states; Z83.3 Family history of diabetes mellitus; Z82.49 Family history of ischemic heart disease and other diseases of the circulatory system; Z82.3 Family history of stroke; Z79.899 Other long term (current) drug therapy; R16.1 Splenomegaly, not elsewhere classified; Z87.442 Personal history of urinary calculi; Z90.49 Acquired absence of other specified parts of digestive tract; Z87.19 Personal history of other diseases of the digestive system; Z87.828 Personal history of other (healed) physical injury and trauma; Z87.891 Personal history of nicotine dependence
CPT/HCPCS: 96376 ×2; 96361 ×2; 96375 ×2; 96374; 99285; 36415 ×2; 80053 ×2; 82140 ×2; 82150; 82550; 83605; 83690; 83735; 84132; 85025; 85610; 85730; 81001; 80320; 49083; 74177; G0378 ×2; S4990 ×2; J2270 ×2; J2405 ×2; C9113 ×2; Q9967; 99284

== ENCOUNTER 2021-02-08 12:18 | Day surgery (SDC) | payer OTHER ==
[2021-02-08 12:34] VITALS: BP 103/59; PULSE 82; RESP 16; TEMP 98.4
[2021-02-08] MEDS: ALBUMIN HUMAN 25% 50 ML in EMPTY BAG 1 BAG IVPB SCH (12:53)
--- NOTE | 2021-02-08 12:54 | US ---
EXAMINATION TYPE: US abdomen limited DATE OF EXAM: 02/08/2021 COMPARISON: CLINICAL HISTORY: R18.8. Scheduled for paracentesis. Check for fluid. All four quadrants scanned. Trace fluid seen adjacent to liver. No pocket seen for paracentesis. IMPRESSION: No sizable fluid collections are seen for percutaneous drainage.
== END 2021-02-08 12:45 | disposition home or self-care (01) ==
LOC: RADPROMAIN 12:18
PROVIDERS: ATTEND Internal Medicine Gastroenterology
DX: R18.8 Other ascites (principal)
CPT/HCPCS: 76705

== ENCOUNTER 2021-10-31 10:38 | Inpatient (IN) | payer OTHER ==
[2021-10-31] MEDS ORDERED: PANTOPRAZOLE 40 MG/10 ML VIAL IVP STA (12:56)
[2021-10-31] MEDS ORDERED: MORPHINE SULFATE 4 MG/ML SYRINGE IV STA (12:56)
[2021-10-31] MEDS ORDERED: SODIUM CHLORIDE 0.9% 1,000 ML IV STA (12:56)
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
[2021-10-31 13:58] LABS: Albumin 3.1 g/dL (3.5-5.0); Appearance,Urine Cloudy (Clear); Bilirubin,Urine Negative (Negative); Blood,Urine Negative (Negative); Calcium 8.3 mg/dL (8.4-10.2); Color,Urine Dark Yellow; Glucose,Urine (UA) Negative (Negative); Hyaline Casts,Urine 170 /lpf (0-2); Ketones,Urine Trace (Negative); Leukocyte Esterase,Urine Negative (Negative); Mucus,Urine Many /hpf; Nitrite,Urine Negative (Negative); PH, Urine 5.5 (5.0-8.0); Potassium 3.6 mmol/L (3.5-5.1); Protein,Urine 1+ (Negative); RBC,Urine 1 /hpf (0-5); Specific Gravity,Urine 1.025 (1.001-1.035); Squamous Epithelial Cell,Urine 1 /hpf (0-4); Total Bilirubin 1.3 mg/dL (0.2-1.3); Total Protein 5.8 g/dL (6.3-8.2); WBC,Urine 3 /hpf (0-5)
[2021-10-31 14:05] LABS: Basophils % (A) 0 %; Eosinophils # (A) 0.2 k/uL (0-0.7); Eosinophils % (A) 5 %; HCT 25.1 % (39.0-53.0); HGB 8.4 gm/dL (13.0-17.5); Hypochromasia Slight; Lymphocytes # (A) 0.9 k/uL (1.0-4.8); Lymphocytes % (A) 19 %; MCH 32.6 pg (25.0-35.0); MCHC 33.7 g/dL (31.0-37.0); MCV 96.8 fL (80.0-100.0); Mean Platelet Volume 9.5; Monocytes # (A) 0.3 k/uL (0-1.0); Monocytes % (A) 7 %; Neutrophils # (A) 3.1 k/uL (1.3-7.7); Neutrophils % (A) 66 %; Poikilocytosis Slight; RBC 2.59 m/uL (4.30-5.90); RDW 14.6 % (11.5-15.5); WBC 4.6 k/uL (3.8-10.6)
[2021-10-31 14:27] LABS: Platelet Count 69 k/uL (150-450)
--- NOTE | 2021-10-31 14:27 | CT ---
EXAMINATION TYPE: CT abdomen pelvis w con DATE OF EXAM: 10/31/2021 COMPARISON: 12/02/2020 HISTORY: Abdominal pain CT DLP: 1283.4 mGycm CONTRAST: CT scan of the abdomen and pelvis is performed without Oral Contrast and with IV Contrast, patient in jected with 100 ml mL of Isovue 300. FINDINGS: LUNG BASES-: No visible nodule. No infiltrate. LIVER/GB: Again noted is evidence of cirrhotic liver disease with micronodular appearance seen. Varic es are identified as well as moderate ascites. No intrahepatic lesions are detected. Layering gallsto diana are seen within the gallbladder. PANCREAS: No inflammation. No distinct mass. SPLEEN: Splenomegaly measuring 17.3 cm craniocaudal dimension. No lesion seen. ADRENALS: No nodule. No thickening. KIDNEYS/BLADDER: No hydronephrosis. No nephrolithiasis. No distinct renal mass. Urinary bladder g rossly unremarkable. BOWEL: Normal appendix. Normal bowel caliber. No inflammation. GENITAL ORGANS: No gross abnormality. LYMPH NODES: No greater than 1cm abdominal or pelvic lymph nodes are appreciated. AORTA: No significant abnormality. OSSEOUS STRUCTURES: No significant abnormality is seen. OTHER: No significant additional abnormality is seen. IMPRESSION: 1. Again noted are features of cirrhotic liver disease with hepatosplenomegaly, varices and ascites. 2. Small left-sided effusion. 3. Layering gallstones.
[2021-10-31] MEDS ORDERED: MORPHINE SULFATE 4 MG/ML SYRINGE IVP STA (14:37)
[2021-10-31] MEDS ORDERED: NALOXONE 0.4 MG/ML 1 ML VIAL IV PRN (15:28)
[2021-10-31] MEDS ORDERED: traMADol 50 MG TAB PO PRN (15:45)
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
[2021-10-31] MEDS: SODIUM CHLORIDE 0.9% 1,000 ML IV SCH (16:22)
[2021-10-31] MEDS: NICOTINE 21MG/24HR PATCH TRANSDERM SCH (20:13)
[2021-10-31] MEDS: MORPHINE SULFATE 4 MG/ML SYRINGE IV PRN (20:13)
[2021-10-31 21:11] LABS: INR 3.5 (<1.2); Prothrombin Time 33.3 sec (9.0-12.0)
[2021-11-01] MEDS: MORPHINE SULFATE 4 MG/ML SYRINGE IV PRN ×6 (00:24→21:39)
[2021-11-01] MEDS: SODIUM CHLORIDE 0.9% 1,000 ML IV SCH (05:33)
[2021-11-01] MEDS: PANTOPRAZOLE 40 MG/10 ML VIAL IV SCH (08:35)
[2021-11-01] MEDS: NICOTINE 21MG/24HR PATCH TRANSDERM SCH (08:35)
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
[2021-11-01] MEDS ORDERED: FUROSEMIDE 40 MG TAB PO SCH (09:00)
[2021-11-01 09:59] LABS: INR 1.16 (0.90-1.11)
[2021-11-01 10:02] LABS: HCT 24.7 % (39.6-50.0); HGB 7.6 g/dL (13.0-17.0); MCH 30.5 pg (27.0-32.0); MCHC 30.8 g/dL (32.0-37.0); MCV 99.2 fL (80.0-97.0); Mean Platelet Volume 10.9 fL (9.5-12.2); Platelet Count 71 X 10*3/uL (140-440); RBC 2.49 X 10*6/uL (4.40-5.60); RDW 15.1 % (11.5-14.5)
[2021-11-01 10:56] LABS: African American GFR (CKD) 124.3 (60.0-200.0); Albumin 3.2 g/dL (3.8-4.9); Albumin/Globulin Ratio 1.78 (1.60-3.17); Anion Gap 10.8 mmol/L (10.00-18.00); BUN/Creat Ratio 17.67 Ratio (12.00-20.00); Blood Urea Nitrogen 15.9 mg/dL (9.0-27.0); Carbon Dioxide 22.2 mmol/L (20.0-27.5); Globulin 1.8 g/dL (1.6-3.3); Non-African American GFR(CKD) 107.2 (60.0-200.0); Potassium 3.6 mmol/L (3.5-5.5); Total Bilirubin 1.1 mg/dL (0.30-1.20)
[2021-11-01 11:36] LABS: Basophils # (A) 0.01 X 10*3/uL (0.00-0.10); Basophils % (A) 0.3 %; Eosinophils # (A) 0.27 X 10*3/uL (0.04-0.35); Eosinophils % (A) 8.4 %; Lymphocytes # (A) 0.93 X 10*3/uL (0.90-5.00); Lymphocytes % (A) 29.1 %; Monocytes # (A) 0.27 X 10*3/uL (0.20-1.00); Monocytes % (A) 8.4 %; Neutrophils # (A) 1.71 X 10*3/uL (1.80-7.70); Neutrophils % (A) 53.5 %
[2021-11-01] MEDS ORDERED: Potassium Replacement Protocol 1 EACH MISC MISCELLANE PRN (11:51)
[2021-11-01] MEDS ORDERED: POTASSIUM CHLORIDE ER 20 MEQ TAB.ER PO SCH (12:00)
[2021-11-02] MEDS: MORPHINE SULFATE 4 MG/ML SYRINGE IV PRN ×5 (04:09→23:23)
--- NOTE | 2021-11-02 08:35 | P.PN ---
Subjective Progress Note Date: 11/01/21 41-year-old pleasant male came in with complains of some abdominal discomfort and feels like he has ascites and on and of lower GI bleed last bleeding was about 3 days ago had a normal bowel movement today. 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 Patient does take Lasix at home. Patient is also found to have mildly elevated serum creatinine of 1.5 baseline around the 0.9. Patient is mildly hyponatremic. Patient doesn't have any significant ascites on exam. And also has some a complaints of epistaxis hematuria. Patient hemoglobin did go down by 2 points compared to his previous hemoglobin level. 11/01/2021 Patient is seen and evaluated this morning and follow-up continues with some mild abdominal discomfort although states is less severe than yesterday. Patient states he did have a bowel movement this morning with bright red blood and Gen. surgery consulted for further evaluation of possible GI bleed. Hemoglobin is 7.6 this morning and platelets are 71, sodium is 139, potassium 3.6, creatinine improved at 0.9. Patient is continued on gentle IV hydration will continue. patient does follow with GI services in the outpatient setting. Review of systems: Constitutional: No reports of fatigue, fever, or chills Cardiovascular: No reports of chest pain or palpitations Respiratory: No reports of shortness of breath or cough GI: No reports of nausea, vomiting, or diarrhea him a reports a bloody bowel movement this morning bright red blood scan amount : No reports of dysuria or retention Neurovascular: No reports of weakness or numbness All medications have been reviewed Active Medications Miscellaneous Information (Potassium Replacement Protocol 1 Each Misc) 1 each MISCELLANE DAILY PRN; Protocol PRN Reason: Per Protocol Morphine Sulfate (Morphine Sulfate 4 Mg/Ml Syringe) 4 mg IV Q4HR PRN PRN Reason: Severe Pain Last Admin: 11/02/21 04:09 Dose: 4 mg Documented by: Naloxone HCl (Naloxone 0.4 Mg/Ml 1 Ml Vial) 0.2 mg IV Q2M PRN PRN Reason: Opioid Reversal Nicotine (Nicotine 21mg/24hr Patch) 1 patch TRANSDERM DAILY [facility] Last Admin: 11/01/21 08:35 Dose: 1 patch Documented by: Pantoprazole Sodium (Pantoprazole 40 Mg/10 Ml Vial) 40 mg IV DAILY [facility] Last Admin: 11/01/21 08:35 Dose: 40 mg Documented by: PHYSICAL EXAMINATION: GENERAL: The patient is alert and oriented x3, not in any acute distress. Well developed, well nourished. HEENT: Pupils are round and equally reacting to light. EOMI. No scleral icterus. No conjunctival pallor. Normocephalic, atraumatic. No pharyngeal erythema. No thyromegaly. CARDIOVASCULAR: S1 and S2 present. No murmurs, rubs, or gallops. PULMONARY: Chest is clear to auscultation, no wheezing or crackles. ABDOMEN: Soft, nontender, nondistended, normoactive bowel sounds. No palpable organomegaly. MUSCULOSKELETAL: No joint swelling or deformity. EXTREMITIES: No cyanosis, clubbing, or pedal edema. NEUROLOGICAL: Gross neurological examination did not reveal any focal deficits. SKIN: No rashes. Assessment and plan: -Lower GI bleed most probably secondary to his history of cirrhosis. Possible component of NSAID use as well the patient did have elevated INR most likely secondary cirrhosis, general surgery consulted and evaluated recommend conservative management and fluid restrictions for management of ascites and continue to follow with GI in the outpatient setting -hematuria probably secondary to cirrhosis and elevated INR, improved -History of DVT in the past not on any anticoagulation at this time -Hypertension -acute renal failure secondary to excessive diuresis hold off on diuretics, improved -DVT prophylaxis: No pharmacologic DVT prophylaxis because of GI bleed Plan: General surgery evaluated the patient recommending conservative management and GI services to continue to follow in the outpatient setting as there is no GI coverage at this time. Patient did have 1 small episode of bright red blood noted in the bowel movement this morning and will continue to monitor. Hemoglobin is stable at 7.6 and will repeat a.m. labs. Continue with clear liquids for now and will advance as tolerated. Possible discharge in 24 hours. Objective - Vital Signs Vital signs: Vital Signs Temp 97.4 F L 11/01/21 07:00 Pulse 87 11/01/21 08:00 Resp 16 11/01/21 08:00 BP 118/70 11/01/21 07:00 Pulse Ox 96 11/01/21 07:00 Intake & Output 10/31/21 11/01/21 11/01/21 18:59 06:59 18:59 Weight 90.718 kg Other: # Voids 1 # Bowel Movements 1 - Labs CBC & Chem 7: 11/01/21 06:02 11/01/21 06:02 Labs: Abnormal Lab Results - Last 24 Hours (Table) 10/31/21 10/31/21 10/31/21 Range/Units 13: 13:27 13:27 RBC 2.59 L (4.30-5.90) m/uL Hgb 8.4 L (13.0-17.5) gm/dL Hct 25.1 L (39.0-53.0) % Plt Count 69 L (150-450) k/uL Lymphocytes # 0.9 L (1.0-4.8) k/uL PT (9.0-12.0) sec INR (<1.2) APTT 59.0 H (22.0-30.0) sec Sodium (137-145) mmol/L BUN (9-20) mg/dL Creatinine (0.66-1.25) mg/dL Calcium (8.4-10.2) mg/dL Alkaline Phosphatase (38-126) U/L Total Protein (6.3-8.2) g/dL Albumin (3.5-5.0) g/dL Urine Protein 1+ H (Negative) Urine Ketones Trace H (Negative) Hyaline Casts 170 H (0-2) /lpf Urine Mucus Many H (None) /hpf 10/31/21 10/31/21 Range/Units 13: 13:57 RBC (4.30-5.90) m/uL Hgb (13.0-17.5) gm/dL Hct (39.0-53.0) % Plt Count (150-450) k/uL Lymphocytes # (1.0-4.8) k/uL PT 33.3 H (9.0-12.0) sec INR 3.5 H (<1.2) APTT (22.0-30.0) sec Sodium 133 L (137-145) mmol/L BUN 21 H (9-20) mg/dL Creatinine 1.41 H (0.66-1.25) mg/dL Calcium 8.3 L (8.4-10.2) mg/dL Alkaline Phosphatase 130 H (38-126) U/L Total Protein 5.8 L (6.3-8.2) g/dL Albumin 3.1 L (3.5-5.0) g/dL Urine Protein (Negative) Urine Ketones (Negative) Hyaline Casts (0-2) /lpf Urine Mucus (None) /hpf
[2021-11-02] MEDS: NICOTINE 21MG/24HR PATCH TRANSDERM SCH (08:58)
[2021-11-02] MEDS: PANTOPRAZOLE 40 MG/10 ML VIAL IV SCH (08:58)
[2021-11-02 09:13] LABS: Basophils % (A) 0 %; Eosinophils # (A) 0.3 k/uL (0-0.7); Eosinophils % (A) 8 %; HCT 26.3 % (39.0-53.0); HGB 8.4 gm/dL (13.0-17.5); Hypochromasia Marked; Lymphocytes # (A) 0.9 k/uL (1.0-4.8); Lymphocytes % (A) 26 %; MCHC 31.9 g/dL (31.0-37.0); MCV 100.2 fL (80.0-100.0); Macrocytosis Slight; Mean Platelet Volume 9.1; Monocytes # (A) 0.2 k/uL (0-1.0); Monocytes % (A) 6 %; Neutrophils % (A) 57 %; Poikilocytosis Slight; RBC 2.62 m/uL (4.30-5.90); RDW 15.1 % (11.5-15.5); WBC 3.5 k/uL (3.8-10.6)
[2021-11-02 09:14] LABS: Platelet Count 85 k/uL (150-450)
--- NOTE | 2021-11-02 12:34 | P.PN ---
Progress Note - Text Progress Note Date: 11/01/21 Patient states he feels well. He still has had some minimal rectal bleeding. His hemoglobin is 7.6. On exam vitals are stable. Abdomen soft. Patient will be observed. We will continue to watch him closely. She may require endoscopy has his GI bleed does not stop.
--- NOTE | 2021-11-02 12:35 | P.PN ---
Progress Note - Text Progress Note Date: 11/02/21 Patient states he feels better. His he will was 8.4. He still has had some minimal rectal bleeding history. On exam vessels are stable. Abdomen soft. Patient's will have his diet advanced to full liquid diet. We will observe him.
--- NOTE | 2021-11-02 23:56 | P.PN ---
Subjective Progress Note Date: 11/02/21 41-year-old pleasant male came in with complains of some abdominal discomfort and feels like he has ascites and on and of lower GI bleed last bleeding was about 3 days ago had a normal bowel movement today. 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 Patient does take Lasix at home. Patient is also found to have mildly elevated serum creatinine of 1.5 baseline around the 0.9. Patient is mildly hyponatremic. Patient doesn't have any significant ascites on exam. And also has some a complaints of epistaxis hematuria. Patient hemoglobin did go down by 2 points compared to his previous hemoglobin level. 11/01/2021 Patient is seen and evaluated this morning and follow-up continues with some mild abdominal discomfort although states is less severe than yesterday. Patient states he did have a bowel movement this morning with bright red blood and Gen. surgery consulted for further evaluation of possible GI bleed. Hemoglobin is 7.6 this morning and platelets are 71, sodium is 139, potassium 3.6, creatinine improved at 0.9. Patient is continued on gentle IV hydration will continue. patient does follow with GI services in the outpatient setting. 11/02/2021 Patient is seen in follow up today and states his abdominal is slightly improved and tolerating clear liquids and asking for advance in diet. Patient states he had some blood in the stool again today. Hemoglobin is stable at 8.4 today and general surgery following and recommending advancing diet and monitor closely for tolerance and any further worsening abdominal pain overnight. Will repeat cbc in the morning Review of systems: Constitutional: No reports of fatigue, fever, or chills Cardiovascular: No reports of chest pain or palpitations Respiratory: No reports of shortness of breath or cough GI: No reports of nausea, vomiting, or diarrhea, reports a bloody bowel movement this morning again : No reports of dysuria or retention Neurovascular: No reports of weakness or numbness All medications have been reviewed Active Medications Miscellaneous Information (Potassium Replacement Protocol 1 Each Misc) 1 each MISCELLANE DAILY PRN; Protocol PRN Reason: Per Protocol Morphine Sulfate (Morphine Sulfate 4 Mg/Ml Syringe) 4 mg IV Q4HR PRN PRN Reason: Severe Pain Last Admin: 11/02/21 23:23 Dose: 4 mg Documented by: Naloxone HCl (Naloxone 0.4 Mg/Ml 1 Ml Vial) 0.2 mg IV Q2M PRN PRN Reason: Opioid Reversal Nicotine (Nicotine 21mg/24hr Patch) 1 patch TRANSDERM DAILY [facility] Last Admin: 11/02/21 08:58 Dose: 1 patch Documented by: Pantoprazole Sodium (Pantoprazole 40 Mg/10 Ml Vial) 40 mg IV DAILY [facility] Last Admin: 11/02/21 08:58 Dose: 40 mg Documented by: PHYSICAL EXAMINATION: GENERAL: The patient is alert and oriented x3, not in any acute distress. Well developed, well nourished. HEENT: Pupils are round and equally reacting to light. EOMI. No scleral icterus. No conjunctival pallor. Normocephalic, atraumatic. No pharyngeal erythema. No thyromegaly. CARDIOVASCULAR: S1 and S2 present. No murmurs, rubs, or gallops. PULMONARY: Chest is clear to auscultation, no wheezing or crackles. ABDOMEN: Soft, nontender, nondistended, normoactive bowel sounds. No palpable organomegaly. MUSCULOSKELETAL: No joint swelling or deformity. EXTREMITIES: No cyanosis, clubbing, or pedal edema. NEUROLOGICAL: Gross neurological examination did not reveal any focal deficits. SKIN: No rashes. Assessment and plan: -Lower GI bleed most probably secondary to his history of cirrhosis. Possible component of NSAID use as well the patient did have elevated INR most likely secondary cirrhosis, general surgery recommend conservative management and advance diet and observe overnight for any further bleeding and abdominal pain -hematuria probably secondary to cirrhosis and elevated INR, improved -History of DVT in the past not on any anticoagulation at this time -Hypertension -acute renal failure secondary to excessive diuresis hold off on diuretics, improved -DVT prophylaxis: No pharmacologic DVT prophylaxis because of GI bleed Plan: General surgery evaluated the patient recommending conservative management and GI services to continue to follow in the outpatient setting as there is no GI coverage at this time. Patient did have another small amount of bright red blood noted in the bowel movement this morning and will continue to monitor. Hemoglobin is stable at 8.4 and will repeat a.m. labs. Continue to advance diet as tolerated. Possible discharge in 24 hours. Objective - Vital Signs Vital signs: Vital Signs Temp 98.1 F 11/02/21 03:25 Pulse 70 11/02/21 03:25 Resp 16 11/02/21 03:25 BP 94/65 11/02/21 03:25 Pulse Ox 96 11/02/21 03:25 Intake & Output 11/01/21 11/02/21 11/02/21 18:59 06:59 18:59 Intake Total 936 Balance 936 Intake: Oral 936 Other: Voiding Method Toilet # Voids 1 # Bowel Movements 1 - Labs CBC & Chem 7: 11/02/21 08:42 11/01/21 06:02 Labs: Abnormal Lab Results - Last 24 Hours (Table) 11/01/21 11/01/21 11/01/21 Range/Units 06:02 06:02 06:02 WBC 3.20 L (4.50-10.00) X 10*3/uL RBC 2.49 L (4.40-5.60) X 10*6/uL Hgb 7.6 L (13.0-17.0) g/dL Hct 24.7 L (39.6-50.0) % MCV 99.2 H (80.0-97.0) fL MCHC 30.8 L (32.0-37.0) g/dL RDW 15.1 H (11.5-14.5) % Plt Count 71 L (140-440) X 10*3/uL Plt Count Comment DECREASED A Neutrophils # 1.71 L (1.80-7.70) X 10*3/uL PT 13.0 H (9.9-11.9) sec INR 1.16 H (0.90-1.11) Calcium 8.0 L (8.7-10.3) mg/dL Total Protein 5.0 L (6.2-8.2) g/dL Albumin 3.2 L (3.8-4.9) g/dL
[2021-11-03] MEDS: MORPHINE SULFATE 4 MG/ML SYRINGE IV PRN ×5 (03:17→22:47)
[2021-11-03 06:44] LABS: Basophils % (A) 0 %; Eosinophils # (A) 0.2 k/uL (0-0.7); Eosinophils % (A) 8 %; HCT 23.3 % (39.0-53.0); HGB 7.5 gm/dL (13.0-17.5); Hypochromasia Moderate; Lymphocytes # (A) 0.8 k/uL (1.0-4.8); Lymphocytes % (A) 33 %; MCH 31.5 pg (25.0-35.0); MCHC 32.3 g/dL (31.0-37.0); MCV 97.5 fL (80.0-100.0); Mean Platelet Volume 10.1; Monocytes # (A) 0.2 k/uL (0-1.0); Monocytes % (A) 9 %; Neutrophils # (A) 1.2 k/uL (1.3-7.7); Neutrophils % (A) 47 %; Platelet Count 66 k/uL (150-450); Poikilocytosis Slight; RBC 2.39 m/uL (4.30-5.90); RDW 14.4 % (11.5-15.5); WBC 2.5 k/uL (3.8-10.6)
[2021-11-03] MEDS: PANTOPRAZOLE 40 MG/10 ML VIAL IV SCH (07:57)
[2021-11-03] MEDS: NICOTINE 21MG/24HR PATCH TRANSDERM SCH (07:57)
--- NOTE | 2021-11-03 11:03 | US ---
EXAMINATION TYPE: US abdomen limited DATE OF EXAM: 11/03/2021 COMPARISON: 10/31/2021 CLINICAL HISTORY: hx of cirrhosis with ascites and abd distention. Small amount of ascites seen superior to the liver, RLQ, and LUQ. Incidental gallstones noted. IMPRESSION: 1. There is only small amount of ascites. 2. Incidental note is made of multiple gallstones.
--- NOTE | 2021-11-03 13:14 | P.PN ---
Progress Note - Text Progress Note Date: 11/03/21 patient denies any significant rectal bleeding. His hemoglobin went from 8.4 to 7.5. He states he wants to go home. On exam vitals are stable. Abdomen soft. GI bleed. Patient should be observed. If he has significant bleeding he will undergo endoscopy.
--- NOTE | 2021-11-03 23:59 | P.PN ---
Subjective Progress Note Date: 11/03/21 41-year-old pleasant male came in with complains of some abdominal discomfort and feels like he has ascites and on and of lower GI bleed last bleeding was about 3 days ago had a normal bowel movement today. 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 Patient does take Lasix at home. Patient is also found to have mildly elevated serum creatinine of 1.5 baseline around the 0.9. Patient is mildly hyponatremic. Patient doesn't have any significant ascites on exam. And also has some a complaints of epistaxis hematuria. Patient hemoglobin did go down by 2 points compared to his previous hemoglobin level. 11/01/2021 Patient is seen and evaluated this morning and follow-up continues with some mild abdominal discomfort although states is less severe than yesterday. Patient states he did have a bowel movement this morning with bright red blood and Gen. surgery consulted for further evaluation of possible GI bleed. Hemoglobin is 7.6 this morning and platelets are 71, sodium is 139, potassium 3.6, creatinine improved at 0.9. Patient is continued on gentle IV hydration will continue. patient does follow with GI services in the outpatient setting. 11/02/2021 Patient is seen in follow up today and states his abdominal is slightly improved and tolerating clear liquids and asking for advance in diet. Patient states he had some blood in the stool again today. Hemoglobin is stable at 8.4 today and general surgery following and recommending advancing diet and monitor closely for tolerance and any further worsening abdominal pain overnight. Will repeat cbc in the morning Patient is evaluated today and continues with some blood noted in the stool although less severe. Patient feels distended and has been off diuretics for his ascites and will order abdominal ultrasound. Patient is hungry and requesting advance in diet. Hemoglobin is 7.5 today. general surgery following and recommending close observation of any further bleeding with possible endoscopy if persists. Review of systems: Constitutional: No reports of fatigue, fever, or chills Cardiovascular: No reports of chest pain or palpitations Respiratory: No reports of shortness of breath or cough GI: No reports of nausea, vomiting, or diarrhea, reports a blood in the bowel movement, less in amount : No reports of dysuria or retention Neurovascular: No reports of weakness or numbness All medications have been reviewed Active Medications Miscellaneous Information (Potassium Replacement Protocol 1 Each Misc) 1 each MISCELLANE DAILY PRN; Protocol PRN Reason: Per Protocol Morphine Sulfate (Morphine Sulfate 4 Mg/Ml Syringe) 4 mg IV Q4HR PRN PRN Reason: Severe Pain Last Admin: 11/03/21 22:47 Dose: 4 mg Documented by: Naloxone HCl (Naloxone 0.4 Mg/Ml 1 Ml Vial) 0.2 mg IV Q2M PRN PRN Reason: Opioid Reversal Nicotine (Nicotine 21mg/24hr Patch) 1 patch TRANSDERM DAILY [facility] Last Admin: 11/03/21 07:57 Dose: 1 patch Documented by: Pantoprazole Sodium (Pantoprazole 40 Mg/10 Ml Vial) 40 mg IV DAILY [facility] Last Admin: 11/03/21 07:57 Dose: 40 mg Documented by: PHYSICAL EXAMINATION: GENERAL: The patient is alert and oriented x3, not in any acute distress. Well developed, well nourished. HEENT: Pupils are round and equally reacting to light. EOMI. No scleral icterus. No conjunctival pallor. Normocephalic, atraumatic. No pharyngeal erythema. No thyromegaly. CARDIOVASCULAR: S1 and S2 present. No murmurs, rubs, or gallops. PULMONARY: Chest is clear to auscultation, no wheezing or crackles. ABDOMEN: Soft, nontender, nondistended, normoactive bowel sounds. No palpable organomegaly. MUSCULOSKELETAL: No joint swelling or deformity. EXTREMITIES: No cyanosis, clubbing, or pedal edema. NEUROLOGICAL: Gross neurological examination did not reveal any focal deficits. SKIN: No rashes. Assessment and plan: -Lower GI bleed most probably secondary to his history of cirrhosis. Possible component of NSAID use as well the patient did have elevated INR most likely secondary cirrhosis, general surgery recommend conservative management and advance diet and observe overnight for any further bleeding and abdominal pain, further advance diet to low fiber -hematuria probably secondary to cirrhosis and elevated INR, improved -History of DVT in the past not on any anticoagulation at this time -Hypertension -acute renal failure secondary to excessive diuresis hold off on diuretics, improved -DVT prophylaxis: No pharmacologic DVT prophylaxis because of GI bleed Plan: General surgery evaluated the patient recommending conservative management and GI services to continue to follow in the outpatient setting as there is no GI coverage at this time. Patient did have another small amount of bright red blood noted in the bowel movement this morning and will continue to monitor. Hemoglobin is stable at 7.5 and will repeat a.m. labs. Continue to advance diet as tolerated. Abdominal ultrasound ordered for distention and to assess for ascites with possible paracentesis. Ultrasound shows minimal ascites. Possible discharge in 24 hours. Objective - Vital Signs Vital signs: Vital Signs Temp 98.2 F 11/03/21 15:00 Pulse 89 11/03/21 15:00 Resp 18 11/03/21 15:00 BP 117/66 11/03/21 15:00 Pulse Ox 99 11/03/21 15:00 Intake & Output 11/02/21 11/03/21 11/03/21 18:59 06:59 18:59 Intake Total 716 420 Balance 716 420 Intake: Oral 716 420 Other: Voiding Method Toilet Toilet # Voids 3 1 # Bowel Movements 1 - Labs CBC & Chem 7: 11/03/21 06:17 11/01/21 06:02 Labs: Abnormal Lab Results - Last 24 Hours (Table) 11/03/21 Range/Units 06:17 WBC 2.5 L (3.8-10.6) k/uL RBC 2.39 L (4.30-5.90) m/uL Hgb 7.5 L (13.0-17.5) gm/dL Hct 23.3 L (39.0-53.0) % Plt Count 66 L (150-450) k/uL Neutrophils # 1.2 L (1.3-7.7) k/uL Lymphocytes # 0.8 L (1.0-4.8) k/uL
[2021-11-04] MEDS: MORPHINE SULFATE 4 MG/ML SYRINGE IV PRN ×2 (03:02→07:31)
[2021-11-04 06:14] LABS: Basophils % (A) 0 %; Eosinophils # (A) 0.2 k/uL (0-0.7); Eosinophils % (A) 7 %; HCT 24.8 % (39.0-53.0); Hypochromasia Moderate; Lymphocytes # (A) 0.9 k/uL (1.0-4.8); Lymphocytes % (A) 30 %; MCH 31.3 pg (25.0-35.0); MCHC 32.1 g/dL (31.0-37.0); MCV 97.4 fL (80.0-100.0); Mean Platelet Volume 9.4; Monocytes # (A) 0.2 k/uL (0-1.0); Monocytes % (A) 7 %; Neutrophils # (A) 1.6 k/uL (1.3-7.7); Neutrophils % (A) 53 %; Poikilocytosis Slight; RBC 2.54 m/uL (4.30-5.90); RDW 14.2 % (11.5-15.5)
[2021-11-04 06:15] LABS: Platelet Count 68 k/uL (150-450)
[2021-11-04] MEDS: PANTOPRAZOLE 40 MG/10 ML VIAL IV SCH (07:32)
[2021-11-04] MEDS: NICOTINE 21MG/24HR PATCH TRANSDERM SCH (07:32)
[2021-11-04 07:59] VITALS: BP 105/64; PULSE 87; RESP 18; TEMP 98
--- NOTE | 2021-11-05 01:16 | P.DS ---
Providers Date of admission: 11/03/21 07:38 Expected date of discharge: 11/04/21 Attending physician: Rayna White Consults: 10/31/21 15:47 Consult Physician Routine Consulting Provider: Lowell Quan Consult Reason/Comments: Lower GI bleed Do you want consulting provider notified?: Yes Primary care physician: Mila Billings Hospital Course: Final Diagnosis -Lower GI bleed most probably secondary to his history of cirrhosis. Possible component of NSAID use as well the patient did have elevated INR most likely secondary cirrhosis -hematuria probably secondary to cirrhosis and elevated INR, improved -History of DVT in the past not on any anticoagulation at this time -Hypertension -acute renal failure secondary to excessive diuresis hold off on diuretics, im proved -DVT prophylaxis: No pharmacologic DVT prophylaxis because of GI bleed Discharge disposition Patient is being discharged in a stable condition with guarded prognosis to home. Patient will follow-up with her pcp Dr. Zaragoza in the outpatient setting upon discharge. Patient is to also to follow up with GI DR. Nguyen as scheduled. Total time taken is greater than 35 minutes. Hospital course 41-year-old pleasant male came in with complains of some abdominal discomfort and feels like he has ascites and on and of lower GI bleed last bleeding was about 3 days ago had a normal bowel movement today. 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 Patient does take Lasix at home. Patient is also found to have mildly elevated serum creatinine of 1.5 baseline around the 0.9. Patient is mildly hyponatremic. Patient doesn't have any significant ascites on exam. And also has some a complaints of epistaxis hematuria. Patient hemoglobin did go down by 2 points compared to his previous hemoglobin level. 11/01/2021 Patient is seen and evaluated this morning and follow-up continues with some mild abdominal discomfort although states is less severe than yesterday. Patient states he did have a bowel movement this morning with bright red blood and Gen. surgery consulted for further evaluation of possible GI bleed. Hemoglobin is 7.6 this morning and platelets are 71, sodium is 139, potassium 3.6, creatinine improved at 0.9. Patient is continued on gentle IV hydration will continue. patient does follow with GI services in the outpatient setting. 11/02/2021 Patient is seen in follow up today and states his abdominal is slightly improved and tolerating clear liquids and asking for advance in diet. Patient states he had some blood in the stool again today. Hemoglobin is stable at 8.4 today and general surgery following and recommending advancing diet and monitor closely for tolerance and any further worsening abdominal pain overnight. Will repeat cbc in the morning Patient is evaluated today and continues with some blood noted in the stool although less severe. Patient feels distended and has been off diuretics for his ascites and will order abdominal ultrasound. Patient is hungry and requesting advance in diet. Hemoglobin is 7.5 today. general surgery following and recommending close observation of any further bleeding with possible endoscopy if persists. 11/04/2021 Patient is seen today in follow up and feeling better. Patient tolerating diet and will continue and slowly advance as tolerated. Patient evaluated and followed by surgery as there was no GI coverage this week and recommend close outpatient follow up with DR. Nguyen in the outpatient setting. Continue current diet and advance slowly as tolerated. Hemoglobin is stable at 8 today. Recommend close outpatient follow up with labs. On exam vital signs are stable. Cardio S1, S2 are muffled. Respiratory system shows diminished breath sounds at the bases with no wheezing or rhonchi noted. Abdomen is soft and nontender. Nervous system shows no focal deficits. PHYSICAL EXAMINATION: GENERAL: The patient is alert and oriented x3, not in any acute distress. Well developed, well nourished. HEENT: Pupils are round and equally reacting to light. EOMI. No scleral icterus. No conjunctival pallor. Normocephalic, atraumatic. No pharyngeal erythema. No thyromegaly. CARDIOVASCULAR: S1 and S2 present. No murmurs, rubs, or gallops. PULMONARY: Chest is clear to auscultation, no wheezing or crackles. ABDOMEN: Soft, nontender, nondistended, normoactive bowel sounds. No palpable organomegaly. MUSCULOSKELETAL: No joint swelling or deformity. EXTREMITIES: No cyanosis, clubbing, or pedal edema. NEUROLOGICAL: Gross neurological examination did not reveal any focal deficits. SKIN: No rashes. Please refer to medication reconciliation sheet for a list of medications. Patient Condition at Discharge: Good Plan - Discharge Summary Discharge Rx Participant: No New Discharge Prescriptions: New Nicotine 21Mg/24Hr Patch [Habitrol] 1 patch TRANSDERM DAILY #30 patch HYDROcodone/APAP 5-325MG [[place] 5-325] 1 tab PO Q6HR PRN 3 Days #9 tab PRN Reason: Pain Continue Spironolactone [Aldactone] 50 mg PO DAILY Pantoprazole [Protonix] 40 mg PO DAILY 30 Days #30 tablet. Diclofenac Sodium [Voltaren] 75 mg PO BID Tadalafil [Cialis] 5 mg PO DAILY PRN PRN Reason: ED Furosemide [Lasix] 40 mg PO DAILY Discontinued Levofloxacin [Levaquin] 500 mg PO HS traMADol HCL 50 mg PO BID PRN PRN Reason: Pain Discharge Medication List Spironolactone [Aldactone] 50 mg PO DAILY 11/03/20 [History] Pantoprazole [Protonix] 40 mg PO DAILY 30 Days #30 tablet. 11/05/20 [Rx] Diclofenac Sodium [Voltaren] 75 mg PO BID 10/31/21 [History] Furosemide [Lasix] 40 mg PO DAILY 10/31/21 [History] Tadalafil [Cialis] 5 mg PO DAILY PRN 10/31/21 [History] Nicotine 21Mg/24Hr Patch [Habitrol] 1 patch TRANSDERM DAILY #30 patch 11/03/21 [Rx] HYDROcodone/APAP 5-325MG [[place] 5-325] 1 tab PO Q6HR PRN 3 Days #9 tab 11/04/21 [Rx] Follow up Appointment(s)/Referral(s): Manuelito Zaragoza MD [Primary Care Provider] - 1-2 days Bibiana Nguyen MD [STAFF PHYSICIAN] - 1 Week Patient Instructions/Handouts: Ascites (DC) Activity/Diet/Wound Care/Special Instructions: Activity limited until follow up follow up with GI in 1 week continue current diet and advance slowly as tolerated avoid all alcohol repeat cbc, bmp in 2-3 days and then resume lasix and aldactone after follow up with GI Discharge Disposition: HOME SELF-CARE
== END 2021-11-04 15:12 | disposition home or self-care (01) | DRG 378 ==
LOC: EC 10:38 → 6NMEDSUR 15:37 → OBSVTOIN 11-03 07:38
PROVIDERS: ADMIT Internal Medicine; ATTEND Internal Medicine
DX: K62.5 Hemorrhage of anus and rectum (principal); N17.9 Acute kidney failure, unspecified; E87.1 Hypo-osmolality and hyponatremia; Z20.822 Contact with and (suspected) exposure to COVID-19; Z86.16 Personal history of COVID-19; K80.20 Calculus of gallbladder without cholecystitis without obstruction; K70.31 Alcoholic cirrhosis of liver with ascites; R31.9 Hematuria, unspecified; R79.1 Abnormal coagulation profile; I10 Essential (primary) hypertension; Z86.718 Personal history of other venous thrombosis and embolism; D64.9 Anemia, unspecified; F17.200 Nicotine dependence, unspecified, uncomplicated; R04.0 Epistaxis; Z79.899 Other long term (current) drug therapy; Z82.3 Family history of stroke; Z82.49 Family history of ischemic heart disease and other diseases of the circulatory system; Z83.3 Family history of diabetes mellitus; Z87.01 Personal history of pneumonia (recurrent); R16.1 Splenomegaly, not elsewhere classified; R16.0 Hepatomegaly, not elsewhere classified
CPT/HCPCS: 36415; 74177; 76705; 80053; 81001; 82150; 82272; 83605; 83690; 85025; 85610; 85730; 87635; 96361; 96374; 96375; 96376; 99285